=== PATIENT | male | born 1945 | race Caucasian/White ===

== ENCOUNTER 2016-12-10 13:35 | Inpatient (IN) | payer MEDICARE, BC ==
[2016-12-10] MEDS ORDERED: Ondansetron 4 MG/2 ML SDV IVPUSH ONE (14:00)
--- NOTE | 2016-12-10 15:09 | EDM.PDOC ---
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 He had a major stroke in April 01, 2005 and another one in June of 2005 that has left him with residual left sided weakness. He was being walked out to the car at around one pm today and he had weakness and was not following commands easily but he did kneel down to his knees gently. His says that she thinks he has had a number of TIA's or small strokes in the last 2 weeks and she thinks this is probably another one occurring. No pain and new symptoms other than problems with control of bowel and bladder off and on the last 2 weeks. Onset: Gradual Onset Date: 11/26/16 Onset Time: 07:00 Duration: Week(s): (2) Location: Reports: Upper Extremity, Left, Lower Extremity, Left Quality: Reports: Same as Previous Episode Severity: Mild Improves with: Reports: None Worsens with: Reports: None Context: Reports: Other (History of shunt and strokes.) Associated Symptoms: Reports: Nausea/Vomiting Treatments [employer] SAL[employer]GER: Reports: Other (see below) (Plavix) - Related Data Allergies Allergy/AdvReac Type Severity Reaction Status Date / Time acetaminophen [From Tylenol] Allergy Hives Verified 12/10/16 13:53 codeine Allergy Hives Verified 12/10/16 13:53 ibuprofen Allergy Hives Verified 12/10/16 13:53 morphine Allergy Hives Verified 12/10/16 13:53 sulfamethoxazole Allergy Hives Verified 12/10/16 13:53 [Sulfamethoxazole] Home Meds: Home Meds Indomethacin 25 mg PO TID PRN 10/28/12 [History] Loperamide [Imodium AD] 1 mg PO BID PRN 10/28/12 [History] Losartan Potassium 25 mg PO DAILY 10/28/12 [History] Sertraline HCl 200 mg PO DAILY 10/28/12 [History] Clopidogrel Bisulfate [Plavix] 75 mg PO DAILY 12/26/15 [History] Rosuvastatin Calcium [Rosuvastatin Calcium] 20 mg PO QPM 12/10/16 [History] Past Medical History HEENT History: Reports: Hard of Hearing, Impaired Vision Cardiovascular History: Reports: High Cholesterol, Hypertension Other Cardiovascular History: hydrocephalus Respiratory History: Reports: Sleep Apnea, SOB, Other (See Below) Other Respiratory History: left thoracic outlet syndrome Gastrointestinal History: Reports: Chronic Diarrhea, Hemorrhoids Other Gastrointestinal History: uses anit-diarrhea med but then became constipated Genitourinary History: Reports: None Musculoskeletal History: Reports: Back Pain, Chronic, Fracture Other Musculoskeletal History: R hip, L arm and leg parasthesia and increased muscle tone from CVA Neurological History: Reports: CVA, TIA, Other (See Below) Other Neuro History: 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 Psychiatric History: Reports: Depression Endocrine/Metabolic History: Reports: None Hematologic History: Reports: None Immunologic History: Reports: None Oncologic (Cancer) History: Reports: None Dermatologic History: Reports: Other (See Below) - Infectious Disease History Infectious Disease History: Reports: Chicken Pox, Influenza, Measles, MRSA, Mumps, Pertussis (Whooping Cough) - Past Surgical History Respiratory Surgical History: Reports: Other (See Below) Other Respiratory Surgeries/Procedures: removed 1st left rib GI Surgical History: Reports: Other (See Below) Other GI Surgeries/Procedures: hemorrhoidectomy Neurological Surgical History: Reports: Laminectomy, Lumbar Spine, Other (See Below) Other Neurological Surgeries/Procedures: shunt revisions Musculoskeletal Surgical History: Reports: Shoulder Surgery Social & Family History - Family History Family Medical History: Noncontributory - Tobacco Use Smoking Status *Q: Former Smoker - Caffeine Use Caffeine Use: Reports: Soda, Tea - Recreational Drug Use Recreational Drug Use: No ED ROS GENERAL - Review of Systems Review Of Systems: See Below Constitutional: Reports: Weakness HEENT: Reports: No Symptoms Respiratory: Reports: No Symptoms Cardiovascular: Reports: No Symptoms Endocrine: Reports: No Symptoms GI/Abdominal: Reports: Stool Incontinence : Reports: Incontinence Musculoskeletal: Reports: No Symptoms Skin: Reports: No Symptoms Neurological: Reports: Confusion (Left sided weakness worse and confused.), Difficulty Walking, Weakness Psychiatric: Reports: No Symptoms Hematologic/Lymphatic: Reports: No Symptoms Immunologic: Reports: No Symptoms ED EXAM, NEURO - Physical Exam Exam: See Below Exam Limited By: No Limitations General Appearance: Alert, WD/WN, No Apparent Distress Eye Exam: Bilateral Eye: EOMI, Normal Fundi, PERRL Ears: Normal External Exam, Normal Canal, Hearing Grossly Normal, Normal TMs Nose: Normal Inspection, Normal Mucosa, No Blood Throat/Mouth: Normal Inspection, Normal Lips, Normal Teeth, Normal Gums, Normal Oropharynx, Normal Voice, No Airway Compromise Head Exam: Atraumatic, Normocephalic Neck: Normal Inspection Respiratory/Chest: No Respiratory Distress, Lungs Clear, Normal Breath Sounds, No Accessory Muscle Use, Chest Non-Tender Cardiovascular: Normal Peripheral Pulses, Regular Rate, Rhythm, No Edema, No Gallop, No JVD, No Murmur, No Rub GI/Abdominal: Normal Bowel Sounds, Soft, Non-Tender, No Organomegaly, No Distention, No Abnormal Bruit, No Mass Neurological: Alert, Normal Mood/Affect, Difficulty Walking, Other (Left arm and left leg weak and in an AFO on the left lower leg.) Extremities: Normal Inspection, Non-Tender, No Pedal Edema, Normal Capillary Refill Psychiatric: Normal Affect, Normal Mood Skin Exam: Warm, Dry, Intact, Normal Color, No Rash EKG INTERPRETATION EKG Date: 12/10/16 Rhythm: NSR [place]: Normal P-Wave: Present QRS: Normal ST-T: Normal QT: Normal Comparison: NA - No Prior EKG Course - Vital Signs Last Recorded V/S: Patient had an uneventful ED course. His EKG and Troponin were normal and his Head CT showed his old stroke but nothing new. He will be admitted to the hospital on observation to carefully watch his neuro checks. He will be continued on Plavix and all of his other medications and PT and OT will be ordered to help rehabilitation tomorrow. Dr. Vargas will see him in the AM. - Orders/Labs/Meds Orders: Active Orders 24 hr Category Date Time Status EKG Documentation Completion [RC] ASDIRECTED Care 12/10/16 13:58 Active Head wo Cont [CT] Stat Exams 12/10/16 13:58 Taken Sodium Chloride 0.9% [Saline Flush] Med 12/10/16 13:59 Active 10 ml FLUSH ASDIRECTED PRN Saline Lock Insert [OM.PC] Routine Oth 12/10/16 13:59 Ordered Medication Orders Sodium Chloride (Saline Flush) 10 ml FLUSH ASDIRECTED PRN PRN Reason: Keep Vein Open Labs: Laboratory Tests 12/10/16 12/10/16 Range/Units 14:15 14:15 WBC 5.8 (4.0-11.0) K/uL RBC 4.77 (4.50-6.50) M/uL Hgb 14.3 (13.0-18.0) g/dL Hct 42.4 (40.0-54.0) % MCV 89 (76-96) fL MCH 30.0 (27.0-32.0) pg MCHC 33.7 (31.0-35.0) g/dL RDW 13.5 (11.0-16.0) % Plt Count 160 (150-400) K/uL MPV 10.4 H (6.0-10.0) fL Neut % (Auto) 69.0 (45.0-70.0) % Lymph % (Auto) 21.9 (20.0-40.0) % [place] % (Auto) 7.4 (3.0-10.0) % Eos % (Auto) 1.5 (1.0-5.0) % Baso % (Auto) 0.2 (0.0-0.5) % Neut # (Auto) 4.03 (2.00-7.50) K/uL Lymph # (Auto) 1.28 L (1.50-4.00) K/uL [place] # (Auto) 0.43 (0.20-0.80) K/uL Eos # (Auto) 0.09 (0.04-0.40) K/uL Baso # (Auto) 0.01 L (0.02-0.10) K/uL Sodium 141 (136-145) mmol/L Potassium 4.1 (3.5-5.1) mmol/L Chloride 106 (98-107) mmol/L Carbon Dioxide 23.2 (21.0-32.0) mmol/L Anion Gap 15.9 H (5.0-15.0) mmol/L BUN 13 (8-26) mg/dL Creatinine 1.11 (0.70-1.30) mg/dL Est Cr Clr Drug Dosing TNP Estimated GFR (MDRD) > 60 (>60) MLS/MIN BUN/Creatinine Ratio 11.7 (6-25) Glucose 137 H D (74-100) mg/dL Calcium 9.4 (8.5-10.1) mg/dL Total Bilirubin 0.4 (0.0-1.0) mg/dL AST 26 (15-37) U/L ALT 33 (12-78) U/L Alkaline Phosphatase 84 (46-116) U/L Troponin I < 0.017 (0.000-0.060) ng/mL Total Protein 7.3 (6.4-8.2) g/dL Albumin 4.0 (3.4-5.0) g/dL Globulin 3.3 (2.2-4.2) g/dL Albumin/Globulin Ratio 1.2 (0.8-2.0) Meds: Medications Generic Name Dose Route Start Last Admin Trade Name Freq PRN Reason Stop Dose Admin Sodium Chloride 10 ml 12/10/16 13:59 Saline Flush FLUSH ASDIRECTED PRN Keep Vein Open Discontinued Medications Generic Name Dose Route Start Last Admin Trade Name Freq PRN Reason Stop Dose Admin Ondansetron HCl 4 mg 12/10/16 14:00 12/10/16 14:36 Zofran IVPUSH 12/10/16 14:01 4 mg ONETIME ONE Administration Departure - Departure Time of Disposition: 15:17 Disposition: Refer to Observation Condition: Fair Clinical Impression: TIA on medication - Discharge Information - My Orders Last 24 Hours: My Active Orders 12/10/16 13:58 EKG Documentation Completion [RC] ASDIRECTED Head wo Cont [CT] Stat 12/10/16 13:59 Sodium Chloride 0.9% [Saline Flush] 10 ml FLUSH ASDIRECTED PRN Saline Lock Insert [OM.PC] Routine - Assessment/Plan Last 24 Hours: My Active Orders 12/10/16 13:58 EKG Documentation Completion [RC] ASDIRECTED Head wo Cont [CT] Stat 12/10/16 13:59 Sodium Chloride 0.9% [Saline Flush] 10 ml FLUSH ASDIRECTED PRN Saline Lock Insert [OM.PC] Routine
[2016-12-10] MEDS ORDERED: Loperamide 1 MG/5 ML ML Solution 120 ML Bottle PO PRN (17:24)
[2016-12-10] MEDS: Non-Formulary Medication 1 Each (Rosuvastatin Calcium [Rosuvastatin Calcium] 20 MG) PO SCH (20:07)
--- NOTE | 2016-12-10 20:13 | CT ---
DATE OF SERVICE: 12/10/2016 CLINICAL DATA: TIA. UNENHANCED BRAIN CT Multislice acquisition through the brain without IV contrast was performed. No priors. There is diffuse cerebral atrophy. There is a ASSEM[employer] LINE shunt in place with its distal tip in the right lateral ventricle. There is distention of the lateral and third ventricles out of proportion to the degree of atrophy. There is extensive encephalomalacia within the right hemisphere consistent with a prior infarct. No masses. No intracranial hemorrhage. No evidence of acute or subacute infarct. IMPRESSION: Multiple abnormalities. None of these appear to be acute. Comparison with a prior CT may be helpful. [id number] MTDD
[2016-12-11] MEDS: LOSARTAN POTASSIUM 25 MG PO SCH (07:27)
[2016-12-11] MEDS: Loperamide 1 MG/5 ML ML Solution 120 ML Bottle PO SCH ×2 (07:27→19:41)
[2016-12-11] MEDS: SERTRALINE HCL 200 MG PO SCH (07:27)
[2016-12-11] MEDS: CLOPIDOGREL BISULFATE 75 MG PO SCH (07:27)
[2016-12-11] MEDS ORDERED: Bisacodyl 10 MG Supp ONE (14:12)
[2016-12-11] MEDS ORDERED: Bisacodyl 10 MG Supp RECTAL ONE (14:15)
--- NOTE | 2016-12-11 14:23 | PCM.PN ---
- General Info Date of Service: 12/11/16 Subjective Update: This is a pleasant 70yo M with multiple prior TIA's and history of CVA with hemiparesis in observation due to recent episode of TIA like symptoms. He remains confused and weak. notes difficulty in movement, speech and recall/ memory with minimal improvement since placed in observation. - Review of Systems General: Reports: Weakness HEENT: Reports: No Symptoms Pulmonary: Reports: No Symptoms Cardiovascular: Reports: No Symptoms Gastrointestinal: Reports: No Symptoms Genitourinary: Reports: No Symptoms Musculoskeletal: Reports: Arm Pain, Back Pain Skin: Reports: No Symptoms Neurological: Reports: Pre-Existing Deficit, Weakness Psychiatric: Reports: Confusion - Patient Data Vitals - Most Recent: Last Vital Signs Temp 35.8 C 12/11/16 12:00 Pulse 72 12/11/16 12:00 Resp 18 12/11/16 12:00 BP 113/80 12/11/16 12:00 Pulse Ox 97 12/11/16 12:00 Weight - Most Recent: 103.873 kg Med Orders - Current: Current Medications Loperamide HCl (Imodium) 1 mg PO BID [facility] Last Admin: 12/11/16 07:27 Dose: 1 mg Non-Formulary Medication (Clopidogrel Bisulfate [Plavix]) 75 mg PO DAILY [facility] Last Admin: 12/11/16 07:27 Dose: 75 mg Non-Formulary Medication (Losartan Potassium [Losartan Potassium]) 25 mg PO DAILY [facility] Last Admin: 12/11/16 07:27 Dose: 25 mg Non-Formulary Medication (Rosuvastatin Calcium [Rosuvastatin Calcium]) 20 mg PO QPM [facility] Last Admin: 12/10/16 20:07 Dose: 20 mg Non-Formulary Medication (Sertraline Hcl [Sertraline Hcl]) 200 mg PO DAILY [facility] Last Admin: 12/11/16 07:27 Dose: 200 mg Sodium Chloride (Saline Flush) 10 ml FLUSH ASDIRECTED PRN PRN Reason: Keep Vein Open Discontinued Medications Bisacodyl (Dulcolax) Confirm Administered Dose 10 mg .ROUTE .STK-MED ONE Stop: 12/11/16 14:13 Loperamide HCl (Imodium) 1 mg PO BID PRN PRN Reason: Diarrhea Last Admin: 12/10/16 20:06 Dose: 1 mg Ondansetron HCl (Zofran) 4 mg IVPUSH ONETIME ONE Stop: 12/10/16 14:01 Last Admin: 12/10/16 14:36 Dose: 4 mg - Exam General: Alert, Cooperative HEENT: Pupils Equal, Pupils Reactive, EOMI Neck: Supple Lungs: Clear to Auscultation, Normal Respiratory Effort Cardiovascular: Regular Rate, Regular Rhythm GI/Abdominal Exam: Normal Bowel Sounds Extremities: Arm Pain, Leg Pain Peripheral Pulses: 2+: Dorsalis Pedis (L), Dorsalis Pedis (R) Skin: Warm, Dry, Intact Neurological: No New Focal Deficit, Other (weakness) Psy/Mental Status: Alert, Normal Affect, Normal Mood - Problem List & Annotations (1) TIA on medication SNOMED Code(s): 068001423 Code(s): G45.9 - TRANSIENT CEREBRAL ISCHEMIC ATTACK, UNSPECIFIED Status: Acute Current Visit: Yes (2) Weakness of lower extremity SNOMED Code(s): 177313161 Code(s): M62.81 - MUSCLE WEAKNESS (GENERALIZED) Status: Acute Current Visit: No Onset Date: ~09/30/15 (3) Falls SNOMED Code(s): 0165732 Code(s): W19.XXXA - UNSPECIFIED FALL, INITIAL ENCOUNTER Status: Acute Current Visit: No Onset Date: ~09/30/15 (4) Knee pain SNOMED Code(s): 10002844 Code(s): M25.569 - PAIN IN UNSPECIFIED KNEE Status: Acute Current Visit: No Onset Date: ~09/30/15 - Problem List Review Problem List Initiated/Reviewed/Updated: Yes - My Orders Last 24 Hours: My Active Orders 12/11/16 13:51 Patient Status [ADT] Routine - Plan Plan:: Patient to be admitted for recent TIAs. It does appear he has had multiple minor TIA and possible stroke as well due to new onset weakness and confusion. Continue on current medication and Neuro checks.
[2016-12-11] MEDS ORDERED: Rosuvastatin 20 MG Tab ONE (19:39)
[2016-12-11] MEDS ORDERED: Loperamide 2 MG Cap ONE (19:39)
[2016-12-11] MEDS: Non-Formulary Medication 1 Each (Rosuvastatin Calcium [Rosuvastatin Calcium] 20 MG) PO SCH (19:41)
[2016-12-11] MEDS: Sodium Chloride 0.9% 10 ML Syringe FLUSH PRN (20:59)
[2016-12-12] MEDS ORDERED: Clopidogrel 75 MG Tab ONE (08:05)
[2016-12-12] MEDS ORDERED: Losartan 25 MG Tab ONE (08:07)
[2016-12-12] MEDS ORDERED: Loperamide 2 MG Cap ONE (08:09)
[2016-12-12] MEDS ORDERED: Sertraline 100 MG Tab ONE (08:10)
[2016-12-12] MEDS: CLOPIDOGREL BISULFATE 75 MG PO SCH (08:12)
[2016-12-12] MEDS: SERTRALINE HCL 200 MG PO SCH (08:13)
[2016-12-12] MEDS: LOSARTAN POTASSIUM 25 MG PO SCH (08:14)
[2016-12-12] MEDS: Loperamide 1 MG/5 ML ML Solution 120 ML Bottle PO SCH ×2 (08:32→19:56)
--- NOTE | 2016-12-12 10:52 | PCM.PN ---
- General Info Date of Service: 12/12/16 Subjective Update: This is a 70yo M here for recent TIA and likely mini-strokes for monitoring and PT/OT as needed. Patient has improved confusion today and able to recall the events around the memory loss. He has slightly improved strength and cognition. Functional Status: Reports: Pain Controlled, Tolerating Diet - Review of Systems General: Reports: Weakness HEENT: Reports: No Symptoms Pulmonary: Reports: No Symptoms Cardiovascular: Reports: No Symptoms Gastrointestinal: Reports: No Symptoms Genitourinary: Reports: No Symptoms Musculoskeletal: Reports: Shoulder Pain, Back Pain Skin: Reports: No Symptoms Neurological: Reports: Pre-Existing Deficit, Weakness, Gait Disturbance - Patient Data Vitals - Most Recent: Last Vital Signs Temp 36.3 C 12/12/16 08:34 Pulse 96 12/12/16 08:34 Resp 16 12/12/16 08:34 BP 134/75 12/12/16 08:34 Pulse Ox 96 12/12/16 08:34 Weight - Most Recent: 103.873 kg I&O - Last 24 Hours: Intake & Output 12/11/16 12/12/16 12/12/16 22:59 06:59 14:59 Output Total 275 Balance -275 Med Orders - Current: Current Medications Loperamide HCl (Imodium) 1 mg PO BID [facility] Last Admin: 12/12/16 08:32 Dose: 1 mg Non-Formulary Medication (Clopidogrel Bisulfate [Plavix]) 75 mg PO DAILY [facility] Last Admin: 12/12/16 08:12 Dose: 75 mg Non-Formulary Medication (Losartan Potassium [Losartan Potassium]) 25 mg PO DAILY [facility] Last Admin: 12/12/16 08:14 Dose: 25 mg Non-Formulary Medication (Rosuvastatin Calcium [Rosuvastatin Calcium]) 20 mg PO QPM [facility] Last Admin: 12/11/16 19:41 Dose: 20 mg Non-Formulary Medication (Sertraline Hcl [Sertraline Hcl]) 200 mg PO DAILY [facility] Last Admin: 12/12/16 08:13 Dose: 200 mg Sodium Chloride (Saline Flush) 10 ml FLUSH ASDIRECTED PRN PRN Reason: Keep Vein Open Last Admin: 12/11/16 20:59 Dose: 10 ml Discontinued Medications Bisacodyl (Dulcolax) Confirm Administered Dose 10 mg .ROUTE .STK-MED ONE Stop: 12/11/16 14:13 Last Admin: 12/11/16 14:20 Dose: Not Given Bisacodyl (Dulcolax) 10 mg RECTAL ONETIME ONE Stop: 12/11/16 14:16 Last Admin: 12/11/16 14:15 Dose: 10 mg Clopidogrel Bisulfate (Plavix) Confirm Administered Dose 75 mg .ROUTE .STK-MED ONE Stop: 12/12/16 08:06 Last Admin: 12/12/16 08:31 Dose: Not Given Loperamide HCl (Imodium) 1 mg PO BID PRN PRN Reason: Diarrhea Last Admin: 12/10/16 20:06 Dose: 1 mg Loperamide HCl (Imodium) Confirm Administered Dose 2 mg .ROUTE .STK-MED ONE Stop: 12/11/16 19:40 Last Admin: 12/11/16 19:42 Dose: Not Given Loperamide HCl (Imodium) Confirm Administered Dose 2 mg .ROUTE .STK-MED ONE Stop: 12/12/16 08:10 Last Admin: 12/12/16 08:32 Dose: Not Given Losartan Potassium (Cozaar) Confirm Administered Dose 25 mg .ROUTE .STK-MED ONE Stop: 12/12/16 08:08 Last Admin: 12/12/16 08:31 Dose: Not Given Ondansetron HCl (Zofran) 4 mg IVPUSH ONETIME ONE Stop: 12/10/16 14:01 Last Admin: 12/10/16 14:36 Dose: 4 mg Rosuvastatin Calcium (Crestor) Confirm Administered Dose 20 mg .ROUTE .STK-MED ONE Stop: 12/11/16 19:40 Last Admin: 12/11/16 19:42 Dose: Not Given Sertraline HCl (Zoloft) Confirm Administered Dose 200 mg .ROUTE .STK-MED ONE Stop: 12/12/16 08:11 Last Admin: 12/12/16 08:15 Dose: Not Given - Exam General: Alert, Oriented, Cooperative HEENT: Pupils Equal, Pupils Reactive, EOMI Neck: Supple Lungs: Clear to Auscultation, Normal Respiratory Effort Cardiovascular: Regular Rate, Regular Rhythm Extremities: Other (hemiparesis) Peripheral Pulses: 2+: Dorsalis Pedis (L), Dorsalis Pedis (R) - Problem List & Annotations (1) TIA on medication SNOMED Code(s): 537826632 Code(s): G45.9 - TRANSIENT CEREBRAL ISCHEMIC ATTACK, UNSPECIFIED Status: Acute Current Visit: Yes (2) Weakness of lower extremity SNOMED Code(s): 820956744 Code(s): M62.81 - MUSCLE WEAKNESS (GENERALIZED) Status: Acute Current Visit: No Onset Date: ~09/30/15 (3) Falls SNOMED Code(s): 5684810 Code(s): W19.XXXA - UNSPECIFIED FALL, INITIAL ENCOUNTER Status: Acute Current Visit: No Onset Date: ~09/30/15 (4) Knee pain SNOMED Code(s): 86932046 Code(s): M25.569 - PAIN IN UNSPECIFIED KNEE Status: Acute Current Visit: No Onset Date: ~09/30/15 - Problem List Review Problem List Initiated/Reviewed/Updated: Yes - My Orders Last 24 Hours: My Active Orders 12/12/16 09:03 CULTURE MRSA SURVEY [RM] Routine - Plan Plan:: Patient to be admitted for recent TIAs. It does appear he has had multiple minor TIA and possible stroke as well due to new onset weakness and confusion. Continue on current medication and Neuro checks. 12/12/16 Patient has improved from yesterday. There continues to be weakness and difficult with transfer and walking as his baseline has been with a walker. He will require further monitoring and PT/OT at this time. His cognition and confusion has improved. He still has a memory block and loss of time within that block. He does appear improved today compared to yesterday.
[2016-12-12] MEDS: Sodium Chloride 0.9% 10 ML Syringe FLUSH PRN ×2 (14:00→19:55)
[2016-12-12] MEDS ORDERED: CLOPIDOGREL BISULFATE 75 MG PO SCH (15:44)
[2016-12-12] MEDS ORDERED: Non-Formulary Medication 1 Each (Rosuvastatin Calcium [Rosuvastatin Calcium] 20 MG) PO SCH (15:45)
[2016-12-12] MEDS ORDERED: LOSARTAN POTASSIUM 25 MG PO SCH (15:45)
[2016-12-12] MEDS ORDERED: SERTRALINE HCL 200 MG PO SCH (15:45)
[2016-12-12] MEDS: Rosuvastatin 20 MG Tab PO SCH (19:56)
[2016-12-13] MEDS: Clopidogrel 75 MG Tab PO SCH (07:41)
[2016-12-13] MEDS: Losartan 25 MG Tab PO SCH (07:42)
[2016-12-13] MEDS: Sertraline 100 MG Tab PO SCH (07:44)
[2016-12-13] MEDS: Loperamide 1 MG/5 ML ML Solution 120 ML Bottle PO SCH (07:47)
[2016-12-13] MEDS ORDERED: Loperamide 2 MG Cap PO PRN (13:58)
[2016-12-13] MEDS ORDERED: Indomethacin 25 MG Cap PO PRN (14:11)
--- NOTE | 2016-12-13 16:52 | PCM.PN ---
- General Info Date of Service: 12/13/16 Subjective Update: Pt claims he feels better today. He was able to recognize me from 5 years ago when he was my patient on today's visit. feels he is improving. Able to feed well. Answering questions appropriately. No confusion. No weakness in the limbs, using his cane to move around in the room, with minimal assistance. - Review of Systems General: Denies: Fever, Weakness HEENT: Denies: Sinus Congestion Pulmonary: Denies: Cough, Sputum Cardiovascular: Denies: Chest Pain, Palpitations Gastrointestinal: Denies: Abdominal Pain, Constipation Genitourinary: Denies: Frequency, Burning Musculoskeletal: Denies: Shoulder Pain, Arm Pain, Joint Pain, Joint Swelling Skin: Denies: Bruising, Pruritis Neurological: Denies: Confusion, Dizziness, Headache, Paresthesia - Patient Data Vitals - Most Recent: Last Vital Signs Temp 97.8 F 12/13/16 08:00 Pulse 57 L 12/13/16 16:00 Resp 15 12/13/16 03:21 BP 136/62 12/13/16 16:00 Pulse Ox 96 12/13/16 16:00 Weight - Most Recent: 103.873 kg I&O - Last 24 Hours: Intake & Output 12/13/16 12/13/16 12/13/16 06:59 14:59 22:59 Intake Total 360 Output Total 300 Balance 60 Pedro Results Last 24 Hours: Microbiology 12/12/16 13:56 MRSA Surveillance Culture - Final Nasal, Unspecified NO MRSA ISOLATED Med Orders - Current: Current Medications Clopidogrel Bisulfate (Plavix) 75 mg PO DAILY [facility] Last Admin: 12/13/16 07:41 Dose: 75 mg Indomethacin (Indocin) 25 mg PO TID PRN PRN Reason: MILD PAIN Loperamide HCl (Imodium) 2 mg PO BID PRN PRN Reason: DIARRHEA Losartan Potassium (Cozaar) 25 mg PO DAILY [facility] Last Admin: 12/13/16 07:42 Dose: 25 mg Rosuvastatin Calcium (Crestor) 20 mg PO BEDTIME [facility] Last Admin: 12/12/16 19:56 Dose: 20 mg Sertraline HCl (Zoloft) 200 mg PO DAILY [facility] Last Admin: 12/13/16 07:44 Dose: 200 mg Sodium Chloride (Saline Flush) 10 ml FLUSH ASDIRECTED PRN PRN Reason: Keep Vein Open Last Admin: 12/12/16 19:55 Dose: 10 ml Discontinued Medications Bisacodyl (Dulcolax) Confirm Administered Dose 10 mg .ROUTE .STK-MED ONE Stop: 12/11/16 14:13 Last Admin: 12/11/16 14:20 Dose: Not Given Bisacodyl (Dulcolax) 10 mg RECTAL ONETIME ONE Stop: 12/11/16 14:16 Last Admin: 12/11/16 14:15 Dose: 10 mg Clopidogrel Bisulfate (Plavix) Confirm Administered Dose 75 mg .ROUTE .STK-MED ONE Stop: 12/12/16 08:06 Last Admin: 12/12/16 08:31 Dose: Not Given Loperamide HCl (Imodium) 1 mg PO BID PRN PRN Reason: Diarrhea Last Admin: 12/10/16 20:06 Dose: 1 mg Loperamide HCl (Imodium) 1 mg PO BID [facility] Last Admin: 12/13/16 07:47 Dose: Not Given Loperamide HCl (Imodium) Confirm Administered Dose 2 mg .ROUTE .STK-MED ONE Stop: 12/11/16 19:40 Last Admin: 12/11/16 19:42 Dose: Not Given Loperamide HCl (Imodium) Confirm Administered Dose 2 mg .ROUTE .STK-MED ONE Stop: 12/12/16 08:10 Last Admin: 12/12/16 08:32 Dose: Not Given Losartan Potassium (Cozaar) Confirm Administered Dose 25 mg .ROUTE .STK-MED ONE Stop: 12/12/16 08:08 Last Admin: 12/12/16 08:31 Dose: Not Given Non-Formulary Medication (Clopidogrel Bisulfate [Plavix]) 75 mg PO DAILY [facility] Last Admin: 12/12/16 08:12 Dose: 75 mg Non-Formulary Medication (Losartan Potassium [Losartan Potassium]) 25 mg PO DAILY [facility] Last Admin: 12/12/16 08:14 Dose: 25 mg Non-Formulary Medication (Rosuvastatin Calcium [Rosuvastatin Calcium]) 20 mg PO QPM [facility] Last Admin: 12/11/16 19:41 Dose: 20 mg Non-Formulary Medication (Sertraline Hcl [Sertraline Hcl]) 200 mg PO DAILY [facility] Last Admin: 12/12/16 08:13 Dose: 200 mg Non-Formulary Medication (Clopidogrel Bisulfate [Plavix]) 75 mg PO DAILY [facility] Non-Formulary Medication (Losartan Potassium [Losartan Potassium]) 25 mg PO DAILY [facility] Non-Formulary Medication (Rosuvastatin Calcium [Rosuvastatin Calcium]) 20 mg PO QPM [facility] Non-Formulary Medication (Sertraline Hcl [Sertraline Hcl]) 200 mg PO DAILY [facility] Ondansetron HCl (Zofran) 4 mg IVPUSH ONETIME ONE Stop: 12/10/16 14:01 Last Admin: 12/10/16 14:36 Dose: 4 mg Rosuvastatin Calcium (Crestor) Confirm Administered Dose 20 mg .ROUTE .STK-MED ONE Stop: 12/11/16 19:40 Last Admin: 12/11/16 19:42 Dose: Not Given Sertraline HCl (Zoloft) Confirm Administered Dose 200 mg .ROUTE .STK-MED ONE Stop: 12/12/16 08:11 Last Admin: 12/12/16 08:15 Dose: Not Given - Exam General: Alert, Oriented HEENT: Pupils Equal, Pupils Reactive, EOMI, Mucous Membr. 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 It does appear he has had multiple minor TIA and possible stroke as well due to new onset weakness and confusion. Continue on current medication and Neuro checks. 12/12/16 Patient has improved from yesterday. There continues to be weakness and difficult with transfer and walking as his baseline has been with a walker. He will require further monitoring and PT/OT at this time. His cognition and confusion has improved. He still has a memory block and loss of time within that block. He does appear improved today compared to yesterday. 12/13/16 On discussing with patient and his spouse, he had some weakness in his lower extremities, which was transient on the day of admission, but over the past 3 months now, he has been having episodes of confusion with time, side and situations, according to his . also he does get weakness in this right upper or lower extremity, which clears up on its own. Apparently he might be having TIAs or there could be carotid disease or non specific age related weakness or confusion. Hence I did order Carotid Doppler for him .Meanwhile will wait on physio-therapy evaluation. If he is at his baseline level of function, and his carotid ultrasound appear normal, will plan on discharge in the morning.
[2016-12-13] MEDS: Rosuvastatin 20 MG Tab PO SCH (21:46)
[2016-12-14] MEDS: Sertraline 100 MG Tab PO SCH (07:30)
[2016-12-14] MEDS: Clopidogrel 75 MG Tab PO SCH (07:31)
[2016-12-14] MEDS: Losartan 25 MG Tab PO SCH (07:37)
--- NOTE | 2016-12-14 17:12 | US ---
DATE OF SERVICE: 12/14/16 CLINICAL DATA: Old Left hemiplegia with Possible TIA DUPLEX CAROTID ULTRASOUND RIGHT CAROTID SYSTEM: There is antegrade flow. There is atherosclerotic plaquing in the carotid bulb and proximal ICA. The flow velocities are within normal limits. These findings are consistent with 0% to 50% stenosis. LEFT CAROTID SYSTEM: There is antegrade flow. There is minimal atherosclerotic plaquing in the carotid bulb. The flow velocities are within normal limits. These findings are consistent with 0% to 50% stenosis. VERTEBRAL SYSTEM: There is bilateral antegrade vertebral flow. [id number] [facility]
[2016-12-14] MEDS ORDERED: predniSONE 20 MG Tab ONE (18:11)
--- NOTE | 2016-12-14 18:13 | PCM.PN ---
- General Info Date of Service: 12/14/16 Subjective Update: Pt has been doing well today. He claims he feels at his baseline functioning. He did walk from his room to radiology and back 4 times today. he has developed some itchy rash over the legs today, which he has been scratching and the rash is locally spreading. He claims he is very sensitive to clothings and detergents. No fever or chills. Did have carotid ultrasound today. Functional Status: Reports: Pain Controlled, Tolerating Diet, Ambulating, Urinating - Review of Systems General: Denies: Fever, Weakness, Fatigue HEENT: Denies: Sinus Congestion, Rhinitis Pulmonary: Denies: Shortness of Breath, Cough, Hemoptysis Cardiovascular: Denies: Chest Pain, Lightheadedness Gastrointestinal: Denies: Abdominal Pain, Nausea, Vomiting Genitourinary: Denies: Dysuria, Frequency Musculoskeletal: Denies: Joint Pain, Joint Swelling Skin: Reports: Pruritis, Rash Neurological: Reports: Pre-Existing Deficit (left hemiparesis). Denies: Confusion, Dizziness - Patient Data Vitals - Most Recent: Last Vital Signs Temp 97.4 F 12/14/16 12:00 Pulse 62 12/14/16 12:00 Resp 18 12/14/16 04:00 BP 117/62 12/14/16 12:00 Pulse Ox 94 L 12/14/16 12:00 Weight - Most Recent: 103.873 kg Pedro Results Last 24 Hours: Microbiology 12/12/16 13:56 MRSA Surveillance Culture - Final Nasal, Unspecified NO MRSA ISOLATED Med Orders - Current: Current Medications Clopidogrel Bisulfate (Plavix) 75 mg PO DAILY [facility] Last Admin: 12/14/16 07:31 Dose: 75 mg Indomethacin (Indocin) 25 mg PO TID PRN PRN Reason: MILD PAIN Loperamide HCl (Imodium) 2 mg PO BID PRN PRN Reason: DIARRHEA Losartan Potassium (Cozaar) 25 mg PO DAILY [facility] Last Admin: 12/14/16 07:37 Dose: 25 mg Prednisone (Prednisone) 40 mg PO ONETIME ONE Stop: 12/14/16 18:05 Rosuvastatin Calcium (Crestor) 20 mg PO BEDTIME [facility] Last Admin: 12/13/16 21:46 Dose: 20 mg Sertraline HCl (Zoloft) 200 mg PO DAILY [facility] Last Admin: 12/14/16 07:30 Dose: 200 mg Sodium Chloride (Saline Flush) 10 ml FLUSH ASDIRECTED PRN PRN Reason: Keep Vein Open Last Admin: 12/12/16 19:55 Dose: 10 ml Discontinued Medications Bisacodyl (Dulcolax) Confirm Administered Dose 10 mg .ROUTE .STK-MED ONE Stop: 12/11/16 14:13 Last Admin: 12/11/16 14:20 Dose: Not Given Bisacodyl (Dulcolax) 10 mg RECTAL ONETIME ONE Stop: 12/11/16 14:16 Last Admin: 12/11/16 14:15 Dose: 10 mg Clopidogrel Bisulfate (Plavix) Confirm Administered Dose 75 mg .ROUTE .STK-MED ONE Stop: 12/12/16 08:06 Last Admin: 12/12/16 08:31 Dose: Not Given Loperamide HCl (Imodium) 1 mg PO BID PRN PRN Reason: Diarrhea Last Admin: 12/10/16 20:06 Dose: 1 mg Loperamide HCl (Imodium) 1 mg PO BID [facility] Last Admin: 12/13/16 07:47 Dose: Not Given Loperamide HCl (Imodium) Confirm Administered Dose 2 mg .ROUTE .STK-MED ONE Stop: 12/11/16 19:40 Last Admin: 12/11/16 19:42 Dose: Not Given Loperamide HCl (Imodium) Confirm Administered Dose 2 mg .ROUTE .STK-MED ONE Stop: 12/12/16 08:10 Last Admin: 12/12/16 08:32 Dose: Not Given Losartan Potassium (Cozaar) Confirm Administered Dose 25 mg .ROUTE .STK-MED ONE Stop: 12/12/16 08:08 Last Admin: 12/12/16 08:31 Dose: Not Given Non-Formulary Medication (Clopidogrel Bisulfate [Plavix]) 75 mg PO DAILY [facility] Last Admin: 12/12/16 08:12 Dose: 75 mg Non-Formulary Medication (Losartan Potassium [Losartan Potassium]) 25 mg PO DAILY [facility] Last Admin: 12/12/16 08:14 Dose: 25 mg Non-Formulary Medication (Rosuvastatin Calcium [Rosuvastatin Calcium]) 20 mg PO QPM [facility] Last Admin: 12/11/16 19:41 Dose: 20 mg Non-Formulary Medication (Sertraline Hcl [Sertraline Hcl]) 200 mg PO DAILY [facility] Last Admin: 12/12/16 08:13 Dose: 200 mg Non-Formulary Medication (Clopidogrel Bisulfate [Plavix]) 75 mg PO DAILY [facility] Non-Formulary Medication (Losartan Potassium [Losartan Potassium]) 25 mg PO DAILY [facility] Non-Formulary Medication (Rosuvastatin Calcium [Rosuvastatin Calcium]) 20 mg PO QPM [facility] Non-Formulary Medication (Sertraline Hcl [Sertraline Hcl]) 200 mg PO DAILY [facility] Ondansetron HCl (Zofran) 4 mg IVPUSH ONETIME ONE Stop: 12/10/16 14:01 Last Admin: 12/10/16 14:36 Dose: 4 mg Rosuvastatin Calcium (Crestor) Confirm Administered Dose 20 mg .ROUTE .STK-MED ONE Stop: 12/11/16 19:40 Last Admin: 12/11/16 19:42 Dose: Not Given Sertraline HCl (Zoloft) Confirm Administered Dose 200 mg .ROUTE .STK-MED ONE Stop: 12/12/16 08:11 Last Admin: 12/12/16 08:15 Dose: Not Given - Exam General: Alert, Oriented HEENT: Pupils Equal, Pupils Reactive, EOMI, Mucous Membr. Moist/[place] Neck: Supple Lungs: Clear to Auscultation, Normal Respiratory Effort Cardiovascular: Regular Rate, Regular Rhythm GI/Abdominal Exam: Normal Bowel Sounds, Soft, Non-Tender, No Organomegaly, No Distention, No Abnormal Bruit, No Mass, Pelvis Stable Skin: Warm, Intact, Rash (there is irregualr excoriated pinkish red rash over the left leg pu[place]. he has similar small lesion over he right leg. No oozing or discharge, sensitive to touch.) Neurological: No New Focal Deficit Psy/Mental Status: Alert, Normal Affect - Problem List & Annotations (1) TIA on medication SNOMED Code(s): 508071357 Code(s): G45.9 - TRANSIENT CEREBRAL ISCHEMIC ATTACK, UNSPECIFIED Status: Acute Current Visit: Yes (2) Contact dermatitis SNOMED Code(s): 33436348 Code(s): L25.9 - UNSPECIFIED CONTACT DERMATITIS, UNSPECIFIED CAUSE Status: Acute Current Visit: Yes - Problem List Review Problem List Initiated/Reviewed/Updated: Yes - My Orders Last 24 Hours: My Active Orders 12/14/16 18:04 predniSONE 40 mg PO ONETIME ONE - Assessment Assessment:: Recent TIA Contact dermatitis of the legs - Plan Plan:: Patient to be admitted for recent TIAs. It does appear he has had multiple minor TIA and possible stroke as well due to new onset weakness and confusion. Continue on current medication and Neuro checks. 12/12/16 Patient has improved from yesterday. There continues to be weakness and difficult with transfer and walking as his baseline has been with a walker. He will require further monitoring and PT/OT at this time. His cognition and confusion has improved. He still has a memory block and loss of time within that block. He does appear improved today compared to yesterday. 12/13/16 On discussing with patient and his spouse, he had some weakness in his lower extremities, which was transient on the day of admission, but over the past 3 months now, he has been having episodes of confusion with time, side and situations, according to his . also he does get weakness in this right upper or lower extremity, which clears up on its own. Apparently he might be having TIAs or there could be carotid disease or non specific age related weakness or confusion. Hence I did order Carotid Doppler for him .Meanwhile will wait on physio-therapy evaluation. If he is at his baseline level of function, and his carotid ultrasound appear normal, will plan on discharge in the morning. 12/14/16 Pt has developed contact dermatitis of the legs. Have started him on oral prednisone 40mg daily and also on hydrocortisone 0.5% cream on the rash as it is locally very itchy. w Also pt is at his baseline of functioning. He prefers to go home and have out patient OT and PT workup. Which I do agree. there is no reason for him to be in the hospital if he can do most of the activity of daily living with out assistance. He probably needs strengthening which can be done as outpatient. Also his Carotid Ultrasound report appears normal and the results were discussed with patient.
[2016-12-14] MEDS ORDERED: predniSONE 20 MG Tab PO ONE (18:30)
[2016-12-14] MEDS: Rosuvastatin 20 MG Tab PO SCH (19:31)
[2016-12-15] MEDS: Sertraline 100 MG Tab PO SCH (07:47)
[2016-12-15] MEDS: Losartan 25 MG Tab PO SCH (07:47)
[2016-12-15] MEDS: Clopidogrel 75 MG Tab PO SCH (07:47)
[2016-12-15 07:51] VITALS: BP 134/68
--- NOTE | 2016-12-15 10:19 | PCM.DCSUM1 ---
Discharge Summary - Hospital Course Free Text/Narrative:: Pt was admitted on 12/10/16 with diagnosis of possible TIA with weakness. he did have CT head, which basically was stable, with no acute infract or bleed. Pt did have weakness for which he had physiotherapy and Occupational therapy . He has improved . I did take over care on 12/13/16. Pt was alert and oriented times 3. He was able to walk to the bathroom and back to bed using his cane, but still weak. As , his diagnosis was TIA, I did get Carotid Ultrasound ordered to make sure that he does not have any significant stenosis or atheroscleoritc disease of the carotid. 12/14/16: Pt was feeling better and he did have his carotid Doppler done. He was able to walk close to 100 yards using his cane which is his base line. Evening we did get the carotid oppler results, which showed no significant stenosis of the carotids. Results were discussed with patient and his . Pt did develop contact dermatitis in the evening over his legs. Was started on prednisone and hydrocortisone cream 0.5%. : pt is feeling fine. No complaints. Tolerating diet well. Ambulating. The rash over the legs has significantly improved and patient has not been itching the rash. Plan is to place patient on tapering dose of prednisone for 3 more day and hydrocortisone cream on the rash once daily. Continue home medications. Also Continue out patient physical therapy and occupational therapy for his back. Brief History: Pt had lower extremity weakness at home on 12/10/16 when he was planning to got out [place]. He was evaluated inthe emergency room and was diagnosed with TIA and admitted for workup and therapy. Kindly see H&P for details. - Discharge Data Discharge Date: 12/15/16 Discharge Disposition: Home, Self-Care 01 Condition: Good - Discharge Diagnosis/Problem(s) (1) TIA on medication SNOMED Code(s): 626667085 ICD Code: G45.9 - TRANSIENT CEREBRAL ISCHEMIC ATTACK, UNSPECIFIED Status: Acute Current Visit: Yes (2) Contact dermatitis SNOMED Code(s): 35104779 ICD Code: L25.9 - UNSPECIFIED CONTACT DERMATITIS, UNSPECIFIED CAUSE Status : Acute Current Visit: Yes - Patient Summary/Data Consults: Consultations 12/12/16 13:51 OT Evaluation and Treatment [CONS] Routine Please Evaluate and Treat. OT Reason for Consult: ADL's This query below is only for informational purposes and is not editable. Admission Diagnosis/Problem: TIA, Transient ischemic attack PT Evaluation and Treatment [CONS] Routine Please Evaluate and Treat. PT Reason for Consult: Strengthening This query below is only for informational purposes and is not editable. Admission Diagnosis/Problem: TIA, Transient ischemic attack - Patient Instructions Diet: Heart Healthy Diet Fluid Restriction: 1500 mL Activity: As Tolerated - Discharge Plan Home Medications: Home Meds Indomethacin 25 mg PO TID PRN 10/28/12 [History] Loperamide [Imodium AD] 1 mg PO BID PRN 10/28/12 [History] Losartan Potassium 25 mg PO DAILY 10/28/12 [History] Sertraline HCl 200 mg PO DAILY 10/28/12 [History] Clopidogrel Bisulfate [Plavix] 75 mg PO DAILY 12/26/15 [History] Rosuvastatin Calcium 20 mg PO QPM 12/10/16 [History] Patient Handouts: Fall Prevention in the Home, [id number] Forms: ED Department Discharge Referrals: PCP,None [Primary Care Provider] - - General Info Date of Service: 12/15/16 Subjective Update: Pt has been doing good. He has been able to ambulate with his cane at baseline level of functioning. The rash over the legs has improved. not itching any more. tolerating diet well. Functional Status: Reports: Pain Controlled, Tolerating Diet, Ambulating, Urinating - Review of Systems General: Denies: Fever, Weakness HEENT: Denies: Headaches, Sinus Congestion, Rhinitis Pulmonary: Denies: Shortness of Breath, Cough, Sputum, Hemoptysis Cardiovascular: Denies: Chest Pain, Lightheadedness Genitourinary: Denies: Dysuria, Frequency Musculoskeletal: Denies: Joint Pain, Joint Swelling Skin: Reports: Pruritis, Rash Neurological: Reports: Pre-Existing Deficit (left hemiparesis). Denies: Confusion, Dizziness, Headache, Numbness, Tingling, Weakness - Patient Data Vitals - Most Recent: Last Vital Signs Temp 97.7 F 12/15/16 08:00 Pulse 56 L 12/15/16 08:00 Resp 18 12/15/16 08:00 BP 134/68 12/15/16 08:00 Pulse Ox 97 12/15/16 08:00 Weight - Most Recent: 103.873 kg Med Orders - Current: Current Medications Clopidogrel Bisulfate (Plavix) 75 mg PO DAILY [facility] Last Admin: 12/15/16 07:47 Dose: 75 mg Indomethacin (Indocin) 25 mg PO TID PRN PRN Reason: MILD PAIN Loperamide HCl (Imodium) 2 mg PO BID PRN PRN Reason: DIARRHEA Losartan Potassium (Cozaar) 25 mg PO DAILY [facility] Last Admin: 12/15/16 07:47 Dose: 25 mg Rosuvastatin Calcium (Crestor) 20 mg PO BEDTIME [facility] Last Admin: 12/14/16 19:31 Dose: 20 mg Sertraline HCl (Zoloft) 200 mg PO DAILY [facility] Last Admin: 12/15/16 07:47 Dose: 200 mg Sodium Chloride (Saline Flush) 10 ml FLUSH ASDIRECTED PRN PRN Reason: Keep Vein Open Last Admin: 12/12/16 19:55 Dose: 10 ml Discontinued Medications Bisacodyl (Dulcolax) Confirm Administered Dose 10 mg .ROUTE .STK-MED ONE Stop: 12/11/16 14:13 Last Admin: 12/11/16 14:20 Dose: Not Given Bisacodyl (Dulcolax) 10 mg RECTAL ONETIME ONE Stop: 12/11/16 14:16 Last Admin: 12/11/16 14:15 Dose: 10 mg Clopidogrel Bisulfate (Plavix) Confirm Administered Dose 75 mg .ROUTE .STK-MED ONE Stop: 12/12/16 08:06 Last Admin: 12/12/16 08:31 Dose: Not Given Loperamide HCl (Imodium) 1 mg PO BID PRN PRN Reason: Diarrhea Last Admin: 12/10/16 20:06 Dose: 1 mg Loperamide HCl (Imodium) 1 mg PO BID [facility] Last Admin: 12/13/16 07:47 Dose: Not Given Loperamide HCl (Imodium) Confirm Administered Dose 2 mg .ROUTE .STK-MED ONE Stop: 12/11/16 19:40 Last Admin: 12/11/16 19:42 Dose: Not Given Loperamide HCl (Imodium) Confirm Administered Dose 2 mg .ROUTE .STK-MED ONE Stop: 12/12/16 08:10 Last Admin: 12/12/16 08:32 Dose: Not Given Losartan Potassium (Cozaar) Confirm Administered Dose 25 mg .ROUTE .STK-MED ONE Stop: 12/12/16 08:08 Last Admin: 12/12/16 08:31 Dose: Not Given Non-Formulary Medication (Clopidogrel Bisulfate [Plavix]) 75 mg PO DAILY [facility] Last Admin: 12/12/16 08:12 Dose: 75 mg Non-Formulary Medication (Losartan Potassium [Losartan Potassium]) 25 mg PO DAILY [facility] Last Admin: 12/12/16 08:14 Dose: 25 mg Non-Formulary Medication (Rosuvastatin Calcium [Rosuvastatin Calcium]) 20 mg PO QPM [facility] Last Admin: 12/11/16 19:41 Dose: 20 mg Non-Formulary Medication (Sertraline Hcl [Sertraline Hcl]) 200 mg PO DAILY [facility] Last Admin: 12/12/16 08:13 Dose: 200 mg Non-Formulary Medication (Clopidogrel Bisulfate [Plavix]) 75 mg PO DAILY [facility] Non-Formulary Medication (Losartan Potassium [Losartan Potassium]) 25 mg PO DAILY [facility] Non-Formulary Medication (Rosuvastatin Calcium [Rosuvastatin Calcium]) 20 mg PO QPM [facility] Non-Formulary Medication (Sertraline Hcl [Sertraline Hcl]) 200 mg PO DAILY [facility] Ondansetron HCl (Zofran) 4 mg IVPUSH ONETIME ONE Stop: 12/10/16 14:01 Last Admin: 12/10/16 14:36 Dose: 4 mg Prednisone (Prednisone) 40 mg PO ONETIME ONE Stop: 12/14/16 18:31 Last Admin: 12/14/16 19:31 Dose: Not Given Prednisone (Prednisone) Confirm Administered Dose 40 mg .ROUTE .STK-MED ONE Stop: 12/14/16 18:12 Last Admin: 12/14/16 18:21 Dose: 40 mg Rosuvastatin Calcium (Crestor) Confirm Administered Dose 20 mg .ROUTE .STK-MED ONE Stop: 12/11/16 19:40 Last Admin: 12/11/16 19:42 Dose: Not Given Sertraline HCl (Zoloft) Confirm Administered Dose 200 mg .ROUTE .STK-MED ONE Stop: 12/12/16 08:11 Last Admin: 12/12/16 08:15 Dose: Not Given - Exam General: Reports: Alert, Oriented HEENT: Reports: Pupils Equal, Pupils Reactive, EOMI, Mucous Membr. Moist/[place] Neck: Reports: Supple Lungs: Reports: Clear to Auscultation, Normal Respiratory Effort Cardiovascular: Reports: Regular Rate, Regular Rhythm GI/Abdominal Exam: Normal Bowel Sounds, Soft, Non-Tender, No Organomegaly, No Distention, No Abnormal Bruit, No Mass, Pelvis Stable Extremities: Normal Inspection, Normal Range of Motion, Non-Tender, No Pedal Edema, Normal Capillary Refill, Other (rash over the anterior legs have significantly improved. No more skin itching) *Q Meaningful Use (DIS) - VTE *Q VTE Criteria *Q: - Stroke *Q Stroke Criteria *Q: - AMI *Q AMI Criteria *Q:
== END 2016-12-15 11:05 | disposition home or self-care (01) | DRG 69 ==
LOC: LB.ED 13:35 → LB.MS 15:18 → UNDOADMOB 15:25 → LB.MS 17:11 → INTOOBSV 12-11 13:51 → OBSVTOIN 12-11 13:51 → UNDODISIN 12-15 11:05
PROVIDERS: ADMIT Family Medicine; ATTEND Family Medicine
DX: G45.9 Transient cerebral ischemic attack, unspecified (principal); I69.354 Hemiplegia and hemiparesis following cerebral infarction affecting left non-dominant side; E78.5 Hyperlipidemia, unspecified; L25.9 Unspecified contact dermatitis, unspecified cause; I10 Essential (primary) hypertension; E78.00 Pure hypercholesterolemia, unspecified; G47.30 Sleep apnea, unspecified; R19.7 Diarrhea, unspecified; G89.29 Other chronic pain; M54.9 Dorsalgia, unspecified; F32.9 Major depressive disorder, single episode, unspecified; Z87.891 Personal history of nicotine dependence; H91.90 Unspecified hearing loss, unspecified ear; H54.7 Unspecified visual loss; Z98.2 Presence of cerebrospinal fluid drainage device; Z88.6 Allergy status to analgesic agent; Z88.5 Allergy status to narcotic agent; Z88.2 Allergy status to sulfonamides; Z88.8 Allergy status to other drugs, medicaments and biological substances; Z79.899 Other long term (current) drug therapy; M25.569 Pain in unspecified knee; W19.XXXA Unspecified fall, initial encounter
CPT/HCPCS: 36415; 70450; 80053; 84484; 85025; 93005; 96374; 97110; 97162; 99285; A0425; A0429; A9270 ×5; G0378 ×2; J2405; 93880; 97140-GO; 97166-GO; 97530-GO; 97530-GP; 97535-GO; J7050

== ENCOUNTER 2017-01-27 13:43 | Emergency (ER) | payer MEDICARE, BC ==
[2017-01-27 14:07] VITALS: BP 145/78
[2017-01-27] MEDS ORDERED: oxyCODONE 5 MG Tab PO ONE (14:28)
--- NOTE | 2017-01-27 15:34 | EDM.PDOC ---
ED HPI GENERAL MEDICAL PROBLEM - General Chief Complaint: General Stated Complaint: fall Time Seen by Provider: 01/27/17 14:30 Source of Information: Reports: Patient, EMS, EMS Notes Reviewed, Family History Limitations: Reports: No Limitations - History of Present Illness INITIAL COMMENTS - FREE TEXT/NARRATIVE: This is a 71yo M with hemiparesis post CVA here for a recent fall. He has had multiple falls since his prior CVA and TIA. He denies any chest pain, no loc, no neck pain but does have left rib pain. He states he recalls all events leading up to and after the fall. did observe the fall and notes that he got off balance and slid part way and bumped his head on a table during his slide to the ground and landed on his left side. He did not fall directly down and was a slower progression while bumping into the side table/dresser. Patient denies any trouble breathing or difficulty with deep breaths. Onset: Sudden Location: Reports: Other (left rib pain) Quality: Reports: Ache Severity: Moderate Improves with: Reports: None Worsens with: Reports: Movement Associated Symptoms: Reports: No Other Symptoms Treatments [employer]: Reports: Cervical Collar - Related Data Allergies Allergy/AdvReac Type Severity Reaction Status Date / Time acetaminophen [From Tylenol] Allergy Hives Verified 12/10/16 13:53 codeine Allergy Hives Verified 12/10/16 13:53 ibuprofen Allergy Hives Verified 12/10/16 13:53 morphine Allergy Hives Verified 12/10/16 13:53 sulfamethoxazole Allergy Hives Verified 12/10/16 13:53 [Sulfamethoxazole] Home Meds: Home Meds Indomethacin 25 mg PO TID PRN 10/28/12 [History] Loperamide [Imodium AD] 1 mg PO BID PRN 10/28/12 [History] Losartan Potassium 25 mg PO DAILY 10/28/12 [History] Sertraline HCl 200 mg PO DAILY 10/28/12 [History] Clopidogrel Bisulfate [Plavix] 75 mg PO DAILY 12/26/15 [History] Rosuvastatin Calcium 20 mg PO QPM 12/10/16 [History] Past Medical History HEENT History: Reports: Hard of Hearing, Impaired Vision Cardiovascular History: Reports: High Cholesterol, Hypertension Other Cardiovascular History: hydrocephalus Respiratory History: Reports: Sleep Apnea, SOB, Other (See Below) Other Respiratory History: left thoracic outlet syndrome Gastrointestinal History: Reports: Chronic Diarrhea, Hemorrhoids Other Gastrointestinal History: uses anit-diarrhea med but then became constipated Genitourinary History: Reports: None Musculoskeletal History: Reports: Back Pain, Chronic, Fracture Other Musculoskeletal History: R hip, L arm and leg parasthesia and increased muscle tone from CVA Neurological History: Reports: CVA, TIA, Other (See Below) Other Neuro History: 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 Psychiatric History: Reports: Depression Endocrine/Metabolic History: Reports: None Hematologic History: Reports: None Immunologic History: Reports: None Oncologic (Cancer) History: Reports: None Dermatologic History: Reports: Other (See Below) - Infectious Disease History Infectious Disease History: Reports: Chicken Pox, Influenza, Measles, MRSA, Mumps, Pertussis (Whooping Cough) - Past Surgical History Respiratory Surgical History: Reports: Other (See Below) Other Respiratory Surgeries/Procedures: removed 1st left rib GI Surgical History: Reports: Other (See Below) Other GI Surgeries/Procedures: hemorrhoidectomy Neurological Surgical History: Reports: Laminectomy, Lumbar Spine, Other (See Below) Other Neurological Surgeries/Procedures: shunt revisions Musculoskeletal Surgical History: Reports: Shoulder Surgery, Other (See Below) Other Musculoskeletal Surgeries/Procedures:: Laminectomy Social & Family History - Family History Family Medical History: Noncontributory - Tobacco Use Smoking Status *Q: Never Smoker Second Hand Smoke Exposure: No - Caffeine Use Caffeine Use: Reports: Coffee - Recreational Drug Use Recreational Drug Use: No ED ROS GENERAL - Review of Systems Review Of Systems: ROS reveals no pertinent complaints other than HPI. ED EXAM, GENERAL - Physical Exam Exam: See Below Exam Limited By: No Limitations General Appearance: Alert, WD/WN, No Apparent Distress Eye Exam: Bilateral Eye: EOMI, PERRL Head: Atraumatic, Normocephalic Neck: Normal Inspection Respiratory/Chest: No Respiratory Distress, Lungs Clear, Normal Breath Sounds, Other (pain on palpation of the intercostal muscles - mild rib tenderness on palpation of the left ribs) Cardiovascular: Normal Peripheral Pulses, Regular Rate, Rhythm GI/Abdominal: Normal Bowel Sounds Extremities: Normal Inspection Neurological: Alert, Oriented, Other (pre-existing hemiparesis) Psychiatric: Normal Affect, Normal Mood Skin Exam: Warm, Dry, Intact Course - Vital Signs Last Recorded V/S: Last Vital Signs Temp 36.9 C 01/27/17 14:05 Pulse 55 L 01/27/17 14:05 Resp 16 01/27/17 14:05 BP 145/78 H 01/27/17 14:05 Pulse Ox 99 01/27/17 14:05 - Orders/Labs/Meds Meds: Medications Discontinued Medications Generic Name Dose Route Start Last Admin Trade Name Freq PRN Reason Stop Dose Admin Oxycodone HCl 5 mg 01/27/17 14:28 01/27/17 14:30 Oxycodone PO 01/27/17 14:29 5 mg ONETIME ONE Administration Departure - Departure Time of Disposition: 15:10 Disposition: Home, Self-Care 01 Condition: Good Clinical Impression: Intercostal muscle strain Qualifiers: Encounter type: initial encounter Qualified Code(s): S29.011A - Strain of muscle and tendon of front wall of thorax, initial encounter Fall as cause of accidental injury at home as place of occurrence Qualifiers: Encounter type: initial encounter Qualified Code(s): W19.XXXA - Unspecified fall, initial encounter; Y92.009 - Unspecified place in unspecified non- institutional (private) residence as the place of occurrence of the external cause; Y92.009 - Unspecified place in unspecified non-institutional (private) residence as the place of occurrence of the external cause - Discharge Information Instructions: Rib Contusion Forms: ED Department Discharge Care Plan Goals: Follow up as needed. Take pain medication as needed. Return if symptoms worsen. - Problem List & Annotations (1) History of cerebrovascular accident (CVA) with residual deficit SNOMED Code(s): 870799813 Code(s): I69.30 - UNSPECIFIED SEQUELAE OF CEREBRAL INFARCTION Status: Acute (2) Weakness of lower extremity SNOMED Code(s): 328701503 Code(s): M62.81 - MUSCLE WEAKNESS (GENERALIZED) Status: Acute Onset Date : ~09/30/15 (3) Fall as cause of accidental injury at home as place of occurrence SNOMED Code(s): 20281702 Code(s): W19.XXXA - UNSPECIFIED FALL, INITIAL ENCOUNTER; Y92.009 - UNSP PLACE IN UNSP NON-INSTITUT (PRIVATE) RESIDENCE PLACE Status: Acute Qualifiers: Encounter type: initial encounter Qualified Code(s): W19.XXXA - Unspecified fall, initial encounter; Y92.009 - Unspecified place in unspecified non-institutional (private) residence as the place of occurrence of the external cause; Y92.009 - Unspecified place in unspecified non-institutional ( private) residence as the place of occurrence of the external cause (4) Intercostal muscle strain SNOMED Code(s): 873066922 Code(s): S29.011A - STRAIN OF MUSCLE AND TENDON OF FRONT WALL OF THORAX, INIT Status: Acute Qualifiers: Encounter type: initial encounter Qualified Code(s): S29.011A - Strain of muscle and tendon of front wall of thorax, initial encounter - Problem List Review Problem List Initiated/Reviewed/Updated: Yes - Assessment/Plan Plan: Patient placed on oxycodone as he has not had prior side effects or pruritis with this medication. Counseled on use of benadryl as needed. Sent home with 10 tablets to take q4-6 prn. F/u in clinic as needed. Continue close monitoring of neuro and breathing. F/u as directed.
== END 2017-01-27 14:55 | disposition home or self-care (01) ==
LOC: LB.ED 13:43
DX: S29.011A Strain of muscle and tendon of front wall of thorax, initial encounter (principal); E78.00 Pure hypercholesterolemia, unspecified; I10 Essential (primary) hypertension; Z86.73 Personal history of transient ischemic attack (TIA), and cerebral infarction without residual deficits; Z88.5 Allergy status to narcotic agent; Z88.6 Allergy status to analgesic agent; Z79.899 Other long term (current) drug therapy; Z88.2 Allergy status to sulfonamides; W19.XXXA Unspecified fall, initial encounter; Y92.009 Unspecified place in unspecified non-institutional (private) residence as the place of occurrence of the external cause
CPT/HCPCS: 99284; A0425; A0429; A9270; 99283

== ENCOUNTER 2017-01-29 08:38 | Inpatient (IN) | payer MEDICARE, BC ==
--- NOTE | 2017-01-29 11:01 | EDM.PDOC ---
ED HPI GENERAL MEDICAL PROBLEM - General Chief Complaint: General Stated Complaint: Weakness and difficulty with speech Time Seen by Provider: 01/29/17 09:00 Source of Information: Reports: Family, Old Records History Limitations: Reports: Other (decreased ability to respond, does not recall place or time, weaker than before) - History of Present Illness INITIAL COMMENTS - FREE TEXT/NARRATIVE: This is a 71yo M who was noted by to have a good night with eating and movement. He has had the left rib pain from the fall. He did read last night as his usual routine but this am he was very diaphoretic and did not respond as usual to routine conversation. He did not remember his and was unable to get out of bed and weak. There were no falling episodes or seizures but she did notice that his diaphoresis was worse and he has some tremors of the left hemiparetic side. Patient was brought to ER via EMS. Patient is alert and arousable but unable to recall date, time, location or recognize persons. He did slowly state he was in the hospital. He does speak clearly when asked but does take a longer time to respond. Onset: Unknown/Unsure Duration: Hour(s): Location: Reports: Generalized Improves with: Reports: None Worsens with: Reports: None Associated Symptoms: Reports: Diaphoresis, Weakness - Related Data Allergies Allergy/AdvReac Type Severity Reaction Status Date / Time acetaminophen [From Tylenol] Allergy Hives Verified 01/29/17 09:19 codeine Allergy Hives Verified 01/29/17 09:19 ibuprofen Allergy Hives Verified 01/29/17 09:19 morphine Allergy Hives Verified 01/29/17 09:19 sulfamethoxazole Allergy Hives Verified 01/29/17 09:19 [Sulfamethoxazole] Home Meds: Home Meds Indomethacin 25 mg PO TID PRN 10/28/12 [History] Loperamide [Imodium AD] 1 mg PO BID PRN 10/28/12 [History] Losartan Potassium 25 mg PO DAILY 10/28/12 [History] Sertraline HCl 200 mg PO DAILY 10/28/12 [History] Clopidogrel Bisulfate [Plavix] 75 mg PO DAILY 12/26/15 [History] Rosuvastatin Calcium 20 mg PO QPM 12/10/16 [History] Past Medical History HEENT History: Reports: Hard of Hearing, Impaired Vision Cardiovascular History: Reports: High Cholesterol, Hypertension Other Cardiovascular History: hydrocephalus Respiratory History: Reports: Sleep Apnea, SOB, Other (See Below) Other Respiratory History: left thoracic outlet syndrome Gastrointestinal History: Reports: Chronic Diarrhea, Hemorrhoids Other Gastrointestinal History: uses anit-diarrhea med but then became constipated Genitourinary History: Reports: None, Urinary Incontinence Musculoskeletal History: Reports: Back Pain, Chronic, Fracture Other Musculoskeletal History: R hip, L arm and leg parasthesia and increased muscle tone from CVA Neurological History: Reports: CVA, TIA, Other (See Below) Other Neuro History: 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 Psychiatric History: Reports: Depression Endocrine/Metabolic History: Reports: None Hematologic History: Reports: None Immunologic History: Reports: None Oncologic (Cancer) History: Reports: None Dermatologic History: Reports: Other (See Below) - Infectious Disease History Infectious Disease History: Reports: Chicken Pox, Influenza, Measles, MRSA, Mumps, Pertussis (Whooping Cough) - Past Surgical History Respiratory Surgical History: Reports: Other (See Below) Other Respiratory Surgeries/Procedures: removed 1st left rib GI Surgical History: Reports: Other (See Below) Other GI Surgeries/Procedures: hemorrhoidectomy Neurological Surgical History: Reports: Laminectomy, Lumbar Spine, Other (See Below) Other Neurological Surgeries/Procedures: shunt revisions Musculoskeletal Surgical History: Reports: Shoulder Surgery, Other (See Below) Other Musculoskeletal Surgeries/Procedures:: Laminectomy Social & Family History - Family History Family Medical History: Noncontributory - Tobacco Use Smoking Status *Q: Former Smoker Used Tobacco, but Quit: Yes Month Tobacco Last Used: none Tobacco Use Comment: Quit smoking in 1975 Second Hand Smoke Exposure: No - Caffeine Use Caffeine Use: Reports: Coffee - Recreational Drug Use Recreational Drug Use: No ED ROS GENERAL - Review of Systems Review Of Systems: ROS reveals no pertinent complaints other than HPI. ED EXAM, GENERAL - Physical Exam Exam: See Below Exam Limited By: Other (slow response to questions, good response to commands,) General Appearance: Alert, WD/WN, No Apparent Distress Eye Exam: Bilateral Eye: EOMI (patient on first contact in ER could not or did not follow commands of ocular movements; after CT head patient reassessed and able to track finger with EOMI), PERRL (sluggish) Ears: Normal External Exam Nose: Normal Inspection Throat/Mouth: Normal Inspection Head: Atraumatic, Normocephalic Neck: Normal Inspection Respiratory/Chest: No Respiratory Distress, Lungs Clear, Normal Breath Sounds Cardiovascular: Normal Peripheral Pulses, Regular Rate, Rhythm, Systolic Murmur Peripheral Pulses: 2+: Dorsalis Pedis (L), Dorsalis Pedis (R) GI/Abdominal: Normal Bowel Sounds Back Exam: Normal Inspection Extremities: Other (contractures of left hand and let foot - chronic) Neurological: Disoriented, Slow to Respond, Sensory/Motor Deficit, Other (pre- existing motor and sensory deficit as well as worsened strength of all extremites) Psychiatric: Normal Affect Skin Exam: Warm, Intact, Diaphoretic Course - Vital Signs Last Recorded V/S: Last Vital Signs Temp 36.4 C 01/29/17 08:48 Pulse 62 01/29/17 08:48 Resp 18 01/29/17 08:48 BP 147/79 H 01/29/17 08:48 Pulse Ox 93 L 01/29/17 08:48 - Orders/Labs/Meds Orders: Active Orders 24 hr Category Date Time Status Patient Status [ADT] Urgent ADT 01/29/17 11:48 Active EKG Documentation Completion [RC] ASDIRECTED Care 01/29/17 09:17 Active Oxygen Therapy [RC] PRN Care 01/29/17 11:49 Active VTE/DVT Education [RC] Per Unit Routine Care 01/29/17 11:49 Active Vital Signs [RC] Q30M Care 01/29/17 11:48 Active Head wo Cont [CT] Stat Exams 01/29/17 09:14 Taken CBC WITH AUTO DIFF [HEME] AM Lab 01/30/17 05:11 Ordered COMPREHENSIVE METABOLIC PN,CMP [CHEM] AM Lab 01/30/17 05:11 Ordered INR,PT,PROTHROMBIN TIME [COAG] AM Lab 01/30/17 05:11 Ordered MAGNESIUM [CHEM] AM Lab 01/31/17 05:11 Ordered Clopidogrel [Plavix] Med 01/30/17 08:00 Active 75 mg PO DAILY Enoxaparin [Lovenox] Med 01/29/17 20:00 Active 100 mg SUBCUT Q12HR Lactated Ringers [Ringers, Lactated] 1,000 ml Med 01/29/17 12:15 Active IV ASDIRECTED Loperamide [Imodium AD] Med 01/29/17 12:04 Pending 1 mg PO BID PRN Losartan [Cozaar] Med 01/30/17 08:00 Active 25 mg PO DAILY atorvaSTATin [Lipitor] Med 01/29/17 12:00 Active 80 mg PO BEDTIME Medication Orders Atorvastatin Calcium (Lipitor) 80 mg PO BEDTIME RUFINO Clopidogrel Bisulfate (Plavix) 75 mg PO DAILY [facility] Enoxaparin Sodium (Lovenox) 100 mg SUBCUT Q12HR RUFINO Lactated Ringer's (Ringers, Lactated) 1,000 mls @ 100 mls/hr IV ASDIRECTED RUFINO Losartan Potassium (Cozaar) 25 mg PO DAILY RUFINO Non-Formulary Medication (Loperamide [Imodium Ad]) 1 mg PO BID PRN PRN Reason: Diarrhea Labs: Laboratory Tests 01/29/17 01/29/17 01/29/17 Range/Units 09:30 09:30 09:30 WBC 8.1 D (4.0-11.0) K/uL RBC 4.76 (4.50-6.50) M/uL Hgb 14.4 (13.0-18.0) g/dL Hct 42.5 (40.0-54.0) % MCV 89 (76-96) fL MCH 30.3 (27.0-32.0) pg MCHC 33.9 (31.0-35.0) g/dL RDW 13.9 (11.0-16.0) % Plt Count 139 L (150-400) K/uL MPV 10.4 H (6.0-10.0) fL Neut % (Auto) 78.4 H (45.0-70.0) % Lymph % (Auto) 13.3 L (20.0-40.0) % Lea % (Auto) 7.6 (3.0-10.0) % Eos % (Auto) 0.5 L (1.0-5.0) % Baso % (Auto) 0.2 (0.0-0.5) % Neut # (Auto) 6.37 (2.00-7.50) K/uL Lymph # (Auto) 1.08 L (1.50-4.00) K/uL Lea # (Auto) 0.62 (0.20-0.80) K/uL Eos # (Auto) 0.04 (0.04-0.40) K/uL Baso # (Auto) 0.02 (0.02-0.10) K/uL PT 9.9 (9.0-11.5) sec INR 1.0 (1.0-3.5) Sodium 143 (136-145) mmol/L Potassium 4.2 (3.5-5.1) mmol/L Chloride 107 (98-107) mmol/L Carbon Dioxide 24.3 (21.0-32.0) mmol/L Anion Gap 15.9 H (5.0-15.0) mmol/L BUN 10 D (8-26) mg/dL Creatinine 0.93 (0.70-1.30) mg/dL Est Cr Clr Drug Dosing TNP Estimated GFR (MDRD) > 60 (>60) MLS/MIN BUN/Creatinine Ratio 10.8 (6-25) Glucose 123 H (74-100) mg/dL Calcium 9.2 (8.5-10.1) mg/dL Total Bilirubin 0.7 D (0.0-1.0) mg/dL AST 24 (15-37) U/L ALT 24 (12-78) U/L Alkaline Phosphatase 83 (46-116) U/L Troponin I < 0.017 (0.000-0.060) ng/mL Total Protein 7.4 (6.4-8.2) g/dL Albumin 3.9 (3.4-5.0) g/dL Globulin 3.5 (2.2-4.2) g/dL Albumin/Globulin Ratio 1.1 (0.8-2.0) TSH, Ultra Sensitive 1.265 (0.358-3.740) uIU/mL Meds: Medications Generic Name Dose Route Start Last Admin Trade Name Freq PRN Reason Stop Dose Admin Atorvastatin Calcium 80 mg 01/29/17 12:00 Lipitor PO BEDTIME [facility] Clopidogrel Bisulfate 75 mg 01/30/17 08:00 Plavix PO DAILY [facility] Enoxaparin Sodium 100 mg 01/29/17 20:00 Lovenox SUBCUT Q12HR [facility] Lactated Ringer's 1,000 mls @ 100 mls/hr 01/29/17 12:15 Ringers, Lactated IV ASDIRECTED [facility] Losartan Potassium 25 mg 01/30/17 08:00 Cozaar PO DAILY RUFINO Non-Formulary Medication 1 mg 01/29/17 12:04 Loperamide [Imodium Ad] PO BID PRN Diarrhea Discontinued Medications Generic Name Dose Route Start Last Admin Trade Name Hellen PRN Reason Stop Dose Admin Aspirin 324 mg 01/29/17 11:59 Aspirin PO 01/29/17 12:00 ONETIME ONE Cyanocobalamin 1,000 mcg 01/29/17 12:08 Vitamin B12 IM 01/29/17 12:09 ONETIME ONE - Re-Assessments/Exams Free Text/Narrative Re-Assessment/Exam: 01/29/[address] head and 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 Initially he was unable to grasp and aircraft powertrain repairer with all fingers. After CT head he was able to grasp with increased strength and bend all fingers. After another 30 minutes patient was moving his right arm freely and able to have increased strength. Speech improved slightly on re-examination with delayed response time and possible expressive aphasia. Initially patient was unable to recall who I was or location. He did state he was in the hospital. After CT reassessment shows he is able to recall that I am a Doctor. Date and Time have always been an issue and that is his baseline prior to this recent event. Departure - Departure Time of Disposition: 12:30 Disposition: Admitted As Inpatient 67 Condition: Undetermined Clinical Impression: CVA, Cerebrovascular accident - Discharge Information Referrals: PCP,None [Primary Care Provider] - Forms: ED Department Discharge Care Plan Goals: Patient already anticoagulated on Plavix. We will try supportive measures and place in Critical care unit for management. Discussed stroke center transfer and would like current measure here at [place]. Informed daughter (nurse) on phone of status and plan at bedside with and patient. Discussed use of high intensity statins but has concerns due to prior issue with memory loss and side effects so we will hold and continue on regular dose Rosuvastatin. Patient to be given 325 aspirin and started on lovenox prophylaxis. F/u labs in am. Continue monitoring and vitals/neuro checks. Patient present and counseled on eating - patient able to cough on command and appears to have a protected airway. Discussed close monitoring with feeding and agrees with close f/u and cessation if any concerns of aspiration. - My Orders Last 24 Hours: My Active Orders 01/29/17 09:14 Head wo Cont [CT] Stat 01/29/17 09:17 EKG Documentation Completion [RC] ASDIRECTED 01/29/17 11:48 Patient Status [ADT] Urgent Vital Signs [RC] Q30M 01/29/17 11:49 Oxygen Therapy [RC] PRN VTE/DVT Education [RC] Per Unit Routine 01/29/17 12:00 atorvaSTATin [Lipitor] 80 mg PO BEDTIME 01/29/17 12:04 Loperamide [Imodium AD] 1 mg PO BID PRN 01/29/17 12:15 Lactated Ringers [Ringers, Lactated] 1,000 ml IV ASDIRECTED 01/29/17 20:00 Enoxaparin [Lovenox] 100 mg SUBCUT Q12HR 01/30/17 05:11 CBC WITH AUTO DIFF [HEME] AM COMPREHENSIVE METABOLIC PN,CMP [CHEM] AM INR,PT,PROTHROMBIN TIME [COAG] AM 01/30/17 08:00 Clopidogrel [Plavix] 75 mg PO DAILY Losartan [Cozaar] 25 mg PO DAILY 01/31/17 05:11 MAGNESIUM [CHEM] AM - Assessment/Plan Last 24 Hours: My Active Orders 01/29/17 09:14 Head wo Cont [CT] Stat 01/29/17 09:17 EKG Documentation Completion [RC] ASDIRECTED 01/29/17 11:48 Patient Status [ADT] Urgent Vital Signs [RC] Q30M 01/29/17 11:49 Oxygen Therapy [RC] PRN VTE/DVT Education [RC] Per Unit Routine 01/29/17 12:00 atorvaSTATin [Lipitor] 80 mg PO BEDTIME 01/29/17 12:04 Loperamide [Imodium AD] 1 mg PO BID PRN 01/29/17 12:15 Lactated Ringers [Ringers, Lactated] 1,000 ml IV ASDIRECTED 01/29/17 20:00 Enoxaparin [Lovenox] 100 mg SUBCUT Q12HR 01/30/17 05:11 CBC WITH AUTO DIFF [HEME] AM COMPREHENSIVE METABOLIC PN,CMP [CHEM] AM INR,PT,PROTHROMBIN TIME [COAG] AM 01/30/17 08:00 Clopidogrel [Plavix] 75 mg PO DAILY Losartan [Cozaar] 25 mg PO DAILY 01/31/17 05:11 MAGNESIUM [CHEM] AM
[2017-01-29] MEDS ORDERED: Aspirin 81 MG Tab.Chew PO ONE (11:59)
[2017-01-29] MEDS ORDERED: LOPERAMIDE PO PRN (12:04)
[2017-01-29] MEDS ORDERED: Cyanocobalamin (Vitamin B12) 1,000 MCG/ML SDV IM ONE (12:08)
[2017-01-29] MEDS: Lactated Ringers 1,000 ML IV SCH (15:14)
[2017-01-29] MEDS ORDERED: Aspirin 325 MG Tab.EC ONE (15:21)
[2017-01-29] MEDS ORDERED: atorvaSTATin 80 MG Tab ONE ×2 (15:22→19:49)
[2017-01-29] MEDS ORDERED: Cyanocobalamin (Vitamin B12) 1,000 MCG/ML SDV ONE (15:23)
[2017-01-29] MEDS: atorvaSTATin 80 MG Tab PO SCH ×2 (15:24→19:52)
--- NOTE | 2017-01-29 19:15 | PCM.SN ---
- Free Text/Narrative Note: Frederic states he feels fine. He does continue to exhibit expressive aphasia. He knows he is in the hospital but cannot say the 'hospital'. He has improved strength of the right arm and leg. He ate well today. We will continue current monitoring and management. Consider repeat CT in am as needed.
[2017-01-29] MEDS ORDERED: Rosuvastatin 20 MG Tab ONE (19:47)
[2017-01-29] MEDS ORDERED: Enoxaparin 100 MG/1 ML Syringe ONE (19:49)
[2017-01-29] MEDS: Enoxaparin 100 MG/1 ML Syringe SUBCUT SCH (19:51)
[2017-01-29] MEDS: Rosuvastatin 20 MG Tab PO SCH (19:52)
[2017-01-30] MEDS: Lactated Ringers 1,000 ML IV SCH ×3 (00:48→20:25)
[2017-01-30] MEDS ORDERED: Losartan 25 MG Tab ONE (07:31)
[2017-01-30] MEDS ORDERED: Clopidogrel 75 MG Tab ONE (07:31)
[2017-01-30] MEDS ORDERED: Enoxaparin 100 MG/1 ML Syringe ONE ×2 (07:32→19:21)
[2017-01-30] MEDS: Enoxaparin 100 MG/1 ML Syringe SUBCUT SCH ×2 (07:50→19:24)
[2017-01-30] MEDS: Clopidogrel 75 MG Tab PO SCH (07:53)
[2017-01-30] MEDS: Losartan 25 MG Tab PO SCH (07:53)
[2017-01-30] MEDS ORDERED: Loperamide 2 MG Cap PO PRN (08:18)
[2017-01-30] MEDS ORDERED: Pneumococcal 13-Valent Conjugate Vaccine 0.5 ML Syringe IM ONE (08:26)
[2017-01-30] MEDS ORDERED: FLU Vacc QS 2017-18 (36mos UP)/PF 60 MCG/0.5 ML Syringe IM ONE (09:15)
--- NOTE | 2017-01-30 11:22 | CT ---
DATE OF SERVICE: 01/29/17 CLINICAL DATA: weakness, unresponsive UNENHANCED BRAIN CT: Multislice acquisition through the brain without IV contrast was performed. Comparison is made to a prior exam dated 12/10/16. There is diffuse cerebral atrophy. There is a COOKER CLEANER shunt in place. It is unchanged in position from the prior study. There is marked lateral and third ventriculomegaly, unchanged from the prior study. There is an extensive area of encephalomalacia involving the right cerebral hemisphere. This does appear to be more extensive than on the prior study. It is consistent with prior infarct. No masses or mass effect. No intracranial hemorrhage. No evidence of acute infarct. The remainder of the exam is stable from the prior. [id number] [facility]
[2017-01-30] MEDS: oxyCODONE 5 MG Tab PO PRN ×2 (16:55→22:01)
--- NOTE | 2017-01-30 17:47 | PCM.PN ---
- General Info Date of Service: 01/30/17 Subjective Update: There is some improvement on status. He has improved strength of the right side but cognitively still groggy and slow responding. He does not know the place, and does not recall time but able to recall that I am his provider. Functional Status: Reports: Tolerating Diet - Review of Systems General: Reports: Weakness Pulmonary: Reports: No Symptoms Cardiovascular: Reports: No Symptoms Neurological: Reports: Pre-Existing Deficit, Weakness, Change in Speech, Gait Disturbance Psychiatric: Reports: No Symptoms - Patient Data Vitals - Most Recent: Last Vital Signs Temp 36.9 C 01/30/17 08:00 Pulse 68 01/30/17 16:00 Resp 18 01/30/17 16:00 BP 119/68 01/30/17 16:00 Pulse Ox 96 01/30/17 16:00 Weight - Most Recent: 103.873 kg Lab Results Last 24 Hours: Laboratory Results - last 24 hr 01/30/17 01/30/17 01/30/17 Range/Units 07:40 07:40 07:40 WBC 7.6 (4.0-11.0) K/uL RBC 4.44 L (4.50-6.50) M/uL Hgb 13.4 (13.0-18.0) g/dL Hct 40.0 (40.0-54.0) % MCV 90 (76-96) fL MCH 30.2 (27.0-32.0) pg MCHC 33.5 (31.0-35.0) g/dL RDW 13.9 (11.0-16.0) % Plt Count 133 L (150-400) K/uL MPV 10.8 H (6.0-10.0) fL Neut % (Auto) 68.5 (45.0-70.0) % Lymph % (Auto) 21.2 (20.0-40.0) % Kane % (Auto) 9.0 (3.0-10.0) % Eos % (Auto) 1.2 (1.0-5.0) % Baso % (Auto) 0.1 (0.0-0.5) % Neut # (Auto) 5.19 (2.00-7.50) K/uL Lymph # (Auto) 1.61 (1.50-4.00) K/uL Kane # (Auto) 0.68 (0.20-0.80) K/uL Eos # (Auto) 0.09 (0.04-0.40) K/uL Baso # (Auto) 0.01 L (0.02-0.10) K/uL PT 10.0 (9.0-11.5) sec INR 1.0 (1.0-3.5) Sodium 147 H (136-145) mmol/L Potassium 3.9 (3.5-5.1) mmol/L Chloride 111 H (98-107) mmol/L Carbon Dioxide 25.4 (21.0-32.0) mmol/L Anion Gap 14.5 (5.0-15.0) mmol/L BUN 15 D (8-26) mg/dL Creatinine 0.89 (0.70-1.30) mg/dL Est Cr Clr Drug Dosing 84.77 mL/min Estimated GFR (MDRD) > 60 (>60) MLS/MIN BUN/Creatinine Ratio 16.9 (6-25) Glucose 119 H (74-100) mg/dL Calcium 8.9 (8.5-10.1) mg/dL Total Bilirubin 0.8 (0.0-1.0) mg/dL AST 36 (15-37) U/L ALT 23 (12-78) U/L Alkaline Phosphatase 75 (46-116) U/L Total Protein 6.9 (6.4-8.2) g/dL Albumin 3.7 (3.4-5.0) g/dL Globulin 3.2 (2.2-4.2) g/dL Albumin/Globulin Ratio 1.2 (0.8-2.0) Med Orders - Current: Current Medications Atorvastatin Calcium (Lipitor) 80 mg PO BEDTIME [facility] Last Admin: 01/29/17 19:52 Dose: 80 mg Clopidogrel Bisulfate (Plavix) 75 mg PO DAILY [facility] Last Admin: 01/30/17 07:53 Dose: 75 mg Enoxaparin Sodium (Lovenox) 100 mg SUBCUT Q12HR [facility] Last Admin: 01/30/17 07:50 Dose: 100 mg Lactated Ringer's (Ringers, Lactated) 1,000 mls @ 100 mls/hr IV ASDIRECTED [facility] Last Admin: 01/30/17 10:21 Dose: 100 mls/hr Loperamide HCl (Imodium) 2 mg PO BID PRN PRN Reason: DIARRHEA Losartan Potassium (Cozaar) 25 mg PO DAILY [facility] Last Admin: 01/30/17 07:53 Dose: 25 mg Oxycodone HCl (Oxycodone) 5 mg PO Q4H PRN PRN Reason: Pain Last Admin: 01/30/17 16:55 Dose: 5 mg Rosuvastatin Calcium (Crestor) 20 mg PO QPM [facility] Last Admin: 01/29/17 19:52 Dose: 20 mg Discontinued Medications Aspirin (Aspirin) 324 mg PO ONETIME ONE Stop: 01/29/17 12:00 Last Admin: 01/29/17 15:24 Dose: 324 mg Aspirin (Ecotrin) Confirm Administered Dose 325 mg .ROUTE .STK-MED ONE Stop: 01/29/17 15:22 Last Admin: 01/29/17 15:45 Dose: Not Given Atorvastatin Calcium (Lipitor) Confirm Administered Dose 80 mg .ROUTE .STK-MED ONE Stop: 01/29/17 15:23 Last Admin: 01/29/17 15:45 Dose: Not Given Atorvastatin Calcium (Lipitor) Confirm Administered Dose 80 mg .ROUTE .STK-MED ONE Stop: 01/29/17 19:50 Last Admin: 01/29/17 21:55 Dose: Not Given Clopidogrel Bisulfate (Plavix) Confirm Administered Dose 75 mg .ROUTE .STK-MED ONE Stop: 01/30/17 07:32 Last Admin: 01/30/17 07:46 Dose: Not Given Cyanocobalamin (Vitamin B12) 1,000 mcg IM ONETIME ONE Stop: 01/29/17 12:09 Last Admin: 01/29/17 15:24 Dose: 1,000 mcg Cyanocobalamin (Vitamin B12) Confirm Administered Dose 1,000 mcg .ROUTE .STK- MED ONE Stop: 01/29/17 15:24 Last Admin: 01/29/17 15:45 Dose: Not Given Enoxaparin Sodium (Lovenox) Confirm Administered Dose 100 mg .ROUTE .STK-MED ONE Stop: 01/29/17 19:50 Last Admin: 01/29/17 21:55 Dose: Not Given Enoxaparin Sodium (Lovenox) Confirm Administered Dose 100 mg .ROUTE .STK-MED ONE Stop: 01/30/17 07:33 Last Admin: 01/30/17 07:46 Dose: Not Given Influenza Virus Vaccine (Fluzone Quad [id number]) 60 mcg IM .ONCE ONE Stop: 01/30/17 09:16 Losartan Potassium (Cozaar) Confirm Administered Dose 25 mg .ROUTE .STK-MED ONE Stop: 01/30/17 07:32 Last Admin: 01/30/17 07:46 Dose: Not Given Pneumococcal 13-Valent Conj Vacc (Prevnar 13) 0.5 ml IM .ONCE ONE Stop: 01/30/17 08:27 Rosuvastatin Calcium (Crestor) Confirm Administered Dose 20 mg .ROUTE .STK-MED ONE Stop: 01/29/17 19:48 Last Admin: 01/29/17 19:52 Dose: Not Given - Exam General: Alert, Cooperative HEENT: Pupils Equal Neck: Supple Lungs: Clear to Auscultation, Normal Respiratory Effort Cardiovascular: Regular Rate, Regular Rhythm GI/Abdominal Exam: Normal Bowel Sounds Neurological: Other (left sided hemiparesis, right side weakness, difficulty with speech) - Problem List & Annotations (1) CVA, Cerebrovascular accident SNOMED Code(s): 693212592 Code(s): I63.9 - CEREBRAL INFARCTION, UNSPECIFIED Status: Acute Priority : High Current Visit: Yes (2) History of cerebrovascular accident (CVA) with residual deficit SNOMED Code(s): 332962112 Code(s): I69.30 - UNSPECIFIED SEQUELAE OF CEREBRAL INFARCTION Status: Acute Priority: High Current Visit: Yes (3) Weakness of lower extremity SNOMED Code(s): 584922645 Code(s): M62.81 - MUSCLE WEAKNESS (GENERALIZED) Status: Acute Priority: High Current Visit: Yes Onset Date: ~09/30/15 (4) HTN (hypertension) SNOMED Code(s): 78424794 Code(s): I10 - ESSENTIAL (PRIMARY) HYPERTENSION Status: Acute Priority: Medium Current Visit: Yes Qualifiers: Hypertension type: essential hypertension Qualified Code(s): I10 - Essential (primary) hypertension (5) Depression SNOMED Code(s): 49904437 Code(s): F32.9 - MAJOR DEPRESSIVE DISORDER, SINGLE EPISODE, UNSPECIFIED Status: Chronic Priority: Medium Current Visit: Yes Qualifiers: Depression Type: other depression Qualified Code(s): F32.89 - Other specified depressive episodes (6) Hyperhidrosis SNOMED Code(s): 741516155 Code(s): L74.519 - PRIMARY FOCAL HYPERHIDROSIS, UNSPECIFIED Status: Chronic Priority: Medium Current Visit: Yes (7) Chronic back pain SNOMED Code(s): 561697582 Code(s): M54.9 - DORSALGIA, UNSPECIFIED; G89.29 - OTHER CHRONIC PAIN Status : Acute Current Visit: Yes Qualifiers: Back pain location: low back pain Back pain laterality: bilateral Sciatica presence: unspecified whether sciatica present Qualified Code(s): M54.5 - Low back pain; G89.29 - Other chronic pain; G89.29 - Other chronic pain - Problem List Review Problem List Initiated/Reviewed/Updated: Yes - My Orders Last 24 Hours: My Active Orders 01/29/17 20:00 Enoxaparin [Lovenox] 100 mg SUBCUT Q12HR Rosuvastatin [Crestor] 20 mg PO QPM 01/30/17 08:00 Clopidogrel [Plavix] 75 mg PO DAILY Losartan [Cozaar] 25 mg PO DAILY 01/30/17 08:18 Loperamide [Imodium] 2 mg PO BID PRN 01/30/17 08:22 CULTURE MRSA SURVEY [RM] Routine 01/30/17 16:10 oxyCODONE 5 mg PO Q4H PRN 01/31/17 05:11 MAGNESIUM [CHEM] AM - Plan Plan:: Patient will continue on current management and meds; also lovenox for DVT prophylaxis. PT/OT to be ordered. F/u in am and recheck labs.
[2017-01-30] MEDS ORDERED: atorvaSTATin 80 MG Tab ONE (19:12)
[2017-01-30] MEDS: atorvaSTATin 80 MG Tab PO SCH (19:18)
[2017-01-30] MEDS: Rosuvastatin 20 MG Tab PO SCH (19:23)
[2017-01-30] MEDS ORDERED: Rosuvastatin 20 MG Tab ONE (19:23)
[2017-01-31] MEDS: Lactated Ringers 1,000 ML IV SCH (04:58)
[2017-01-31] MEDS ORDERED: Clopidogrel 75 MG Tab ONE (07:36)
[2017-01-31] MEDS ORDERED: Enoxaparin 100 MG/1 ML Syringe ONE ×2 (07:37→20:40)
[2017-01-31] MEDS ORDERED: Losartan 25 MG Tab ONE (07:37)
[2017-01-31] MEDS: Enoxaparin 100 MG/1 ML Syringe SUBCUT SCH ×2 (07:46→21:17)
[2017-01-31] MEDS: Losartan 25 MG Tab PO SCH (07:48)
[2017-01-31] MEDS: Clopidogrel 75 MG Tab PO SCH (07:48)
--- NOTE | 2017-01-31 11:58 | PCM.PN ---
- General Info Date of Service: 01/31/17 Subjective Update: This is a 71yo M with recent CVA. He has improved significantly from the initial incident. There remains some weakness and decreased response time to speech and aphasia but does appear to be over 60% recovered. Functional Status: Reports: Tolerating Diet, Other (sitting in chair) - Review of Systems General: Reports: Weakness HEENT: Reports: No Symptoms Pulmonary: Reports: No Symptoms Cardiovascular: Reports: No Symptoms Gastrointestinal: Reports: No Symptoms Musculoskeletal: Reports: Back Pain Skin: Reports: No Symptoms Neurological: Reports: Pre-Existing Deficit - Patient Data Vitals - Most Recent: Last Vital Signs Temp 36.9 C 01/31/17 07:20 Pulse 65 01/31/17 07:20 Resp 18 01/31/17 07:20 BP 118/82 01/31/17 07:20 Pulse Ox 94 L 01/31/17 07:20 Weight - Most Recent: 103.873 kg I&O - Last 24 Hours: Intake & Output 01/30/17 01/31/17 01/31/17 22:59 06:59 14:59 Intake Total 1220 1200 Balance 1220 1200 Lab Results Last 24 Hours: Laboratory Results - last 24 hr 01/31/17 01/31/17 01/31/17 Range/Units 07:30 09:00 09:00 WBC 7.0 (4.0-11.0) K/uL RBC 4.18 L (4.50-6.50) M/uL Hgb 12.6 L (13.0-18.0) g/dL Hct 37.8 L (40.0-54.0) % MCV 90 (76-96) fL MCH 30.1 (27.0-32.0) pg MCHC 33.3 (31.0-35.0) g/dL RDW 13.6 (11.0-16.0) % Plt Count 117 L (150-400) K/uL MPV 10.3 H (6.0-10.0) fL Neut % (Auto) 68.8 (45.0-70.0) % Lymph % (Auto) 19.5 L (20.0-40.0) % [place] % (Auto) 8.8 (3.0-10.0) % Eos % (Auto) 2.6 (1.0-5.0) % Baso % (Auto) 0.3 (0.0-0.5) % Neut # (Auto) 4.80 (2.00-7.50) K/uL Lymph # (Auto) 1.36 L (1.50-4.00) K/uL [place] # (Auto) 0.61 (0.20-0.80) K/uL Eos # (Auto) 0.18 (0.04-0.40) K/uL Baso # (Auto) 0.02 (0.02-0.10) K/uL Sodium 141 (136-145) mmol/L Potassium 3.6 (3.5-5.1) mmol/L Chloride 105 (98-107) mmol/L Carbon Dioxide 24.1 (21.0-32.0) mmol/L Anion Gap 15.5 H (5.0-15.0) mmol/L BUN 12 (8-26) mg/dL Creatinine 0.89 (0.70-1.30) mg/dL Est Cr Clr Drug Dosing 84.77 mL/min Estimated GFR (MDRD) > 60 (>60) MLS/MIN BUN/Creatinine Ratio 13.5 (6-25) Glucose 150 H (74-100) mg/dL Calcium 8.4 L (8.5-10.1) mg/dL Magnesium 2.1 (1.8-2.4) mg/dL Total Bilirubin 0.9 (0.0-1.0) mg/dL AST 42 H (15-37) U/L ALT 24 (12-78) U/L Alkaline Phosphatase 75 (46-116) U/L Total Protein 6.3 L (6.4-8.2) g/dL Albumin 3.4 (3.4-5.0) g/dL Globulin 2.9 (2.2-4.2) g/dL Albumin/Globulin Ratio 1.2 (0.8-2.0) Med Orders - Current: Current Medications Atorvastatin Calcium (Lipitor) 80 mg PO BEDTIME [facility] Last Admin: 01/30/17 19:18 Dose: 80 mg Clopidogrel Bisulfate (Plavix) 75 mg PO DAILY [facility] Last Admin: 01/31/17 07:48 Dose: 75 mg Enoxaparin Sodium (Lovenox) 100 mg SUBCUT Q12HR [facility] Last Admin: 01/31/17 07:46 Dose: 100 mg Lactated Ringer's (Ringers, Lactated) 1,000 mls @ 100 mls/hr IV ASDIRECTED [facility] Last Admin: 01/31/17 04:58 Dose: 100 mls/hr Loperamide HCl (Imodium) 2 mg PO BID PRN PRN Reason: DIARRHEA Losartan Potassium (Cozaar) 25 mg PO DAILY [facility] Last Admin: 01/31/17 07:48 Dose: 25 mg Oxycodone HCl (Oxycodone) 5 mg PO Q4H PRN PRN Reason: Pain Last Admin: 01/30/17 22:01 Dose: 5 mg Rosuvastatin Calcium (Crestor) 20 mg PO QPM [facility] Last Admin: 01/30/17 19:23 Dose: 20 mg Discontinued Medications Aspirin (Aspirin) 324 mg PO ONETIME ONE Stop: 01/29/17 12:00 Last Admin: 01/29/17 15:24 Dose: 324 mg Aspirin (Ecotrin) Confirm Administered Dose 325 mg .ROUTE .STK-MED ONE Stop: 01/29/17 15:22 Last Admin: 01/29/17 15:45 Dose: Not Given Atorvastatin Calcium (Lipitor) Confirm Administered Dose 80 mg .ROUTE .STK-MED ONE Stop: 01/29/17 15:23 Last Admin: 01/29/17 15:45 Dose: Not Given Atorvastatin Calcium (Lipitor) Confirm Administered Dose 80 mg .ROUTE .STK-MED ONE Stop: 01/29/17 19:50 Last Admin: 01/29/17 21:55 Dose: Not Given Atorvastatin Calcium (Lipitor) Confirm Administered Dose 80 mg .ROUTE .STK-MED ONE Stop: 01/30/17 19:13 Last Admin: 01/30/17 19:28 Dose: Not Given Clopidogrel Bisulfate (Plavix) Confirm Administered Dose 75 mg .ROUTE .STK-MED ONE Stop: 01/30/17 07:32 Last Admin: 01/30/17 07:46 Dose: Not Given Clopidogrel Bisulfate (Plavix) Confirm Administered Dose 75 mg .ROUTE .STK-MED ONE Stop: 01/31/17 07:37 Last Admin: 01/31/17 07:45 Dose: Not Given Cyanocobalamin (Vitamin B12) 1,000 mcg IM ONETIME ONE Stop: 01/29/17 12:09 Last Admin: 01/29/17 15:24 Dose: 1,000 mcg Cyanocobalamin (Vitamin B12) Confirm Administered Dose 1,000 mcg .ROUTE .STK- MED ONE Stop: 01/29/17 15:24 Last Admin: 01/29/17 15:45 Dose: Not Given Enoxaparin Sodium (Lovenox) Confirm Administered Dose 100 mg .ROUTE .STK-MED ONE Stop: 01/29/17 19:50 Last Admin: 01/29/17 21:55 Dose: Not Given Enoxaparin Sodium (Lovenox) Confirm Administered Dose 100 mg .ROUTE .STK-MED ONE Stop: 01/30/17 07:33 Last Admin: 01/30/17 07:46 Dose: Not Given Enoxaparin Sodium (Lovenox) Confirm Administered Dose 100 mg .ROUTE .STK-MED ONE Stop: 01/30/17 19:22 Last Admin: 01/30/17 19:28 Dose: Not Given Enoxaparin Sodium (Lovenox) Confirm Administered Dose 100 mg .ROUTE .STK-MED ONE Stop: 01/31/17 07:38 Last Admin: 01/31/17 07:45 Dose: Not Given Influenza Virus Vaccine (Fluzone Quad 2391-3517) 60 mcg IM .ONCE ONE Stop: 01/30/17 09:16 Last Admin: 01/31/17 11:41 Dose: Not Given Losartan Potassium (Cozaar) Confirm Administered Dose 25 mg .ROUTE .STK-MED ONE Stop: 01/30/17 07:32 Last Admin: 01/30/17 07:46 Dose: Not Given Losartan Potassium (Cozaar) Confirm Administered Dose 25 mg .ROUTE .STK-MED ONE Stop: 01/31/17 07:38 Last Admin: 01/31/17 07:45 Dose: Not Given Pneumococcal 13-Valent Conj Vacc (Prevnar 13) 0.5 ml IM .ONCE ONE Stop: 01/30/17 08:27 Rosuvastatin Calcium (Crestor) Confirm Administered Dose 20 mg .ROUTE .STK-MED ONE Stop: 01/29/17 19:48 Last Admin: 01/29/17 19:52 Dose: Not Given Rosuvastatin Calcium (Crestor) Confirm Administered Dose 20 mg .ROUTE .STK-MED ONE Stop: 01/30/17 19:24 Last Admin: 01/30/17 19:28 Dose: Not Given - Exam General: Alert, Cooperative, Other (improved orientation - able to recall me as provider, able to recall location and house location even after recent move) Neck: Supple Lungs: Clear to Auscultation, Normal Respiratory Effort Cardiovascular: Regular Rate, Regular Rhythm GI/Abdominal Exam: Normal Bowel Sounds Back Exam: Normal Inspection Extremities: Normal Inspection - Problem List & Annotations (1) CVA, Cerebrovascular accident SNOMED Code(s): 798895597 Code(s): I63.9 - CEREBRAL INFARCTION, UNSPECIFIED Status: Acute Priority : High Current Visit: Yes (2) History of cerebrovascular accident (CVA) with residual deficit SNOMED Code(s): 425670817 Code(s): I69.30 - UNSPECIFIED SEQUELAE OF CEREBRAL INFARCTION Status: Acute Priority: High Current Visit: Yes (3) Weakness of lower extremity SNOMED Code(s): 565834343 Code(s): M62.81 - MUSCLE WEAKNESS (GENERALIZED) Status: Acute Priority: High Current Visit: Yes Onset Date: ~09/30/15 (4) HTN (hypertension) SNOMED Code(s): 88658752 Code(s): I10 - ESSENTIAL (PRIMARY) HYPERTENSION Status: Acute Priority: Medium Current Visit: Yes Qualifiers: Hypertension type: essential hypertension Qualified Code(s): I10 - Essential (primary) hypertension (5) Depression SNOMED Code(s): 44495142 Code(s): F32.9 - MAJOR DEPRESSIVE DISORDER, SINGLE EPISODE, UNSPECIFIED Status: Chronic Priority: Medium Current Visit: Yes Qualifiers: Depression Type: other depression Qualified Code(s): F32.89 - Other specified depressive episodes (6) Hyperhidrosis SNOMED Code(s): 661866888 Code(s): L74.519 - PRIMARY FOCAL HYPERHIDROSIS, UNSPECIFIED Status: Chronic Priority: Medium Current Visit: Yes (7) Chronic back pain SNOMED Code(s): 799795702 Code(s): M54.9 - DORSALGIA, UNSPECIFIED; G89.29 - OTHER CHRONIC PAIN Status : Acute Current Visit: Yes Qualifiers: Back pain location: low back pain Back pain laterality: bilateral Sciatica presence: unspecified whether sciatica present Qualified Code(s): M54.5 - Low back pain; G89.29 - Other chronic pain; G89.29 - Other chronic pain - Problem List Review Problem List Initiated/Reviewed/Updated: Yes - My Orders Last 24 Hours: My Active Orders 01/30/17 16:10 oxyCODONE 5 mg PO Q4H PRN 01/30/17 20:00 CULTURE MRSA SURVEY [RM] Routine 01/31/17 10:18 OT Evaluation and Treatment [CONS] Routine PT Evaluation and Treatment [CONS] Routine - Plan Plan:: Patient will continue on current management and meds; also lovenox for DVT prophylaxis. PT/OT to be ordered. F/u in am and recheck labs. F/u PT/OT in am. Lab f/u. Consider swing bed admit tomorrow.
[2017-01-31] MEDS: oxyCODONE 5 MG Tab PO PRN ×2 (13:04→21:10)
[2017-01-31] MEDS ORDERED: Rosuvastatin 20 MG Tab ONE (20:40)
[2017-01-31] MEDS: Rosuvastatin 20 MG Tab PO SCH (21:11)
[2017-01-31] MEDS: atorvaSTATin 80 MG Tab PO SCH (21:12)
[2017-02-01] MEDS: oxyCODONE 5 MG Tab PO PRN (03:41)
[2017-02-01] MEDS ORDERED: Indomethacin 25 MG Cap PO PRN (05:37)
[2017-02-01 07:31] VITALS: BP 127/77
[2017-02-01] MEDS ORDERED: Sertraline 100 MG Tab PO SCH (08:00)
[2017-02-01] MEDS ORDERED: Enoxaparin 100 MG/1 ML Syringe ONE (08:03)
[2017-02-01] MEDS ORDERED: Clopidogrel 75 MG Tab ONE (08:03)
[2017-02-01] MEDS ORDERED: Losartan 25 MG Tab ONE (08:03)
[2017-02-01] MEDS: Enoxaparin 100 MG/1 ML Syringe SUBCUT SCH (08:13)
[2017-02-01] MEDS: Clopidogrel 75 MG Tab PO SCH (08:14)
[2017-02-01] MEDS: Losartan 25 MG Tab PO SCH (08:14)
--- NOTE | 2017-02-01 08:33 | PCM.DCSUM1 ---
Discharge Summary - Hospital Course Brief History: This is a 71yo M who exhibited signs of right sided weakness and expressive aphasia with prior history of multiple CVA and post-CVA left hemiparesis. He was admitted for monitoring and management and has improved significantly over the past 3 days. He continues to be weaker than his baseline and have some mild aphasia. - Discharge Data Discharge Date: 02/01/17 Discharge Disposition: DC/Tfer W/I Hosp To Swing 61 Condition: Stable - Discharge Diagnosis/Problem(s) (1) CVA, Cerebrovascular accident SNOMED Code(s): 776930311 ICD Code: I63.9 - CEREBRAL INFARCTION, UNSPECIFIED Status: Acute Priority : High Current Visit: Yes (2) History of cerebrovascular accident (CVA) with residual deficit SNOMED Code(s): 541241650 ICD Code: I69.30 - UNSPECIFIED SEQUELAE OF CEREBRAL INFARCTION Status: Acute Priority: High Current Visit: Yes (3) Weakness of lower extremity SNOMED Code(s): 165091019 ICD Code: M62.81 - MUSCLE WEAKNESS (GENERALIZED) Status: Acute Priority: High Current Visit: Yes Onset Date: ~09/30/15 (4) HTN (hypertension) SNOMED Code(s): 31545939 ICD Code: I10 - ESSENTIAL (PRIMARY) HYPERTENSION Status: Acute Priority: Medium Current Visit: Yes Qualifiers: Hypertension type: essential hypertension Qualified Code(s): I10 - Essential (primary) hypertension (5) Depression SNOMED Code(s): 25358549 ICD Code: F32.9 - MAJOR DEPRESSIVE DISORDER, SINGLE EPISODE, UNSPECIFIED Status: Chronic Priority: Medium Current Visit: Yes Qualifiers: Depression Type: other depression Qualified Code(s): F32.89 - Other specified depressive episodes (6) Hyperhidrosis SNOMED Code(s): 784053134 ICD Code: L74.519 - PRIMARY FOCAL HYPERHIDROSIS, UNSPECIFIED Status: Chronic Priority: Medium Current Visit: Yes (7) Chronic back pain SNOMED Code(s): 920745959 ICD Code: M54.9 - DORSALGIA, UNSPECIFIED; G89.29 - OTHER CHRONIC PAIN Status: Acute Current Visit: Yes Qualifiers: Back pain location: low back pain Back pain laterality: bilateral Sciatica presence: unspecified whether sciatica present Qualified Code(s): M54.5 - Low back pain; G89.29 - Other chronic pain; G89.29 - Other chronic pain - Patient Summary/Data Consults: Consultations 01/31/17 10:18 OT Evaluation and Treatment [CONS] Routine Please Evaluate and Treat. OT Reason for Consult: ADL's This query below is only for informational purposes and is not editable. Admission Diagnosis/Problem: CVA, Cerebrovascular accident PT Evaluation and Treatment [CONS] Routine Please Evaluate and Treat. PT Reason for Consult: Ambulation This query below is only for informational purposes and is not editable. Admission Diagnosis/Problem: CVA, Cerebrovascular accident - Patient Instructions Diet: Usual Diet as Tolerated Activity: As Tolerated Driving: Do Not Drive Showering/Bathing: May Shower (with assistance) - Discharge Plan Home Medications: Home Meds Indomethacin 25 mg PO TID PRN 10/28/12 [History] Loperamide [Imodium AD] 1 mg PO BID PRN 10/28/12 [History] Losartan Potassium 25 mg PO DAILY 10/28/12 [History] Sertraline HCl 200 mg PO DAILY 10/28/12 [History] Clopidogrel Bisulfate [Plavix] 75 mg PO DAILY 12/26/15 [History] Rosuvastatin Calcium 20 mg PO QPM 12/10/16 [History] Forms: ED Department Discharge Referrals: PCP,None [Primary Care Provider] - - Discharge Summary/Plan Comment DC Time >30 min.: Yes Discharge Summary/Plan Comment: Patient discharged to Swing bed for rehabilitation and PT/OT therapy. We will continue conservative management and monitoring. - Patient Data Vitals - Most Recent: Last Vital Signs Temp 36.9 C 02/01/17 07:28 Pulse 62 02/01/17 07:28 Resp 17 02/01/17 07:28 BP 127/77 02/01/17 07:28 Pulse Ox 62 L 02/01/17 07:28 Weight - Most Recent: 103.873 kg I&O - Last 24 hours: Intake & Output 01/31/17 02/01/17 02/01/17 22:59 06:59 14:59 Intake Total 100 260 Balance 100 260 Lab Results - Last 24 hrs: Laboratory Results - last 24 hr 01/31/17 01/31/17 02/01/17 Range/Units 09:00 09:00 07:20 WBC 7.0 6.6 (4.0-11.0) K/uL RBC 4.18 L 3.96 L (4.50-6.50) M/uL Hgb 12.6 L 11.9 L (13.0-18.0) g/dL Hct 37.8 L 35.6 L (40.0-54.0) % MCV 90 90 (76-96) fL MCH 30.1 30.1 (27.0-32.0) pg MCHC 33.3 33.4 (31.0-35.0) g/dL RDW 13.6 13.4 (11.0-16.0) % Plt Count 117 L 107 L (150-400) K/uL MPV 10.3 H 10.7 H (6.0-10.0) fL Neut % (Auto) 68.8 70.0 (45.0-70.0) % Lymph % (Auto) 19.5 L 18.4 L (20.0-40.0) % [place] % (Auto) 8.8 10.5 H (3.0-10.0) % Eos % (Auto) 2.6 0.9 L (1.0-5.0) % Baso % (Auto) 0.3 0.2 (0.0-0.5) % Neut # (Auto) 4.80 4.60 (2.00-7.50) K/uL Lymph # (Auto) 1.36 L 1.21 L (1.50-4.00) K/uL [place] # (Auto) 0.61 0.69 (0.20-0.80) K/uL Eos # (Auto) 0.18 0.06 (0.04-0.40) K/uL Baso # (Auto) 0.02 0.01 L (0.02-0.10) K/uL Sodium 141 (136-145) mmol/L Potassium 3.6 (3.5-5.1) mmol/L Chloride 105 (98-107) mmol/L Carbon Dioxide 24.1 (21.0-32.0) mmol/L Anion Gap 15.5 H (5.0-15.0) mmol/L BUN 12 (8-26) mg/dL Creatinine 0.89 (0.70-1.30) mg/dL Est Cr Clr Drug Dosing 84.77 mL/min Estimated GFR (MDRD) > 60 (>60) MLS/MIN BUN/Creatinine Ratio 13.5 (6-25) Glucose 150 H (74-100) mg/dL Calcium 8.4 L (8.5-10.1) mg/dL Total Bilirubin 0.9 (0.0-1.0) mg/dL AST 42 H (15-37) U/L ALT 24 (12-78) U/L Alkaline Phosphatase 75 (46-116) U/L Total Protein 6.3 L (6.4-8.2) g/dL Albumin 3.4 (3.4-5.0) g/dL Globulin 2.9 (2.2-4.2) g/dL Albumin/Globulin Ratio 1.2 (0.8-2.0) 02/01/17 Range/Units 07:20 WBC (4.0-11.0) K/uL RBC (4.50-6.50) M/uL Hgb (13.0-18.0) g/dL Hct (40.0-54.0) % MCV (76-96) fL MCH (27.0-32.0) pg MCHC (31.0-35.0) g/dL RDW (11.0-16.0) % Plt Count (150-400) K/uL MPV (6.0-10.0) fL Neut % (Auto) (45.0-70.0) % Lymph % (Auto) (20.0-40.0) % [place] % (Auto) (3.0-10.0) % Eos % (Auto) (1.0-5.0) % Baso % (Auto) (0.0-0.5) % Neut # (Auto) (2.00-7.50) K/uL Lymph # (Auto) (1.50-4.00) K/uL [place] # (Auto) (0.20-0.80) K/uL Eos # (Auto) (0.04-0.40) K/uL Baso # (Auto) (0.02-0.10) K/uL Sodium 139 (136-145) mmol/L Potassium 3.4 L (3.5-5.1) mmol/L Chloride 104 (98-107) mmol/L Carbon Dioxide 27.1 (21.0-32.0) mmol/L Anion Gap 11.3 (5.0-15.0) mmol/L BUN 10 (8-26) mg/dL Creatinine 0.79 (0.70-1.30) mg/dL Est Cr Clr Drug Dosing 95.50 mL/min Estimated GFR (MDRD) > 60 (>60) MLS/MIN BUN/Creatinine Ratio 12.7 (6-25) Glucose 119 H (74-100) mg/dL Calcium 8.4 L (8.5-10.1) mg/dL Total Bilirubin (0.0-1.0) mg/dL AST (15-37) U/L ALT (12-78) U/L Alkaline Phosphatase (46-116) U/L Total Protein (6.4-8.2) g/dL Albumin (3.4-5.0) g/dL Globulin (2.2-4.2) g/dL Albumin/Globulin Ratio (0.8-2.0) Med Orders - Current: Current Medications Clopidogrel Bisulfate (Plavix) 75 mg PO DAILY [facility] Last Admin: 02/01/17 08:14 Dose: 75 mg Enoxaparin Sodium (Lovenox) 100 mg SUBCUT Q12HR [facility] Last Admin: 02/01/17 08:13 Dose: 100 mg Indomethacin (Indocin) 25 mg PO TID PRN PRN Reason: Pain Last Admin: 02/01/17 05:50 Dose: 25 mg Loperamide HCl (Imodium) 2 mg PO BID PRN PRN Reason: DIARRHEA Losartan Potassium (Cozaar) 25 mg PO DAILY [facility] Last Admin: 02/01/17 08:14 Dose: 25 mg Oxycodone HCl (Oxycodone) 5 mg PO Q4H PRN PRN Reason: Pain Last Admin: 02/01/17 03:41 Dose: 5 mg Rosuvastatin Calcium (Crestor) 20 mg PO QPM [facility] Last Admin: 01/31/17 21:11 Dose: Not Given Sertraline HCl (Zoloft) 200 mg PO DAILY [facility] Last Admin: 02/01/17 08:14 Dose: 200 mg Discontinued Medications Aspirin (Aspirin) 324 mg PO ONETIME ONE Stop: 01/29/17 12:00 Last Admin: 01/29/17 15:24 Dose: 324 mg Aspirin (Ecotrin) Confirm Administered Dose 325 mg .ROUTE .STK-MED ONE Stop: 01/29/17 15:22 Last Admin: 01/29/17 15:45 Dose: Not Given Atorvastatin Calcium (Lipitor) 80 mg PO BEDTIME [facility] Last Admin: 01/31/17 21:12 Dose: Not Given Atorvastatin Calcium (Lipitor) Confirm Administered Dose 80 mg .ROUTE .STK-MED ONE Stop: 01/29/17 15:23 Last Admin: 01/29/17 15:45 Dose: Not Given Atorvastatin Calcium (Lipitor) Confirm Administered Dose 80 mg .ROUTE .STK-MED ONE Stop: 01/29/17 19:50 Last Admin: 01/29/17 21:55 Dose: Not Given Atorvastatin Calcium (Lipitor) Confirm Administered Dose 80 mg .ROUTE .STK-MED ONE Stop: 01/30/17 19:13 Last Admin: 01/30/17 19:28 Dose: Not Given Clopidogrel Bisulfate (Plavix) Confirm Administered Dose 75 mg .ROUTE .STK-MED ONE Stop: 01/30/17 07:32 Last Admin: 01/30/17 07:46 Dose: Not Given Clopidogrel Bisulfate (Plavix) Confirm Administered Dose 75 mg .ROUTE .STK-MED ONE Stop: 01/31/17 07:37 Last Admin: 01/31/17 07:45 Dose: Not Given Clopidogrel Bisulfate (Plavix) Confirm Administered Dose 75 mg .ROUTE .STK-MED ONE Stop: 02/01/17 08:04 Cyanocobalamin (Vitamin B12) 1,000 mcg IM ONETIME ONE Stop: 01/29/17 12:09 Last Admin: 01/29/17 15:24 Dose: 1,000 mcg Cyanocobalamin (Vitamin B12) Confirm Administered Dose 1,000 mcg .ROUTE .STK- MED ONE Stop: 01/29/17 15:24 Last Admin: 01/29/17 15:45 Dose: Not Given Enoxaparin Sodium (Lovenox) Confirm Administered Dose 100 mg .ROUTE .STK-MED ONE Stop: 01/29/17 19:50 Last Admin: 01/29/17 21:55 Dose: Not Given Enoxaparin Sodium (Lovenox) Confirm Administered Dose 100 mg .ROUTE .STK-MED ONE Stop: 01/30/17 07:33 Last Admin: 01/30/17 07:46 Dose: Not Given Enoxaparin Sodium (Lovenox) Confirm Administered Dose 100 mg .ROUTE .STK-MED ONE Stop: 01/30/17 19:22 Last Admin: 01/30/17 19:28 Dose: Not Given Enoxaparin Sodium (Lovenox) Confirm Administered Dose 100 mg .ROUTE .STK-MED ONE Stop: 01/31/17 07:38 Last Admin: 01/31/17 07:45 Dose: Not Given Enoxaparin Sodium (Lovenox) Confirm Administered Dose 100 mg .ROUTE .STK-MED ONE Stop: 01/31/17 20:41 Last Admin: 01/31/17 21:08 Dose: 100 mg Enoxaparin Sodium (Lovenox) Confirm Administered Dose 100 mg .ROUTE .STK-MED ONE Stop: 02/01/17 08:04 Lactated Ringer's (Ringers, Lactated) 1,000 mls @ 100 mls/hr IV ASDIRECTED [facility] Last Admin: 01/31/17 04:58 Dose: 100 mls/hr Influenza Virus Vaccine (Fluzone Quad 2158-9191) 60 mcg IM .ONCE ONE Stop: 01/30/17 09:16 Last Admin: 01/31/17 11:41 Dose: Not Given Losartan Potassium (Cozaar) Confirm Administered Dose 25 mg .ROUTE .STK-MED ONE Stop: 01/30/17 07:32 Last Admin: 01/30/17 07:46 Dose: Not Given Losartan Potassium (Cozaar) Confirm Administered Dose 25 mg .ROUTE .STK-MED ONE Stop: 01/31/17 07:38 Last Admin: 01/31/17 07:45 Dose: Not Given Losartan Potassium (Cozaar) Confirm Administered Dose 25 mg .ROUTE .STK-MED ONE Stop: 02/01/17 08:04 Pneumococcal 13-Valent Conj Vacc (Prevnar 13) 0.5 ml IM .ONCE ONE Stop: 01/30/17 08:27 Rosuvastatin Calcium (Crestor) Confirm Administered Dose 20 mg .ROUTE .STK-MED ONE Stop: 01/29/17 19:48 Last Admin: 01/29/17 19:52 Dose: Not Given Rosuvastatin Calcium (Crestor) Confirm Administered Dose 20 mg .ROUTE .STK-MED ONE Stop: 01/30/17 19:24 Last Admin: 01/30/17 19:28 Dose: Not Given Rosuvastatin Calcium (Crestor) Confirm Administered Dose 20 mg .ROUTE .[facility]-MED ONE Stop: 01/31/17 20:41 Last Admin: 01/31/17 21:11 Dose: 20 mg *Q Meaningful Use (DIS) - VTE *Q VTE Criteria *Q: - Stroke *Q Stroke Criteria *Q: - AMI *Q AMI Criteria *Q:
--- NOTE | 2017-02-01 09:25 | CR ---
DATE OF SERVICE: 01/31/17 CLINICAL DATA: Heel Pain LEFT FOOT: No priors. There is diffuse osteopenia. There is marked dorsiflexion of the MP joint of the 1st toe. There is hammer toe deformity of the 2nd through 4th toes. There are mild osteoarthritic changes involving multiple joints. There is a posterior calcaneal spur. No acute fracture or dislocation. No focal lytic or blastic bone lesions. There are vascular calcifications in the soft tissues. [id number] [facility]
== END 2017-02-01 08:00 | disposition swing bed (61) | DRG 65 ==
LOC: LB.ED 08:38 → LB.MS 11:48 → LB.ED 12:05 → LB.MS 12:50 → UNDOADMIN 12:50
PROVIDERS: ADMIT Family Medicine; ATTEND Family Medicine
DX: I63.9 Cerebral infarction, unspecified (principal); G81.91 Hemiplegia, unspecified affecting right dominant side; I69.954 Hemiplegia and hemiparesis following unspecified cerebrovascular disease affecting left non-dominant side; R47.01 Aphasia; I10 Essential (primary) hypertension; Z87.891 Personal history of nicotine dependence; M62.81 Muscle weakness (generalized); R47.9 Unspecified speech disturbances; L74.519 Primary focal hyperhidrosis, unspecified; Z66 Do not resuscitate; M79.672 Pain in left foot; Z86.14 Personal history of Methicillin resistant Staphylococcus aureus infection; E78.00 Pure hypercholesterolemia, unspecified; F32.9 Major depressive disorder, single episode, unspecified; M54.5 Low back pain; G89.29 Other chronic pain; H54.7 Unspecified visual loss; H91.90 Unspecified hearing loss, unspecified ear; Z79.01 Long term (current) use of anticoagulants; Z88.6 Allergy status to analgesic agent; Z88.5 Allergy status to narcotic agent; Z88.8 Allergy status to other drugs, medicaments and biological substances
CPT/HCPCS: 36415; 70450; 80053; 84443; 84484; 85025; 85610; 93005; 99285; A0425; A0429; 73630-LT; 80048; 83735; 97166-GO; A9270-GY; J1650; J3420; J7120

== ENCOUNTER 2017-02-01 08:34 | Inpatient (IN) | payer MEDICARE, BC ==
[~2017-02-01 08:34] MED LIST: Tuberculin, PPD 5 Units/0.1 ML 1 ML MDV IDERM ONE
--- NOTE | 2017-02-01 08:42 | PCM.HP ---
H&P History of Present Illness - General Date of Service: 02/01/17 Admit Problem/Dx: Admission Diagnosis/Problem Admission Diagnosis/Problem Weakness Source of Information: Patient, Family, Old Records History Limitations: Reports: No Limitations, Other (poor historian) - History of Present Illness Initial Comments - Free Text/Narative: This is a 71yo M with prior history of multiple CVA and left hemiparesis with new onset stroke symptoms of the right side and expressive aphasia who is recovering and will require rehabilitation for ambulation and ADLs. Onset of Symptoms: Reports: Sudden Duration of Symptoms: Reports: Day(s):, Improving Location: Reports: Upper Extremity, Right, Lower Extremity, Right Severity: Moderate Improves with: Reports: None Worsens with: Reports: None Associated Symptoms: Reports: Confusion - Related Data Allergies/Adverse Reactions: Allergies Allergy/AdvReac Type Severity Reaction Status Date / Time acetaminophen [From Tylenol] Allergy Hives Verified 01/29/17 09:19 codeine Allergy Hives Verified 01/29/17 09:19 ibuprofen Allergy Hives Verified 01/29/17 09:19 morphine Allergy Hives Verified 01/29/17 09:19 sulfamethoxazole Allergy Hives Verified 01/29/17 09:19 [Sulfamethoxazole] Home Medications: Home Meds Indomethacin 25 mg PO TID PRN 10/28/12 [History] Loperamide [Imodium AD] 1 mg PO BID PRN 10/28/12 [History] Losartan Potassium 25 mg PO DAILY 10/28/12 [History] Sertraline HCl 200 mg PO DAILY 10/28/12 [History] Clopidogrel Bisulfate [Plavix] 75 mg PO DAILY 12/26/15 [History] Rosuvastatin Calcium 20 mg PO QPM 12/10/16 [History] Past Medical History HEENT History: Reports: Hard of Hearing, Impaired Vision Cardiovascular History: Reports: High Cholesterol, Hypertension Other Cardiovascular History: hydrocephalus Respiratory History: Reports: Sleep Apnea, SOB, Other (See Below) Other Respiratory History: left thoracic outlet syndrome Gastrointestinal History: Reports: Chronic Diarrhea, Hemorrhoids Other Gastrointestinal History: uses anit-diarrhea med but then became constipated Genitourinary History: Reports: None, Urinary Incontinence Musculoskeletal History: Reports: Back Pain, Chronic, Fracture Other Musculoskeletal History: R hip, L arm and leg parasthesia and increased muscle tone from CVA Neurological History: Reports: CVA, TIA, Other (See Below) Other Neuro History: 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 Psychiatric History: Reports: Depression Endocrine/Metabolic History: Reports: None Hematologic History: Reports: None Immunologic History: Reports: None Oncologic (Cancer) History: Reports: None Dermatologic History: Reports: Other (See Below) - Infectious Disease History Infectious Disease History: Reports: Chicken Pox, Influenza, Measles, MRSA, Mumps, Pertussis (Whooping Cough) - Past Surgical History Respiratory Surgical History: Reports: Other (See Below) Other Respiratory Surgeries/Procedures: removed 1st left rib GI Surgical History: Reports: Other (See Below) Other GI Surgeries/Procedures: hemorrhoidectomy Neurological Surgical History: Reports: Laminectomy, Lumbar Spine, Other (See Below) Other Neurological Surgeries/Procedures: shunt revisions Musculoskeletal Surgical History: Reports: Shoulder Surgery, Other (See Below) Other Musculoskeletal Surgeries/Procedures:: Laminectomy Social & Family History - Family History Family Medical History: Noncontributory - Tobacco Use Smoking Status *Q: Never Smoker Used Tobacco, but Quit: Yes Month Tobacco Last Used: none Second Hand Smoke Exposure: No - Caffeine Use Caffeine Use: Reports: None - Recreational Drug Use Recreational Drug Use: No H&P Review of Systems - Review of Systems: Review Of Systems: ROS reveals no pertinent complaints other than HPI. Exam - Exam Exam: See Below - Exam General: Alert, Cooperative HEENT: PERRLA, Conjunctiva Clear Neck: Supple, Trachea Midline Lungs: Clear to Auscultation, Normal Respiratory Effort Cardiovascular: Regular Rate, Regular Rhythm GI/Abdominal Exam: Normal Bowel Sounds Back Exam: Normal Inspection Extremities: Normal Inspection Peripheral Pulses: 2+: Dorsalis Pedis (L), Dorsalis Pedis (R) Skin: Warm, Dry, Intact Neurological: Other (pre-existing left hemiparesis, clonus of left, mild clonus on right; weakness of right, loss of sensory and motor of left) *Q Meaningful Use (ADM) - VTE *Q VTE Criteria *Q: - Stroke *Q Stroke Criteria *Q: - AMI *Q AMI Criteria *Q: Problem List Initiated/Reviewed/Updated: Yes Orders Last 24hrs: Active Orders 24 hr Category Date Time Status Patient Status [ADT] Routine ADT 02/01/17 08:34 Ordered Consult to Health Inspector Food [CONS] Routine Cons 02/01/17 08:34 Ordered Consult to Home Health [CONS] Routine Cons 02/01/17 08:34 Ordered Consult to Infection Prevention [CONS] Routine Cons 02/01/17 08:34 Ordered Consult to Fish Hatchery Supervisor [CONS] Routine Cons 02/01/17 08:34 Ordered OT Evaluation and Treatment [CONS] Routine Cons 02/01/17 08:34 Ordered PT Evaluation and Treatment [CONS] Routine Cons 02/01/17 08:34 Ordered Tuberculin, PPD [Aplisol] Med 02/01/17 08:34 Once 5 unit IDERM ONETIME ONE Resuscitation Status Routine Resus Stat 02/01/17 08:34 Ordered Assessment/Plan Comment:: CVA history with new CVA and recovering - PT/OT for weakness and ambulation HTN - Controlled HLP- Continue on Rosuvastatin - prior issues with high dose statin causing memory loss. Chronic back pain - continue pain management prn Depression - We will continue to reassess and monitor for management and adjustment of medications Hyperhidrosis - Supportive and conservative therapy at this time. Most likely from prior CVA causing reflexive parasympathetic diaphoresis.
[2017-02-01] MEDS ORDERED: Loperamide 2 MG Cap PO PRN (14:17)
[2017-02-01] MEDS: Enoxaparin 100 MG/1 ML Syringe SUBCUT SCH (20:40)
[2017-02-01] MEDS: oxyCODONE 5 MG Tab PO PRN (20:40)
[2017-02-01] MEDS: Indomethacin 25 MG Cap PO PRN (20:42)
[2017-02-01] MEDS: Rosuvastatin 20 MG Tab PO SCH (20:42)
[2017-02-02] MEDS: Enoxaparin 100 MG/1 ML Syringe SUBCUT SCH ×2 (08:36→21:05)
[2017-02-02] MEDS: Losartan 25 MG Tab PO SCH (08:37)
[2017-02-02] MEDS: Clopidogrel 75 MG Tab PO SCH (08:38)
[2017-02-02] MEDS: Sertraline 100 MG Tab PO SCH (08:38)
[2017-02-02] MEDS: Sodium Chloride 0.9% 10 ML Syringe FLUSH SCH ×2 (08:38→21:07)
[2017-02-02] MEDS ORDERED: Pneumococcal 13-Valent Conjugate Vaccine 0.5 ML Syringe IM ONE (10:00)
--- NOTE | 2017-02-02 18:07 | PCM.SN ---
- Free Text/Narrative Note: Patient has shown significant improvement and possible that he is 60-70% baseline. He states he would like to go home. Counseled on further PT/OT evaluation for ADL and ambulation for safety. No changes to management and we will f/u on . Signed out to Dr. Elmore for the weekend if any issues.
[2017-02-02] MEDS: Rosuvastatin 20 MG Tab PO SCH (21:05)
[2017-02-03] MEDS: Clopidogrel 75 MG Tab PO SCH (09:18)
[2017-02-03] MEDS: Sodium Chloride 0.9% 10 ML Syringe FLUSH SCH ×2 (09:18→20:33)
[2017-02-03] MEDS: Losartan 25 MG Tab PO SCH (09:18)
[2017-02-03] MEDS: Enoxaparin 100 MG/1 ML Syringe SUBCUT SCH ×2 (09:18→20:32)
[2017-02-03] MEDS: Sertraline 100 MG Tab PO SCH (09:26)
[2017-02-03] MEDS: Rosuvastatin 20 MG Tab PO SCH (20:32)
[2017-02-04] MEDS: Enoxaparin 100 MG/1 ML Syringe SUBCUT SCH ×2 (08:25→20:29)
[2017-02-04] MEDS: Clopidogrel 75 MG Tab PO SCH (08:25)
[2017-02-04] MEDS: Sertraline 100 MG Tab PO SCH (08:25)
[2017-02-04] MEDS: Losartan 25 MG Tab PO SCH (08:25)
[2017-02-04] MEDS: Sodium Chloride 0.9% 10 ML Syringe FLUSH SCH (08:26)
[2017-02-04] MEDS: Indomethacin 25 MG Cap PO PRN (17:06)
[2017-02-04] MEDS: oxyCODONE 5 MG Tab PO PRN (18:15)
[2017-02-04] MEDS: Rosuvastatin 20 MG Tab PO SCH (20:29)
[2017-02-05] MEDS: Sertraline 100 MG Tab PO SCH (07:51)
[2017-02-05] MEDS: Losartan 25 MG Tab PO SCH (07:51)
[2017-02-05] MEDS: Clopidogrel 75 MG Tab PO SCH (07:51)
[2017-02-05] MEDS: Enoxaparin 100 MG/1 ML Syringe SUBCUT SCH ×2 (07:51→20:13)
[2017-02-05] MEDS: Indomethacin 25 MG Cap PO PRN (08:06)
[2017-02-05] MEDS: Sodium Chloride 0.9% 10 ML Syringe FLUSH SCH ×2 (08:09→20:12)
[2017-02-05] MEDS: oxyCODONE 5 MG Tab PO PRN (13:50)
[2017-02-05] MEDS: Rosuvastatin 20 MG Tab PO SCH (20:12)
[2017-02-06] MEDS: Indomethacin 25 MG Cap PO PRN (01:06)
[2017-02-06] MEDS: oxyCODONE 5 MG Tab PO PRN (07:55)
[2017-02-06] MEDS: Sertraline 100 MG Tab PO SCH (08:44)
[2017-02-06] MEDS: Clopidogrel 75 MG Tab PO SCH (08:44)
[2017-02-06] MEDS: Enoxaparin 100 MG/1 ML Syringe SUBCUT SCH ×2 (08:45→20:04)
[2017-02-06] MEDS: Losartan 25 MG Tab PO SCH (08:46)
[2017-02-06] MEDS: Sodium Chloride 0.9% 10 ML Syringe FLUSH SCH ×2 (08:47→20:00)
--- NOTE | 2017-02-06 17:58 | PCM.PN ---
- General Info Date of Service: 02/06/17 Subjective Update: Patient is doing well. He is eating well and has no concerns. He does have some spasms of the left leg which is new in onset since the recent CVA. Functional Status: Reports: Tolerating Diet - Review of Systems General: Reports: Weakness HEENT: Reports: No Symptoms Pulmonary: Reports: No Symptoms Cardiovascular: Reports: No Symptoms Gastrointestinal: Reports: No Symptoms Genitourinary: Reports: No Symptoms Musculoskeletal: Reports: No Symptoms Skin: Reports: No Symptoms Neurological: Reports: Pre-Existing Deficit, Difficulty Walking, Weakness Psychiatric: Reports: No Symptoms - Patient Data Vitals - Most Recent: Last Vital Signs Temp 37.1 C 02/06/17 10:00 Pulse 72 02/06/17 10:00 Resp 16 02/06/17 10:00 BP 99/69 02/06/17 10:00 Pulse Ox 98 02/06/17 10:00 Weight - Most Recent: 100.244 kg Med Orders - Current: Current Medications Clopidogrel Bisulfate (Plavix) 75 mg PO DAILY [facility] Last Admin: 02/06/17 08:44 Dose: 75 mg Enoxaparin Sodium (Lovenox) 100 mg SUBCUT BID [facility] Last Admin: 02/06/17 08:45 Dose: 100 mg Indomethacin (Indocin) 25 mg PO TID PRN PRN Reason: PAIN Last Admin: 02/06/17 01:06 Dose: 25 mg Loperamide HCl (Imodium) 2 mg PO BID PRN PRN Reason: DIARRHEA Losartan Potassium (Cozaar) 25 mg PO DAILY [facility] Last Admin: 02/06/17 08:46 Dose: Not Given Oxycodone HCl (Oxycodone) 5 mg PO Q4H PRN PRN Reason: MODERATE PAIN Last Admin: 02/06/17 07:55 Dose: 5 mg Rosuvastatin Calcium (Crestor) 20 mg PO BEDTIME [facility] Last Admin: 02/05/17 20:12 Dose: 20 mg Sertraline HCl (Zoloft) 200 mg PO DAILY [facility] Last Admin: 02/06/17 08:44 Dose: 200 mg Sodium Chloride (Saline Flush) 10 ml FLUSH BID [facility] Last Admin: 02/06/17 08:47 Dose: 10 ml Tuberculin PPD (Aplisol) 5 unit IDERM ONETIME ONE Stop: 02/15/17 08:01 Discontinued Medications Pneumococcal 13-Valent Conj Vacc (Prevnar 13) 0.5 ml IM .ONCE ONE Stop: 02/02/17 10:01 Last Admin: 02/02/17 11:36 Dose: Not Given Tuberculin PPD (Aplisol) 5 unit IDERM ONETIME ONE Stop: 02/01/17 08:35 Last Admin: 02/01/17 20:48 Dose: 5 unit - Exam General: Alert, Oriented, Cooperative HEENT: Pupils Equal, Pupils Reactive, EOMI Lungs: Clear to Auscultation, Normal Respiratory Effort Cardiovascular: Regular Rate, Regular Rhythm GI/Abdominal Exam: Normal Bowel Sounds Extremities: Other (left foot contractures; left hand contractures) Peripheral Pulses: 2+: Dorsalis Pedis (L), Dorsalis Pedis (R) Skin: Warm, Dry, Intact Neurological: No New Focal Deficit Psy/Mental Status: Alert, Normal Affect, Normal Mood - Problem List Review Problem List Initiated/Reviewed/Updated: Yes - My Orders Last 24 Hours: My Active Orders 02/15/17 08:00 Tuberculin, PPD [Aplisol] 5 unit IDERM ONETIME ONE - Plan Plan:: CVA history with new CVA and recovering - PT/OT for weakness and ambulation HTN - Controlled HLP- Continue on Rosuvastatin - prior issues with high dose statin causing memory loss. Chronic back pain - continue pain management prn Depression - We will continue to reassess and monitor for management and adjustment of medications Hyperhidrosis - Supportive and conservative therapy at this time. Most likely from prior CVA causing reflexive parasympathetic diaphoresis. Patient to work with PT/OT this week. We will discuss care plan tomorrow.
[2017-02-06] MEDS: Rosuvastatin 20 MG Tab PO SCH (20:03)
[2017-02-07] MEDS: Clopidogrel 75 MG Tab PO SCH (08:49)
[2017-02-07] MEDS: Sertraline 100 MG Tab PO SCH (08:49)
[2017-02-07] MEDS: Enoxaparin 100 MG/1 ML Syringe SUBCUT SCH ×2 (08:50→19:52)
[2017-02-07] MEDS: Losartan 25 MG Tab PO SCH (08:51)
[2017-02-07] MEDS: Sodium Chloride 0.9% 10 ML Syringe FLUSH SCH ×2 (08:51→19:53)
[2017-02-07] MEDS: oxyCODONE 5 MG Tab PO PRN ×2 (13:13→19:51)
[2017-02-07] MEDS: Indomethacin 25 MG Cap PO PRN ×2 (16:06→19:52)
--- NOTE | 2017-02-07 17:21 | PCM.SN ---
- Free Text/Narrative Note: Patient seen at 1710 for left knee pain and swelling. Patient feels that it is similar to his prior gout arthritis. Patient denies any fever or chills. Examined left knee shows some redness in between the areas of bruising. Bruising is round and around whole surface of knee circumferential. Warm to touch compared to right knee. There is an abrasion from his prior fall. Patient counseled and started on keflex and labs ordered. F/u in am and as needed.
[2017-02-07] MEDS: Cephalexin 500 MG Cap PO SCH (17:57)
[2017-02-07] MEDS: Rosuvastatin 20 MG Tab PO SCH (19:52)
[2017-02-08] MEDS: oxyCODONE 5 MG Tab PO PRN ×4 (01:59→22:56)
[2017-02-08] MEDS: Indomethacin 25 MG Cap PO PRN ×2 (04:19→15:17)
[2017-02-08] MEDS: Losartan 25 MG Tab PO SCH (07:34)
[2017-02-08] MEDS: Cephalexin 500 MG Cap PO SCH ×4 (07:36→19:08)
[2017-02-08] MEDS: Sertraline 100 MG Tab PO SCH (07:37)
[2017-02-08] MEDS: Clopidogrel 75 MG Tab PO SCH (07:37)
[2017-02-08] MEDS: Enoxaparin 100 MG/1 ML Syringe SUBCUT SCH ×2 (07:37→19:08)
[2017-02-08] MEDS: Sodium Chloride 0.9% 10 ML Syringe FLUSH SCH ×2 (07:38→10:18)
[2017-02-08] MEDS: Baclofen 10 MG Tab PO SCH ×2 (15:18→19:08)
[2017-02-08] MEDS: Rosuvastatin 20 MG Tab PO SCH (19:09)
[2017-02-09] MEDS: oxyCODONE 5 MG Tab PO PRN ×4 (05:01→20:08)
[2017-02-09] MEDS: Losartan 25 MG Tab PO SCH (08:28)
[2017-02-09] MEDS: Clopidogrel 75 MG Tab PO SCH (08:35)
[2017-02-09] MEDS: Cephalexin 500 MG Cap PO SCH ×4 (08:35→20:09)
[2017-02-09] MEDS: Baclofen 10 MG Tab PO SCH ×3 (08:35→20:09)
[2017-02-09] MEDS: Sertraline 100 MG Tab PO SCH (08:36)
[2017-02-09] MEDS: Enoxaparin 100 MG/1 ML Syringe SUBCUT SCH ×2 (08:36→20:10)
--- NOTE | 2017-02-09 10:49 | PCM.SN ---
- Free Text/Narrative Note: Patient had an episode of dizziness and diaphoresis. This is a common occurrence for the patient but this last episode was worse than previous. He states he gets this was every time he gets up too quickly. The symptoms have resolved and usually only last a few minutes. Patient denies any shortness of breath or chest pain during these episodes. He states he has noticed increased cramping and pain of the left leg mainly of the thigh. He does note that the left knee pain has improved greatly. Patient alert and oriented. He was recently started on baclofen yesterday after discussion and evaluation by PT due to increased let leg spasms. Patient has improved spasms but on exam the left thigh has increased tone and muscle spasms. The left knee has improved and the warmth and swelling has reduced and improving. The bruise of the left knee is stable and now a brown yellow color. Abrasion of left knee close and healing. Discussed likely residual effects of CVA and overactive parasympathetics when he is active causing diaphoresis and BP changes causing dizziness and orthostatic hypotension. Patient counseled on gradual changes in activity especially from lying in bed to sitting to getting up. We will continue close f/ u and repeat labs this am. Dr. Underwood will cover this weekend.
[2017-02-09] MEDS: Indomethacin 25 MG Cap PO PRN (18:34)
[2017-02-09] MEDS: Rosuvastatin 20 MG Tab PO SCH (20:09)
[2017-02-10] MEDS: oxyCODONE 5 MG Tab PO PRN ×3 (02:59→21:01)
[2017-02-10] MEDS ORDERED: Bisacodyl 10 MG Supp RECTAL PRN (06:00)
[2017-02-10] MEDS: Clopidogrel 75 MG Tab PO SCH (07:53)
[2017-02-10] MEDS: Baclofen 10 MG Tab PO SCH ×3 (07:53→20:57)
[2017-02-10] MEDS: Sertraline 100 MG Tab PO SCH (07:54)
[2017-02-10] MEDS: Cephalexin 500 MG Cap PO SCH ×4 (07:54→22:30)
[2017-02-10] MEDS: Losartan 25 MG Tab PO SCH (07:55)
[2017-02-10] MEDS: Enoxaparin 100 MG/1 ML Syringe SUBCUT SCH ×2 (07:57→21:04)
[2017-02-10] MEDS: Indomethacin 25 MG Cap PO PRN (20:58)
[2017-02-10] MEDS: Rosuvastatin 20 MG Tab PO SCH (21:04)
[2017-02-10] MEDS: BIOFREEZE TOP PRN (22:30)
[2017-02-11] MEDS: oxyCODONE 5 MG Tab PO PRN ×4 (00:55→19:52)
[2017-02-11] MEDS: Losartan 25 MG Tab PO SCH (07:26)
[2017-02-11] MEDS: Baclofen 10 MG Tab PO SCH ×3 (07:28→19:52)
[2017-02-11] MEDS: Cephalexin 500 MG Cap PO SCH ×4 (07:28→19:51)
[2017-02-11] MEDS: Enoxaparin 100 MG/1 ML Syringe SUBCUT SCH ×2 (07:29→19:53)
[2017-02-11] MEDS: Clopidogrel 75 MG Tab PO SCH (07:30)
[2017-02-11] MEDS: Sertraline 100 MG Tab PO SCH (07:31)
[2017-02-11] MEDS: Indomethacin 25 MG Cap PO PRN (07:34)
[2017-02-11] MEDS: Rosuvastatin 20 MG Tab PO SCH (19:52)
[2017-02-11] MEDS: BIOFREEZE TOP PRN (20:39)
[2017-02-12] MEDS: oxyCODONE 5 MG Tab PO PRN (06:04)
[2017-02-12] MEDS: Enoxaparin 100 MG/1 ML Syringe SUBCUT SCH ×2 (07:59→19:48)
[2017-02-12] MEDS: Losartan 25 MG Tab PO SCH (08:00)
[2017-02-12] MEDS: Sertraline 100 MG Tab PO SCH (08:00)
[2017-02-12] MEDS: Baclofen 10 MG Tab PO SCH ×3 (08:00→19:48)
[2017-02-12] MEDS: Cephalexin 500 MG Cap PO SCH ×4 (08:00→20:01)
[2017-02-12] MEDS: Clopidogrel 75 MG Tab PO SCH (08:00)
--- NOTE | 2017-02-12 15:58 | PCM.PN ---
- General Info Date of Service: 02/12/17 Subjective Update: Patient states he feels well. Denies any pain or symptoms at this time. He continues to have left sided spasms and weakness with residual left sided hemiparesis. Patient does feel he is getting stronger. Functional Status: Reports: Pain Controlled - Review of Systems General: Reports: Weakness HEENT: Reports: No Symptoms Pulmonary: Reports: No Symptoms Cardiovascular: Reports: No Symptoms Gastrointestinal: Reports: No Symptoms - Patient Data Vitals - Most Recent: Last Vital Signs Temp 36.5 C 02/11/17 10:00 Pulse 65 02/11/17 10:00 Resp 13 02/11/17 10:00 BP 134/74 02/11/17 10:00 Pulse Ox 97 02/11/17 10:00 Weight - Most Recent: 96.162 kg I&O - Last 24 Hours: Intake & Output 02/12/17 02/12/17 02/12/17 06:59 14:59 22:59 Intake Total 200 Output Total 500 Balance -300 Med Orders - Current: Current Medications Baclofen (Lioresal) 10 mg PO TID [facility] Last Admin: 02/12/17 13:38 Dose: 10 mg Bisacodyl (Dulcolax) 10 mg RECTAL DAILY PRN PRN Reason: Constipation Cephalexin (Keflex) 500 mg PO QID [facility] Stop: 02/17/17 18:00 Last Admin: 02/12/17 12:33 Dose: 500 mg Clopidogrel Bisulfate (Plavix) 75 mg PO DAILY [facility] Last Admin: 02/12/17 08:00 Dose: 75 mg Enoxaparin Sodium (Lovenox) 100 mg SUBCUT BID [facility] Last Admin: 02/12/17 07:59 Dose: 100 mg Indomethacin (Indocin) 25 mg PO TID PRN PRN Reason: PAIN Last Admin: 02/11/17 07:34 Dose: 25 mg Loperamide HCl (Imodium) 2 mg PO BID PRN PRN Reason: DIARRHEA Losartan Potassium (Cozaar) 25 mg PO DAILY [facility] Last Admin: 02/12/17 08:00 Dose: 25 mg Biofreeze Gel (Own Med) 0 each TOP QID PRN PRN Reason: Muscle Spasm Last Admin: 02/11/17 20:39 Dose: 1 each Oxycodone HCl (Oxycodone) 5 mg PO Q4H PRN PRN Reason: MODERATE PAIN Last Admin: 02/12/17 06:04 Dose: 5 mg Rosuvastatin Calcium (Crestor) 20 mg PO BEDTIME [facility] Last Admin: 02/11/17 19:52 Dose: 20 mg Senna/Docusate Sodium (Senna Plus) 1 tab PO BID [facility] Last Admin: 02/12/17 08:00 Dose: 1 tab Sertraline HCl (Zoloft) 200 mg PO DAILY [facility] Last Admin: 02/12/17 08:00 Dose: 200 mg Discontinued Medications Pneumococcal 13-Valent Conj Vacc (Prevnar 13) 0.5 ml IM .ONCE ONE Stop: 02/02/17 10:01 Last Admin: 02/02/17 11:36 Dose: Not Given Sodium Chloride (Saline Flush) 10 ml FLUSH BID [facility] Last Admin: 02/08/17 10:18 Dose: Not Given Tuberculin PPD (Aplisol) 5 unit IDERM ONETIME ONE Stop: 02/01/17 08:35 Last Admin: 02/01/17 20:48 Dose: 5 unit Tuberculin PPD (Aplisol) 5 unit IDERM ONETIME ONE Stop: 02/15/17 08:01 - Exam General: Alert, Oriented, Cooperative HEENT: Pupils Equal, Pupils Reactive Neck: Supple, +2 Carotid Pulse wo Bruit Lungs: Clear to Auscultation, Normal Respiratory Effort Cardiovascular: Regular Rate, Regular Rhythm GI/Abdominal Exam: Normal Bowel Sounds, Soft, Non-Tender Extremities: Other (left leg contractures, left arm contractures) Skin: Warm, Dry, Intact Neurological: No New Focal Deficit - Problem List & Annotations (1) Traumatic ecchymosis of left knee SNOMED Code(s): 659453350 Code(s): S80.02XA - CONTUSION OF LEFT KNEE, INITIAL ENCOUNTER Status: Acute Current Visit: Yes (2) Cellulitis SNOMED Code(s): 137364888 Code(s): L03.90 - CELLULITIS, UNSPECIFIED Status: Acute Current Visit: Yes (3) CVA, Cerebrovascular accident SNOMED Code(s): 789864402 Code(s): I63.9 - CEREBRAL INFARCTION, UNSPECIFIED Status: Acute Priority : High Current Visit: No (4) Chronic back pain SNOMED Code(s): 050170733 Code(s): M54.9 - DORSALGIA, UNSPECIFIED; G89.29 - OTHER CHRONIC PAIN Status : Acute Current Visit: No Qualifiers: Back pain location: low back pain Back pain laterality: bilateral Sciatica presence: unspecified whether sciatica present Qualified Code(s): M54.5 - Low back pain; G89.29 - Other chronic pain; G89.29 - Other chronic pain (5) Falls SNOMED Code(s): 1882937 Code(s): W19.XXXA - UNSPECIFIED FALL, INITIAL ENCOUNTER Status: Acute Current Visit: No Onset Date: ~09/30/15 (6) HTN (hypertension) SNOMED Code(s): 68759296 Code(s): I10 - ESSENTIAL (PRIMARY) HYPERTENSION Status: Acute Priority: Medium Current Visit: No Qualifiers: Hypertension type: essential hypertension Qualified Code(s): I10 - Essential (primary) hypertension (7) History of cerebrovascular accident (CVA) with residual deficit SNOMED Code(s): 776064515 Code(s): I69.30 - UNSPECIFIED SEQUELAE OF CEREBRAL INFARCTION Status: Acute Priority: High Current Visit: No (8) Intercostal muscle strain SNOMED Code(s): 499479100 Code(s): S29.011A - STRAIN OF MUSCLE AND TENDON OF FRONT WALL OF THORAX, INIT Status: Acute Current Visit: No Qualifiers: Encounter type: initial encounter Qualified Code(s): S29.011A - Strain of muscle and tendon of front wall of thorax, initial encounter (9) Knee pain SNOMED Code(s): 74861002 Code(s): M25.569 - PAIN IN UNSPECIFIED KNEE Status: Acute Current Visit: No Onset Date: ~09/30/15 (10) Weakness of lower extremity SNOMED Code(s): 859516548 Code(s): M62.81 - MUSCLE WEAKNESS (GENERALIZED) Status: Acute Priority: High Current Visit: No Onset Date: ~09/30/15 Qualifiers: Laterality: bilateral Qualified Code(s): R29.898 - Other symptoms and signs involving the musculoskeletal system Annotation/Comment:: Patient is toe-touch weight bearing. Transfer with assistance. Patient to go to acute rehab for strengthening and ADL's. (11) Depression SNOMED Code(s): 48888942 Code(s): F32.9 - MAJOR DEPRESSIVE DISORDER, SINGLE EPISODE, UNSPECIFIED Status: Chronic Priority: Medium Current Visit: No Qualifiers: Depression Type: other depression Qualified Code(s): F32.89 - Other specified depressive episodes (12) Hyperhidrosis SNOMED Code(s): 034684141 Code(s): L74.519 - PRIMARY FOCAL HYPERHIDROSIS, UNSPECIFIED Status: Chronic Priority: Medium Current Visit: No - Problem List Review Problem List Initiated/Reviewed/Updated: Yes - My Orders Last 24 Hours: My Active Orders 02/12/17 11:30 QUANTIFERON TB GOLD IN-TUBE [REF] Routine - Plan Plan:: CVA history with new CVA and recovering - PT/OT for weakness and ambulation HTN - Controlled HLP- Continue on Rosuvastatin - prior issues with high dose statin causing memory loss. Chronic back pain - continue pain management prn Depression - We will continue to reassess and monitor for management and adjustment of medications Hyperhidrosis - Supportive and conservative therapy at this time. Most likely from prior CVA causing reflexive parasympathetic diaphoresis. Patient to work with PT/OT this week. We will discuss care plan tomorrow. 02/12/17 Patient care plan for discharge to acute rehab facility for further intervention and increased Physical Therapy. Patient and family agree with plan of care and management. We will continue keflex for cellulitis of skin of left knee. No other changes today.
[2017-02-12] MEDS: Rosuvastatin 20 MG Tab PO SCH (19:48)
[2017-02-13] MEDS: Losartan 25 MG Tab PO SCH (07:39)
[2017-02-13] MEDS: Baclofen 10 MG Tab PO SCH (07:41)
[2017-02-13] MEDS: Clopidogrel 75 MG Tab PO SCH (07:41)
[2017-02-13] MEDS: Cephalexin 500 MG Cap PO SCH (07:41)
[2017-02-13] MEDS: Sertraline 100 MG Tab PO SCH (07:42)
[2017-02-13] MEDS: Enoxaparin 100 MG/1 ML Syringe SUBCUT SCH (07:42)
--- NOTE | 2017-02-13 07:51 | PCM.DCSUM1 ---
Discharge Summary - Discharge Data Discharge Date: 02/13/17 Discharge Disposition: DC/Tfer to Inpt Rehab Fac 62 Condition: Good - Discharge Diagnosis/Problem(s) (1) CVA, Cerebrovascular accident SNOMED Code(s): 137850244 ICD Code: I63.9 - CEREBRAL INFARCTION, UNSPECIFIED Status: Acute Priority : High Current Visit: No (2) History of cerebrovascular accident (CVA) with residual deficit SNOMED Code(s): 886543303 ICD Code: I69.30 - UNSPECIFIED SEQUELAE OF CEREBRAL INFARCTION Status: Acute Priority: High Current Visit: No (3) Weakness of lower extremity SNOMED Code(s): 082715691 ICD Code: M62.81 - MUSCLE WEAKNESS (GENERALIZED) Status: Acute Priority: High Current Visit: No Onset Date: ~09/30/15 Problem Details: Patient is toe-touch weight bearing. Transfer with assistance. Patient to go to acute rehab for strengthening and ADL's. Qualifiers: Laterality: bilateral Qualified Code(s): R29.898 - Other symptoms and signs involving the musculoskeletal system (4) Depression SNOMED Code(s): 93464485 ICD Code: F32.9 - MAJOR DEPRESSIVE DISORDER, SINGLE EPISODE, UNSPECIFIED Status: Chronic Priority: Medium Current Visit: No Qualifiers: Depression Type: other depression Qualified Code(s): F32.89 - Other specified depressive episodes (5) Hyperhidrosis SNOMED Code(s): 965825422 ICD Code: L74.519 - PRIMARY FOCAL HYPERHIDROSIS, UNSPECIFIED Status: Chronic Priority: Medium Current Visit: No - Patient Summary/Data Consults: Consultations 02/01/17 08:34 Consult to Renewals Representative [CONS] Routine Comment: Physician Instructions: Quantity: Consult to Home Health [CONS] Routine Comment: Physician Instructions: Consult to Infection Prevention [CONS] Routine Comment: Physician Instructions: Consult to Fire Fighting Equipment Specialist [CONS] Routine Comment: Physician Instructions: OT Evaluation and Treatment [CONS] Routine Please Evaluate and Treat. OT Reason for Consult: ADL's This query below is only for informational purposes and is not editable. Admission Diagnosis/Problem: Weakness PT Evaluation and Treatment [CONS] Routine Please Evaluate and Treat. PT Reason for Consult: Ambulation This query below is only for informational purposes and is not editable. Admission Diagnosis/Problem: Weakness 02/02/17 09:00 Consult to Speech Language Pathology [GRATING MACHINE OPERATOR Evaluation and Treatment] [CONS] Routine Please Evaluate and Treat GRATING MACHINE OPERATOR Reason for Consult: Swallow This query below is only for informational purposes and is not editable. Admission Diagnosis/Problem: Weakness - Patient Instructions Diet: Usual Diet as Tolerated Activity: As Tolerated Driving: Do Not Drive Showering/Bathing: May Shower - Discharge Plan Home Medications: Home Meds Indomethacin 25 mg PO TID PRN 10/28/12 [History] Loperamide [Imodium AD] 1 mg PO BID PRN 10/28/12 [History] Losartan Potassium 25 mg PO DAILY 10/28/12 [History] Sertraline HCl 200 mg PO DAILY 10/28/12 [History] Clopidogrel Bisulfate [Plavix] 75 mg PO DAILY 12/26/15 [History] Rosuvastatin Calcium 20 mg PO QPM 12/10/16 [History] Enoxaparin [Lovenox] 100 mg SUBCUT Q12HR syringe 02/01/17 [Rx] Loperamide [Imodium] 2 mg PO BID PRN cap 02/01/17 [Rx] oxyCODONE 5 mg PO Q4H PRN tablet 02/01/17 [Rx] Baclofen [Lioresal] 10 mg PO TID tablet 02/12/17 [Rx] Bisacodyl [Dulcolax] 10 mg RECTAL DAILY PRN supp 02/12/17 [Rx] Cephalexin [IJD: Cephalexin] 500 mg PO QID capsule 02/12/17 [Rx] Clopidogrel [Plavix] 75 mg PO DAILY tablet 02/12/17 [Rx] Docusate Sodium/Sennosides [Senna Plus] 1 tab PO BID tablet 02/12/17 [Rx] Enoxaparin [Lovenox] 100 mg SUBCUT BID syringe 02/12/17 [Rx] Indomethacin [Indocin] 25 mg PO TID PRN cap 02/12/17 [Rx] Loperamide [Imodium] 2 mg PO BID PRN cap 02/12/17 [Rx] Losartan [Cozaar] 25 mg PO DAILY tablet 02/12/17 [Rx] Rosuvastatin [Crestor] 20 mg PO BEDTIME tablet 02/12/17 [Rx] Sertraline [Zoloft] 200 mg PO DAILY tablet 02/12/17 [Rx] oxyCODONE 5 mg PO Q4H PRN tablet 02/12/17 [Rx] - Discharge Summary/Plan Comment Discharge Summary/Plan Comment: Plan of care discussed with and patient. Patient is toe-touch weight bearing. Transfer with assistance. Patient to go to acute rehab for strengthening and ADL's. Keflex to continue until course of 10 days is done. Discharge to acute physical therapy rehabilitation facility. - Patient Data Vitals - Most Recent: Last Vital Signs Temp 36.5 C 02/11/17 10:00 Pulse 65 02/11/17 10:00 Resp 13 02/11/17 10:00 BP 113/65 02/13/17 07:39 Pulse Ox 97 02/11/17 10:00 Weight - Most Recent: 96.162 kg Med Orders - Current: Current Medications Baclofen (Lioresal) 10 mg PO TID [facility] Last Admin: 02/13/17 07:41 Dose: 10 mg Bisacodyl (Dulcolax) 10 mg RECTAL DAILY PRN PRN Reason: Constipation Cephalexin (Keflex) 500 mg PO QID [facility] Stop: 02/17/17 18:00 Last Admin: 02/13/17 07:41 Dose: 500 mg Clopidogrel Bisulfate (Plavix) 75 mg PO DAILY [facility] Last Admin: 02/13/17 07:41 Dose: 75 mg Enoxaparin Sodium (Lovenox) 100 mg SUBCUT BID [facility] Last Admin: 02/13/17 07:42 Dose: 100 mg Indomethacin (Indocin) 25 mg PO TID PRN PRN Reason: PAIN Last Admin: 02/11/17 07:34 Dose: 25 mg Loperamide HCl (Imodium) 2 mg PO BID PRN PRN Reason: DIARRHEA Losartan Potassium (Cozaar) 25 mg PO DAILY [facility] Last Admin: 02/13/17 07:39 Dose: 25 mg Biofreeze Gel (Own Med) 0 each TOP QID PRN PRN Reason: Muscle Spasm Last Admin: 02/11/17 20:39 Dose: 1 each Oxycodone HCl (Oxycodone) 5 mg PO Q4H PRN PRN Reason: MODERATE PAIN Last Admin: 02/12/17 06:04 Dose: 5 mg Rosuvastatin Calcium (Crestor) 20 mg PO BEDTIME [facility] Last Admin: 02/12/17 19:48 Dose: 20 mg Senna/Docusate Sodium (Senna Plus) 1 tab PO BID [facility] Last Admin: 02/13/17 07:42 Dose: 1 tab Sertraline HCl (Zoloft) 200 mg PO DAILY [facility] Last Admin: 02/13/17 07:42 Dose: 200 mg Discontinued Medications Pneumococcal 13-Valent Conj Vacc (Prevnar 13) 0.5 ml IM .ONCE ONE Stop: 02/02/17 10:01 Last Admin: 02/02/17 11:36 Dose: Not Given Sodium Chloride (Saline Flush) 10 ml FLUSH BID [facility] Last Admin: 02/08/17 10:18 Dose: Not Given Tuberculin PPD (Aplisol) 5 unit IDERM ONETIME ONE Stop: 02/01/17 08:35 Last Admin: 02/01/17 20:48 Dose: 5 unit Tuberculin PPD (Aplisol) 5 unit IDERM ONETIME ONE Stop: 02/15/17 08:01 *Q Meaningful Use (DIS) - VTE *Q VTE Criteria *Q: - Stroke *Q Stroke Criteria *Q: - AMI *Q AMI Criteria *Q:
[2017-02-13 13:11] VITALS: BP 133/69
[2017-02-15] MEDS ORDERED: Tuberculin, PPD 5 Units/0.1 ML 1 ML MDV IDERM ONE (08:00)
== END 2017-02-13 10:00 | DRG 65 ==
LOC: LB.MS 08:34
PROVIDERS: ADMIT Family Medicine; ATTEND Family Medicine
DX: I63.9 Cerebral infarction, unspecified (principal); I69.354 Hemiplegia and hemiparesis following cerebral infarction affecting left non-dominant side; M62.81 Muscle weakness (generalized); F32.89 Other specified depressive episodes; L74.519 Primary focal hyperhidrosis, unspecified; R47.01 Aphasia; E78.00 Pure hypercholesterolemia, unspecified; I10 Essential (primary) hypertension; S80.02XA Contusion of left knee, initial encounter; M54.5 Low back pain; G89.29 Other chronic pain; W19.XXXA Unspecified fall, initial encounter; Y92.019 Unspecified place in single-family (private) house as the place of occurrence of the external cause; S29.011A Strain of muscle and tendon of front wall of thorax, initial encounter; Z88.8 Allergy status to other drugs, medicaments and biological substances; Z79.899 Other long term (current) drug therapy
CPT/HCPCS: 36415; 80048; 83735; 84550; 85025; 86480; 86580; 97110-GO; 97163-GP; 97530-GO; 97530-GP; 97535-GO; A9270-GY; J1650; J7050

== ENCOUNTER 2017-07-21 00:59 | Observation (INO) | payer MEDICARE, BC ==
[2017-07-21] MEDS ORDERED: Sodium Chloride 0.9% 10 ML Syringe FLUSH PRN (04:33)
[2017-07-21] MEDS ORDERED: Indomethacin 25 MG Cap PO PRN (04:37)
[2017-07-21] MEDS ORDERED: Aspirin 81 MG Tab.Chew PO SCH (08:00)
[2017-07-21] MEDS ORDERED: Losartan 25 MG Tab PO SCH (08:00)
[2017-07-21] MEDS ORDERED: Clopidogrel 75 MG Tab PO SCH (08:00)
[2017-07-21] MEDS ORDERED: Baclofen 10 MG Tab PO SCH (08:00)
[2017-07-21] MEDS ORDERED: Sertraline 100 MG Tab PO SCH (08:00)
[2017-07-21 13:43] VITALS: BP 121/71
[2017-07-21] MEDS ORDERED: Rosuvastatin 20 MG Tab PO SCH (20:00)
--- NOTE | 2017-07-23 07:23 | CT ---
DATE OF SERVICE: 07/21/17 CLINICAL DATA: stroke like Sx UNENHANCED BRAIN CT: Multislice acquisition through the brain without IV contrast was performed. No priors. There is a craniotomy defect in the right frontal region. There is a ventriculostomy catheter in place with its distal tip in the third ventricle. There is an extensive area of encephalomalacia in the right middle cerebral artery distribution consistent with a large prior infarct. There are periventricular lucencies bilaterally consistent with small vessel ischemic change. No masses or mass effect. No intracranial hemorrhage. No evidence of acute or subacute infarct. [id number] [facility]
== END 2017-07-21 12:35 | disposition home or self-care (01) ==
LOC: LB.ED 00:59 → LB.MS 02:15 → UNDOADMOB 02:15 → LB.MS 04:33
PROVIDERS: ADMIT Nurse Practitioner; ATTEND Nurse Practitioner
DX: R42 Dizziness and giddiness (principal); I10 Essential (primary) hypertension; I69.339 Monoplegia of upper limb following cerebral infarction affecting unspecified side; E78.5 Hyperlipidemia, unspecified; G91.8 Other hydrocephalus; G47.30 Sleep apnea, unspecified; F32.9 Major depressive disorder, single episode, unspecified; F41.9 Anxiety disorder, unspecified; Z88.8 Allergy status to other drugs, medicaments and biological substances; Z88.5 Allergy status to narcotic agent; Z88.1 Allergy status to other antibiotic agents; Z88.2 Allergy status to sulfonamides; Z88.6 Allergy status to analgesic agent; Z98.2 Presence of cerebrospinal fluid drainage device
CPT/HCPCS: 36415; 70450; 80053; 84484; 85025; 85610; 93005; 99285-25; A0425; A0429; A9270-GY; G0378

== ENCOUNTER 2018-10-24 17:51 | Inpatient (IN) | payer MEDICARE ==
--- NOTE | 2018-10-24 18:15 | EDM.PDOC ---
ED HPI GENERAL MEDICAL PROBLEM - General Chief Complaint: General Stated Complaint: POSSIBLE STROKE Time Seen by Provider: 10/24/18 18:00 Source of Information: Reports: Patient, Family History Limitations: Reports: Altered Mental Status - History of Present Illness INITIAL COMMENTS - FREE TEXT/NARRATIVE: This is a 72yo M brought in by EMS for a recent fall and loss of consciousness. He states he remembers being on the toilet and then the next thing he recalls is being in the ER. He does note that he has been weaker the past few days. His notes that she tried to help him up from the toilet but he was not following commands and doing opposite actions and was unable to lift with his legs. Onset: Sudden Duration: Resolved Prior to Arrival Location: Reports: Generalized Associated Symptoms: Reports: Confusion - Related Data Allergies Allergy/AdvReac Type Severity Reaction Status Date / Time tuberculin, purified protein Allergy Intermediate Hives Verified 10/24/18 21:09 deriva acetaminophen [From Tylenol] Allergy Hives Verified 10/24/18 21:09 codeine Allergy Hives Verified 10/24/18 21:09 ibuprofen Allergy Hives Verified 10/24/18 21:09 morphine Allergy Hives Verified 10/24/18 21:09 sulfamethoxazole Allergy Hives Verified 10/24/18 21:09 [Sulfamethoxazole] Home Meds: Home Meds Sertraline HCl 200 mg PO DAILY 10/28/12 [History] Baclofen [Lioresal] 10 mg PO TID tablet 02/12/17 [Rx] Clopidogrel [Plavix] 75 mg PO DAILY tablet 02/12/17 [Rx] Loperamide [Imodium] 2 mg PO BID PRN cap 02/12/17 [Rx] Losartan [Cozaar] 25 mg PO DAILY tablet 02/12/17 [Rx] Rosuvastatin [Crestor] 20 mg PO BEDTIME tablet 02/12/17 [Rx] Aspirin 81 mg PO DAILY 07/21/17 [History] Past Medical History HEENT History: Reports: Hard of Hearing, Impaired Vision Cardiovascular History: Reports: High Cholesterol, Hypertension Other Cardiovascular History: hydrocephalus Respiratory History: Reports: Sleep Apnea, SOB, Other (See Below) Other Respiratory History: left thoracic outlet syndrome Gastrointestinal History: Reports: Chronic Diarrhea, Hemorrhoids Other Gastrointestinal History: uses anit-diarrhea med but then became constipated Genitourinary History: Reports: None, Urinary Incontinence Musculoskeletal History: Reports: Back Pain, Chronic, Fracture Other Musculoskeletal History: R hip, L arm and leg parasthesia and increased muscle tone from CVA Neurological History: Reports: CVA, TIA, Other (See Below) Other Neuro History: 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 Psychiatric History: Reports: Anxiety, Depression Endocrine/Metabolic History: Reports: None Hematologic History: Reports: Anticoagulation Therapy Immunologic History: Reports: None Oncologic (Cancer) History: Reports: None Dermatologic History: Reports: Other (See Below) - Infectious Disease History Infectious Disease History: Reports: Chicken Pox, Influenza, Measles, MRSA, Mumps, Pertussis (Whooping Cough) - Past Surgical History Head Surgeries/Procedures: Reports: Shunt Respiratory Surgical History: Reports: Other (See Below) Other Respiratory Surgeries/Procedures: removed 1st left rib GI Surgical History: Reports: Other (See Below) Other GI Surgeries/Procedures: hemorrhoidectomy Neurological Surgical History: Reports: Laminectomy, Lumbar Spine, Other (See Below) Other Neurological Surgeries/Procedures: shunt revisions Musculoskeletal Surgical History: Reports: Shoulder Surgery, Other (See Below) Other Musculoskeletal Surgeries/Procedures:: Laminectomy Oncologic Surgical History: Reports: None Social & Family History - Family History Family Medical History: Noncontributory Cardiac: Reports: Hypertension Neurological: Reports: CVA - Caffeine Use Caffeine Use: Reports: Coffee ED ROS GENERAL - Review of Systems Review Of Systems: ROS reveals no pertinent complaints other than HPI. ED EXAM, GENERAL - Physical Exam Exam: See Below Exam Limited By: Altered Mental Status General Appearance: Alert, WD/WN Eye Exam: Bilateral Eye: EOMI, PERRL Ears: Normal External Exam Ear Exam: Bilateral Ear: Auricle Normal, Canal Normal, TM normal Nose: Normal Inspection, Normal Mucosa, No Blood Throat/Mouth: Normal Inspection, Normal Lips, Normal Oropharynx Head: Atraumatic, Normocephalic Neck: Normal Inspection, Supple, Non-Tender Respiratory/Chest: No Respiratory Distress, Lungs Clear, Normal Breath Sounds Cardiovascular: Normal Peripheral Pulses, Regular Rate, Rhythm Peripheral Pulses: 2+: Dorsalis Pedis (L), Dorsalis Pedis (R) GI/Abdominal: Normal Bowel Sounds, Soft, Non-Tender Back Exam: Normal Inspection, Full Range of Motion Extremities: Normal Inspection Neurological: Alert, Confused, Disoriented, Memory Loss Recent Events, Sensory/ Motor Deficit (pre-existing and weaker in general bilaterally) Psychiatric: Normal Affect, Normal Mood Skin Exam: Warm, Dry, Intact Course - Vital Signs Last Recorded V/S: Last Vital Signs Temp 37.9 C 10/25/18 04:00 Pulse 65 10/25/18 04:00 Resp 16 10/25/18 04:00 BP 150/67 H 10/25/18 04:00 Pulse Ox 96 10/25/18 04:00 - Orders/Labs/Meds Orders: Active Orders 24 hr Category Date Time Status Head wo Cont [CT] Stat Exams 10/24/18 18:01 Taken CULTURE MRSA SURVEY [RM] Routine Lab 10/24/18 19:20 Received Medication Orders Aspirin (Aspirin) 81 mg PO DAILY [facility] Baclofen (Lioresal) 10 mg PO TID [facility] Clopidogrel Bisulfate (Plavix) 75 mg PO DAILY [facility] Loperamide HCl (Imodium) 2 mg PO BID PRN PRN Reason: DIARRHEA Losartan Potassium (Cozaar) 25 mg PO DAILY [facility] Rosuvastatin Calcium (Crestor) 20 mg PO BEDTIME [facility] Sertraline HCl (Zoloft) 200 mg PO DAILY [facility] Labs: Laboratory Tests 10/24/18 10/24/18 Range/Units 18:05 18:05 WBC 4.7 D (4.0-11.0) K/uL RBC 4.60 (4.50-6.50) M/uL Hgb 13.8 (13.0-18.0) g/dL Hct 41.5 (40.0-54.0) % MCV 90 (76-96) fL MCH 30.0 (27.0-32.0) pg MCHC 33.3 (31.0-35.0) g/dL RDW 14.0 (11.0-16.0) % Plt Count 135 L (150-400) K/uL MPV 10.5 H (6.0-10.0) fL Neut % (Auto) 68.3 (45.0-70.0) % Lymph % (Auto) 18.7 L (20.0-40.0) % [place] % (Auto) 10.0 (3.0-10.0) % Eos % (Auto) 2.8 (1.0-5.0) % Baso % (Auto) 0.2 (0.0-0.5) % Neut # (Auto) 3.22 (2.00-7.50) K/uL Lymph # (Auto) 0.88 L (1.50-4.00) K/uL [place] # (Auto) 0.47 (0.20-0.80) K/uL Eos # (Auto) 0.13 (0.04-0.40) K/uL Baso # (Auto) 0.01 L (0.02-0.10) K/uL Sodium 144 (136-145) mmol/L Potassium 4.1 (3.5-5.1) mmol/L Chloride 107 (98-107) mmol/L Carbon Dioxide 26.9 (21.0-32.0) mmol/L Anion Gap 14.2 (5.0-15.0) mmol/L BUN 10 D (8-26) mg/dL Creatinine 1.01 (0.70-1.30) mg/dL Est Cr Clr Drug Dosing TNP Estimated GFR (MDRD) > 60 (>60) MLS/MIN BUN/Creatinine Ratio 9.9 (6-25) Glucose 122 H (74-100) mg/dL Calcium 9.0 (8.5-10.1) mg/dL Troponin I < 0.017 (0.000-0.060) ng/mL TSH, Ultra Sensitive 2.888 D (0.358-3.740) uIU/mL Meds: Medications Generic Name Dose Route Start Last Admin Trade Name Freq PRN Reason Stop Dose Admin Aspirin 81 mg 10/25/18 08:00 Aspirin PO DAILY [facility] Baclofen 10 mg 10/25/18 08:00 Lioresal PO TID [facility] Clopidogrel Bisulfate 75 mg 10/25/18 08:00 Plavix PO DAILY [facility] Loperamide HCl 2 mg 10/24/18 20:03 Imodium PO BID PRN DIARRHEA Losartan Potassium 25 mg 10/25/18 08:00 Cozaar PO DAILY [facility] Rosuvastatin Calcium 20 mg 10/25/18 20:00 Crestor PO BEDTIME [facility] Sertraline HCl 200 mg 10/25/18 08:00 Zoloft PO DAILY [facility] Departure - Departure Time of Disposition: 20:00 Disposition: Admitted As Inpatient 67 Condition: Fair Clinical Impression: Syncope and collapse - Discharge Information - Problem List & Annotations (1) History of cerebrovascular accident (CVA) with residual deficit SNOMED Code(s): 498990812 Code(s): I69.30 - UNSPECIFIED SEQUELAE OF CEREBRAL INFARCTION Status: Acute Priority: High Current Visit: Yes (2) Syncope and collapse SNOMED Code(s): 952809250 Code(s): R55 - SYNCOPE AND COLLAPSE Status: Acute Priority: High Current Visit: Yes - Problem List Review Problem List Initiated/Reviewed/Updated: Yes - My Orders Last 24 Hours: My Active Orders 10/24/18 18:01 Head wo Cont [CT] Stat 10/24/18 19:20 CULTURE MRSA SURVEY [RM] Routine - Assessment/Plan Last 24 Hours: My Active Orders 10/24/18 18:01 Head wo Cont [CT] Stat 10/24/18 19:20 CULTURE MRSA SURVEY [RM] Routine Plan: Patient admitted for syncope and collapse. It is possible he has had another stroke. We will monitor Neurologically as patient and family would like patient to stay at this facility at this time. We will monitor for any progression of his weakness or cognitive abilities.
[2018-10-24] MEDS ORDERED: Loperamide 2 MG Cap PO PRN (20:03)
[2018-10-25] MEDS: Clopidogrel 75 MG Tab PO SCH (07:45)
[2018-10-25] MEDS: Aspirin 81 MG Tab.Chew PO SCH (07:45)
[2018-10-25] MEDS: Baclofen 10 MG Tab PO SCH ×3 (07:45→20:33)
[2018-10-25] MEDS: Sertraline 100 MG Tab PO SCH (07:45)
[2018-10-25] MEDS: Losartan 25 MG Tab PO SCH (09:07)
--- NOTE | 2018-10-25 09:32 | PCM.PN ---
- General Info Date of Service: 10/25/18 Subjective Update: Patient appears to have improved symptoms. He remains weak but his cognition has improved. He continues to have memory issues around the time of syncope. Functional Status: Reports: Tolerating Diet - Review of Systems General: Reports: Weakness HEENT: Reports: No Symptoms Pulmonary: Reports: No Symptoms Cardiovascular: Reports: No Symptoms Gastrointestinal: Reports: No Symptoms Genitourinary: Reports: No Symptoms Musculoskeletal: Reports: No Symptoms Skin: Reports: No Symptoms Neurological: Reports: Confusion, Pre-Existing Deficit, Syncope, Weakness, Gait Disturbance Psychiatric: Reports: No Symptoms - Patient Data Vitals - Most Recent: Last Vital Signs Temp 37.9 C 10/25/18 04:00 Pulse 65 10/25/18 04:00 Resp 16 10/25/18 04:00 BP 130/61 10/25/18 09:07 Pulse Ox 96 10/25/18 04:00 Weight - Most Recent: 104.961 kg Lab Results Last 24 Hours: Laboratory Results - last 24 hr 10/24/18 10/24/18 10/25/18 Range/Units 18:05 18:05 07:40 WBC 4.7 D 6.9 D (4.0-11.0) K/uL RBC 4.60 4.33 L (4.50-6.50) M/uL Hgb 13.8 12.9 L (13.0-18.0) g/dL Hct 41.5 39.0 L (40.0-54.0) % MCV 90 90 (76-96) fL MCH 30.0 29.8 (27.0-32.0) pg MCHC 33.3 33.1 (31.0-35.0) g/dL RDW 14.0 14.1 (11.0-16.0) % Plt Count 135 L 132 L (150-400) K/uL MPV 10.5 H 10.6 H (6.0-10.0) fL Neut % (Auto) 68.3 76.0 H (45.0-70.0) % Lymph % (Auto) 18.7 L 13.7 L (20.0-40.0) % [place] % (Auto) 10.0 9.3 (3.0-10.0) % Eos % (Auto) 2.8 0.9 L (1.0-5.0) % Baso % (Auto) 0.2 0.1 (0.0-0.5) % Neut # (Auto) 3.22 5.22 (2.00-7.50) K/uL Lymph # (Auto) 0.88 L 0.94 L (1.50-4.00) K/uL [place] # (Auto) 0.47 0.64 (0.20-0.80) K/uL Eos # (Auto) 0.13 0.06 (0.04-0.40) K/uL Baso # (Auto) 0.01 L 0.01 L (0.02-0.10) K/uL Sodium 144 (136-145) mmol/L Potassium 4.1 (3.5-5.1) mmol/L Chloride 107 (98-107) mmol/L Carbon Dioxide 26.9 (21.0-32.0) mmol/L Anion Gap 14.2 (5.0-15.0) mmol/L BUN 10 D (8-26) mg/dL Creatinine 1.01 (0.70-1.30) mg/dL Est Cr Clr Drug Dosing TNP Estimated GFR (MDRD) > 60 (>60) MLS/MIN BUN/Creatinine Ratio 9.9 (6-25) Glucose 122 H (74-100) mg/dL Calcium 9.0 (8.5-10.1) mg/dL Total Bilirubin (0.0-1.0) mg/dL AST (15-37) U/L ALT (12-78) U/L Alkaline Phosphatase (46-116) U/L Troponin I < 0.017 (0.000-0.060) ng/mL Total Protein (6.4-8.2) g/dL Albumin (3.4-5.0) g/dL Globulin (2.2-4.2) g/dL Albumin/Globulin Ratio (0.8-2.0) TSH, Ultra Sensitive 2.888 D (0.358-3.740) uIU/mL 10/25/18 Range/Units 07:40 WBC (4.0-11.0) K/uL RBC (4.50-6.50) M/uL Hgb (13.0-18.0) g/dL Hct (40.0-54.0) % MCV (76-96) fL MCH (27.0-32.0) pg MCHC (31.0-35.0) g/dL RDW (11.0-16.0) % Plt Count (150-400) K/uL MPV (6.0-10.0) fL Neut % (Auto) (45.0-70.0) % Lymph % (Auto) (20.0-40.0) % [place] % (Auto) (3.0-10.0) % Eos % (Auto) (1.0-5.0) % Baso % (Auto) (0.0-0.5) % Neut # (Auto) (2.00-7.50) K/uL Lymph # (Auto) (1.50-4.00) K/uL [place] # (Auto) (0.20-0.80) K/uL Eos # (Auto) (0.04-0.40) K/uL Baso # (Auto) (0.02-0.10) K/uL Sodium 141 (136-145) mmol/L Potassium 4.1 (3.5-5.1) mmol/L Chloride 104 (98-107) mmol/L Carbon Dioxide 25.8 (21.0-32.0) mmol/L Anion Gap 15.3 H (5.0-15.0) mmol/L BUN 11 (8-26) mg/dL Creatinine 0.87 (0.70-1.30) mg/dL Est Cr Clr Drug Dosing TNP Estimated GFR (MDRD) > 60 (>60) MLS/MIN BUN/Creatinine Ratio 12.6 (6-25) Glucose 109 H (74-100) mg/dL Calcium 8.8 (8.5-10.1) mg/dL Total Bilirubin 0.5 D (0.0-1.0) mg/dL AST 22 (15-37) U/L ALT 31 (12-78) U/L Alkaline Phosphatase 74 (46-116) U/L Troponin I (0.000-0.060) ng/mL Total Protein 6.8 (6.4-8.2) g/dL Albumin 3.8 (3.4-5.0) g/dL Globulin 3.0 (2.2-4.2) g/dL Albumin/Globulin Ratio 1.3 (0.8-2.0) TSH, Ultra Sensitive (0.358-3.740) uIU/mL Med Orders - Current: Current Medications Aspirin (Aspirin) 81 mg PO DAILY [facility] Last Admin: 10/25/18 07:45 Dose: 81 mg Baclofen (Lioresal) 10 mg PO TID [facility] Last Admin: 10/25/18 07:45 Dose: 10 mg Clopidogrel Bisulfate (Plavix) 75 mg PO DAILY [facility] Last Admin: 10/25/18 07:45 Dose: 75 mg Loperamide HCl (Imodium) 2 mg PO BID PRN PRN Reason: DIARRHEA Losartan Potassium (Cozaar) 25 mg PO DAILY [facility] Last Admin: 10/25/18 09:07 Dose: 25 mg Rosuvastatin Calcium (Crestor) 20 mg PO BEDTIME [facility] Sertraline HCl (Zoloft) 200 mg PO DAILY [facility] Last Admin: 10/25/18 07:45 Dose: 200 mg - Exam General: Alert, Cooperative, Other (confused on date) HEENT: Pupils Equal, Pupils Reactive, EOMI Neck: Supple Lungs: Clear to Auscultation, Normal Respiratory Effort Cardiovascular: Regular Rate, Regular Rhythm GI/Abdominal Exam: Normal Bowel Sounds, Soft, Non-Tender Back Exam: Normal Inspection Extremities: Other (left hemiplegia - baseline hemiplegia from prior CVA) - Problem List & Annotations (1) History of cerebrovascular accident (CVA) with residual deficit SNOMED Code(s): 954406267 Code(s): I69.30 - UNSPECIFIED SEQUELAE OF CEREBRAL INFARCTION Status: Acute Priority: High Current Visit: Yes (2) Syncope and collapse SNOMED Code(s): 416871315 Code(s): R55 - SYNCOPE AND COLLAPSE Status: Acute Priority: High Current Visit: Yes - Problem List Review Problem List Initiated/Reviewed/Updated: Yes - My Orders Last 24 Hours: My Active Orders 10/24/18 18:01 Head wo Cont [CT] Stat 10/24/18 19:20 CULTURE MRSA SURVEY [RM] Routine 10/24/18 20:02 Patient Status [ADT] Routine Vital Signs [RC] Q4H 10/24/18 20:03 Loperamide [Imodium] 2 mg PO BID PRN 10/24/18 20:05 Neuro Check [RC] 00,08,16 10/24/18 22:29 Code Status [Resuscitation Status] Routine 10/25/18 08:00 Aspirin 81 mg PO DAILY Baclofen [Lioresal] 10 mg PO TID Clopidogrel [Plavix] 75 mg PO DAILY Losartan [Cozaar] 25 mg PO DAILY Sertraline [Zoloft] 200 mg PO DAILY 10/25/18 20:00 Rosuvastatin [Crestor] 20 mg PO BEDTIME - Plan Plan:: Patient to continue current Neuro check and monitoring. F/u labs. No other changes at this time. PT/OT evaluation and management for new onset weakness and difficulty walking.
--- NOTE | 2018-10-25 11:26 | CT ---
DATE OF SERVICE: 10/24/18 CLINICAL DATA: syncope UNENHANCED BRAIN CT: Multislice acquisition through the brain without IV contrast was performed. Comparison is made to a prior exam dated 07/21/17. There is diffuse cerebral atrophy. There is a ventriculostomy catheter in place with its distal tip in the right ventricle near the foramen of Monro. There is a large area of encephalomalacia involving the right middle cerebral artery distribution consistent with the prior infarct. It is unchanged from the prior exam. There is diffuse cerebral atrophy. There is lateral, third, and fourth ventriculomegaly with increase in size of the ventricles from the prior study. There are periventricular lucencies bilaterally consistent with small vessel ischemic change. No masses or mass effect. No intracranial hemorrhage. No evidence of acute or subacute infarct. There are craniotomy defects on the right. IMPRESSION: Increasing ventriculomegaly suspicious for shunt failure. No acute abnormalities. [id number] [facility]
--- NOTE | 2018-10-25 17:17 | CR ---
CLINICAL DATA: Fever. PA CHEST, 2018: Comparison is made to a prior exam dated 10 Jun 2015. The patient has taken a poor inspiration. The heart size is at the upper limits of normal. The aorta is ectatic. The lungs are clear. No pneumothorax. No pleural effusions. No evidence of acute intrathoracic disease. Job: [id number]
[2018-10-25] MEDS: Rosuvastatin 20 MG Tab PO SCH (20:33)
[2018-10-26] MEDS: Aspirin 81 MG Tab.Chew PO SCH (07:28)
[2018-10-26] MEDS: Losartan 25 MG Tab PO SCH (07:28)
[2018-10-26] MEDS: Sertraline 100 MG Tab PO SCH (07:28)
[2018-10-26] MEDS: Clopidogrel 75 MG Tab PO SCH (07:28)
[2018-10-26] MEDS: Baclofen 10 MG Tab PO SCH ×3 (07:28→19:51)
[2018-10-26] MEDS: Benzonatate 100 MG Cap PO PRN ×2 (09:45→18:28)
--- NOTE | 2018-10-26 09:51 | PCM.PN ---
- General Info Date of Service: 10/26/18 Subjective Update: Pt is running a temp of 101.4F today. HE has been feeding well. On questioning patient about ambulation, he claims he uses walker at home and he can use the walker for ambulation now. He is slightly weaker then before. Apparently patient claims he has had cough for a while now at least 3 months which is minimally productive and intermittent. . No wheezing or shortness of breath. No dysuria. Tolerating diet. Functional Status: Reports: Pain Controlled, Tolerating Diet, Ambulating, Urinating - Review of Systems General: Reports: Fever, Weakness. Denies: Malaise, Chills HEENT: Denies: Sinus Congestion, Sore Throat Pulmonary: Reports: Cough. Denies: Shortness of Breath, Sputum, Hemoptysis Gastrointestinal: Denies: Abdominal Pain, Nausea, Vomiting Musculoskeletal: Denies: Joint Pain, Joint Swelling Skin: Denies: Bruising, Pruritis, Rash Neurological: Reports: Pre-Existing Deficit (from previous stroke). Denies: Headache, Numbness, Tingling Psychiatric: Denies: Confusion, Mood Lability, Anxiety - Patient Data Vitals - Most Recent: Last Vital Signs Temp 97.4 F 10/26/18 04:00 Pulse 63 10/26/18 04:00 Resp 20 10/26/18 04:00 BP 133/76 10/26/18 07:28 Pulse Ox 93 L 10/26/18 04:00 Weight - Most Recent: 104.961 kg Lab Results Last 24 Hours: Laboratory Results - last 24 hr 10/25/18 10/26/18 Range/Units Unknown 09:30 WBC 7.0 (4.0-11.0) K/uL RBC 4.49 L (4.50-6.50) M/uL Hgb 13.4 (13.0-18.0) g/dL Hct 40.9 (40.0-54.0) % MCV 91 (76-96) fL MCH 29.8 (27.0-32.0) pg MCHC 32.8 (31.0-35.0) g/dL RDW 14.2 (11.0-16.0) % Plt Count 123 L (150-400) K/uL MPV 10.1 H (6.0-10.0) fL Neut % (Auto) 81.4 H (45.0-70.0) % Lymph % (Auto) 13.9 L (20.0-40.0) % [place] % (Auto) 4.0 (3.0-10.0) % Eos % (Auto) 0.6 L (1.0-5.0) % Baso % (Auto) 0.1 (0.0-0.5) % Neut # (Auto) 5.67 (2.00-7.50) K/uL Lymph # (Auto) 0.97 L (1.50-4.00) K/uL [place] # (Auto) 0.28 (0.20-0.80) K/uL Eos # (Auto) 0.04 (0.04-0.40) K/uL Baso # (Auto) 0.01 L (0.02-0.10) K/uL Urine Color Yellow Urine Appearance Clear (CLEAR) Urine pH 5.0 (5.0-8.0) Ur Specific [place] 1.025 (1.003-1.030) Urine Protein Negative (NEGATIVE) mg/dL Urine Glucose (UA) Negative (NEGATIVE) mg/dL Urine Ketones Negative (NEGATIVE) mg/dL Urine Occult Blood Negative (NEGATIVE) Urine Nitrite Negative (NEGATIVE) Urine Bilirubin Negative (NEGATIVE) Urine Urobilinogen 0.2 (0.2-1.0) E.U./dL Ur Leukocyte Esterase Negative (NEGATIVE) Med Orders - Current: Current Medications Aspirin (Aspirin) 81 mg PO DAILY [facility] Last Admin: 10/26/18 07:28 Dose: 81 mg Baclofen (Lioresal) 10 mg PO TID [facility] Last Admin: 10/26/18 07:28 Dose: 10 mg Benzonatate (Tessalon Perles) 100 mg PO Q4H PRN PRN Reason: Cough Clopidogrel Bisulfate (Plavix) 75 mg PO DAILY [facility] Last Admin: 10/26/18 07:28 Dose: 75 mg Loperamide HCl (Imodium) 2 mg PO BID PRN PRN Reason: DIARRHEA Losartan Potassium (Cozaar) 25 mg PO DAILY [facility] Last Admin: 10/26/18 07:28 Dose: 25 mg Rosuvastatin Calcium (Crestor) 20 mg PO BEDTIME [facility] Last Admin: 10/25/18 20:33 Dose: 20 mg Sertraline HCl (Zoloft) 200 mg PO DAILY [facility] Last Admin: 10/26/18 07:28 Dose: 200 mg - Exam General: Alert, Oriented, Cooperative HEENT: Pupils Equal, Pupils Reactive, EOMI, Mucous Membr. Moist/[place] Neck: Supple Lungs: Clear to Auscultation, Normal Respiratory Effort Cardiovascular: Regular Rate, Regular Rhythm GI/Abdominal Exam: Normal Bowel Sounds, Soft, Non-Tender, No Organomegaly, No Distention, No Abnormal Bruit, No Mass, Pelvis Stable Extremities: Normal Inspection, Normal Range of Motion, Non-Tender, No Pedal Edema, Normal Capillary Refill Skin: Warm Neurological: No New Focal Deficit - Problem List & Annotations (1) Syncope and collapse SNOMED Code(s): 702517422 Code(s): R55 - SYNCOPE AND COLLAPSE Status: Acute Priority: High Current Visit: Yes - Problem List Review Problem List Initiated/Reviewed/Updated: Yes - Assessment Assessment:: Questionable TIA - Plan Plan:: Patient to continue current Neuro check and monitoring. F/u labs. No other changes at this time. PT/OT evaluation and management for new onset weakness and difficulty walking. 10/26/2008 Pt is doing well . He is able to ambulate with his walker, which is his baseline , he is weak. His slight weakness might be related to his fever. He is alert and oriented. Tolerating diet. His vitals are stable other then low grade fever. His CBC is normal, his UA is negative and his Chest X-ray is normal. This does not appear like UTI or pneumonia. He has had chronic mild cough on going, might have viral bronchitis. He is on [employer] pearls. Also from talking to patient. It does appear like micturition reflex causing his initial symptoms, which is not unusual considering patient history and presentation. Workup for Acute stroke appears negative . This could be TIA, but there has not been any reoccurrence in the hospital. As planned will start OT and PT on Sunday .
[2018-10-26] MEDS ORDERED: Naproxen 250 MG Tab ONE (13:18)
[2018-10-26] MEDS ORDERED: Naproxen 250 MG Tab PO ONE (13:22)
[2018-10-26] MEDS: Rosuvastatin 20 MG Tab PO SCH (19:51)
[2018-10-27] MEDS ORDERED: Naproxen 500 MG Tab PO PRN
[2018-10-27] MEDS: Benzonatate 100 MG Cap PO PRN ×3 (06:15→23:55)
[2018-10-27] MEDS: Aspirin 81 MG Tab.Chew PO SCH (09:11)
[2018-10-27] MEDS: Clopidogrel 75 MG Tab PO SCH (09:11)
[2018-10-27] MEDS: Baclofen 10 MG Tab PO SCH ×3 (09:12→20:09)
[2018-10-27] MEDS: Sertraline 100 MG Tab PO SCH (09:12)
[2018-10-27] MEDS: Losartan 25 MG Tab PO SCH (09:12)
--- NOTE | 2018-10-27 11:14 | PCM.PN ---
- General Info Date of Service: 10/27/18 Subjective Update: Pt is feeling better today. he has been afebrile. tolerating diet. Still feels weak with mobility. No other complaints Functional Status: Reports: Pain Controlled, Tolerating Diet, Urinating - Review of Systems General: Reports: Weakness. Denies: Fever, Chills HEENT: Denies: Sinus Congestion, Rhinitis Pulmonary: Denies: Shortness of Breath, Cough, Sputum, Hemoptysis Cardiovascular: Denies: Chest Pain, Palpitations, Lightheadedness Gastrointestinal: Denies: Abdominal Pain, Diarrhea, Nausea, Vomiting Genitourinary: Denies: Dysuria, Frequency Musculoskeletal: Denies: Joint Pain, Joint Swelling Skin: Denies: Bruising, Pruritis, Rash Neurological: Reports: Pre-Existing Deficit (from previous stroke). Denies: Confusion, Dizziness, Headache, Numbness, Tingling - Patient Data Vitals - Most Recent: Last Vital Signs Temp 100.4 F 10/27/18 04:00 Pulse 62 10/27/18 04:00 Resp 18 10/27/18 04:00 BP 120/81 10/27/18 09:12 Pulse Ox 95 10/27/18 00:00 Weight - Most Recent: 104.961 kg Pedro Results Last 24 Hours: Microbiology 10/24/18 19:20 MRSA Surveillance Culture - Final Nares, Unspecified NO MRSA ISOLATED Med Orders - Current: Current Medications Aspirin (Aspirin) 81 mg PO DAILY [facility] Last Admin: 10/27/18 09:11 Dose: 81 mg Baclofen (Lioresal) 10 mg PO TID [facility] Last Admin: 10/27/18 09:12 Dose: 10 mg Benzonatate (Tessalon Perles) 100 mg PO Q4H PRN PRN Reason: Cough Last Admin: 10/27/18 06:15 Dose: 100 mg Clopidogrel Bisulfate (Plavix) 75 mg PO DAILY [facility] Last Admin: 10/27/18 09:11 Dose: 75 mg Loperamide HCl (Imodium) 2 mg PO BID PRN PRN Reason: DIARRHEA Losartan Potassium (Cozaar) 25 mg PO DAILY [facility] Last Admin: 10/27/18 09:12 Dose: 25 mg Naproxen (Naprosyn) 500 mg PO BID PRN PRN Reason: Fever Rosuvastatin Calcium (Crestor) 20 mg PO BEDTIME [facility] Last Admin: 10/26/18 19:51 Dose: 20 mg Sertraline HCl (Zoloft) 200 mg PO DAILY [facility] Last Admin: 10/27/18 09:12 Dose: 200 mg Discontinued Medications Naproxen (Naprosyn) Confirm Administered Dose 250 mg .ROUTE .STK-MED ONE Stop: 10/26/18 13:19 Last Admin: 10/26/18 14:17 Dose: Not Given Naproxen (Naprosyn) 250 mg PO ONETIME ONE Stop: 10/26/18 13:23 Last Admin: 10/26/18 13:25 Dose: 250 mg - Exam General: Alert, Oriented, Cooperative HEENT: Pupils Equal, Pupils Reactive, EOMI, Mucous Membr. Moist/[place] Neck: Supple Lungs: Clear to Auscultation, Normal Respiratory Effort Cardiovascular: Regular Rate, Regular Rhythm Extremities: Normal Inspection, Normal Range of Motion, Non-Tender, No Pedal Edema, Normal Capillary Refill Skin: Warm Neurological: No New Focal Deficit - Problem List & Annotations (1) Syncope and collapse SNOMED Code(s): 566279655 Code(s): R55 - SYNCOPE AND COLLAPSE Status: Acute Priority: High Current Visit: Yes - Problem List Review Problem List Initiated/Reviewed/Updated: Yes - My Orders Last 24 Hours: My Active Orders 10/27/18 00:00 Naproxen [Naprosyn] 500 mg PO BID PRN - Assessment Assessment:: Questionable TIA - Plan Plan:: Patient to continue current Neuro check and monitoring. F/u labs. No other changes at this time. PT/OT evaluation and management for new onset weakness and difficulty walking. 10/26/2008 Pt is doing well . He is able to ambulate with his walker, which is his baseline , he is weak. His slight weakness might be related to his fever. He is alert and oriented. Tolerating diet. His vitals are stable other then low grade fever. His CBC is normal, his UA is negative and his Chest X-ray is normal. This does not appear like UTI or pneumonia. He has had chronic mild cough on going, might have viral bronchitis. He is on Tessalon pearls. Also from talking to patient. It does appear like micturition reflex causing his initial symptoms, which is not unusual considering patient history and presentation. Workup for Acute stroke appears negative . This could be TIA, but there has not been any reoccurrence in the hospital. As planned will start OT and PT on Sunday . 10/27/18 Pt is doing better. He has been afebrile since last night. His Chest X-ray, UA and CBC are normal. Pt probably had nonspecific fever. He still c/o weakness, more so generalized. Will have OT and PT tomorrow started, and will swing him tomorrow as he needs therapy at this point.
[2018-10-27] MEDS: Rosuvastatin 20 MG Tab PO SCH (20:09)
[2018-10-27] MEDS: guaiFENesin 100 MG/5 ML Soln 10 ML UD Cup PO PRN (21:41)
[2018-10-28] MEDS: Aspirin 81 MG Tab.Chew PO SCH (08:01)
[2018-10-28] MEDS: Baclofen 10 MG Tab PO SCH ×3 (08:03→19:49)
[2018-10-28] MEDS: Sertraline 100 MG Tab PO SCH (08:03)
[2018-10-28] MEDS: Clopidogrel 75 MG Tab PO SCH (08:03)
[2018-10-28] MEDS: Losartan 25 MG Tab PO SCH (08:06)
[2018-10-28] MEDS: guaiFENesin 100 MG/5 ML Soln 10 ML UD Cup PO PRN ×2 (11:42→19:50)
[2018-10-28] MEDS: Albuterol/Ipratropium 3.0-0.5 MG/3 ML Neb Soln NEB PRN ×2 (15:48→19:50)
--- NOTE | 2018-10-28 16:44 | PCM.PN ---
- General Info Date of Service: 10/28/18 Subjective Update: Pt has remained afebrile. Has been feeding well. Has been ambulating with assistance. HE did have large bowel movements yesterday an following which he felt weak and dizzy appears like vasovagal episodes, resolved. Pt claims he is feeling fine, but has some proximal muscle weakness in the extremities. Functional Status: Reports: Pain Controlled, Tolerating Diet, Ambulating, Urinating - Review of Systems General: Reports: Weakness. Denies: Fever, Chills HEENT: Denies: Sinus Congestion, Rhinitis Pulmonary: Reports: Cough. Denies: Shortness of Breath, Pleuritic Chest Pain, Sputum, Hemoptysis Cardiovascular: Denies: Chest Pain, Lightheadedness Gastrointestinal: Denies: Abdominal Pain, Nausea, Vomiting Genitourinary: Denies: Frequency, Flank Pain Skin: Denies: Bruising, Pruritis, Rash Neurological: Reports: Pre-Existing Deficit - Patient Data Vitals - Most Recent: Last Vital Signs Temp 99.5 F 10/28/18 04:02 Pulse 66 10/28/18 09:00 Resp 18 10/28/18 09:00 BP 113/64 10/28/18 09:00 Pulse Ox 93 L 10/28/18 09:00 Weight - Most Recent: 104.78 kg Med Orders - Current: Current Medications Albuterol/Ipratropium (Duoneb 3.0-0.5 Mg/3 Ml) 3 ml NEB Q4H PRN PRN Reason: Dyspnea Last Admin: 10/28/18 15:48 Dose: 3 ml Aspirin (Aspirin) 81 mg PO DAILY [facility] Last Admin: 10/28/18 08:01 Dose: 81 mg Baclofen (Lioresal) 10 mg PO TID [facility] Last Admin: 10/28/18 14:56 Dose: 10 mg Benzonatate (Tessalon Perles) 100 mg PO Q4H PRN PRN Reason: Cough Last Admin: 10/27/18 23:55 Dose: 100 mg Clopidogrel Bisulfate (Plavix) 75 mg PO DAILY [facility] Last Admin: 10/28/18 08:03 Dose: 75 mg Guaifenesin (Robitussin) 200 mg PO Q6H PRN PRN Reason: Cough Last Admin: 10/28/18 11:42 Dose: 200 mg Loperamide HCl (Imodium) 2 mg PO BID PRN PRN Reason: DIARRHEA Losartan Potassium (Cozaar) 25 mg PO DAILY [facility] Last Admin: 10/28/18 08:06 Dose: 25 mg Naproxen (Naprosyn) 500 mg PO BID PRN PRN Reason: Fever Last Admin: 10/27/18 20:09 Dose: 500 mg Rosuvastatin Calcium (Crestor) 20 mg PO BEDTIME [facility] Last Admin: 10/27/18 20:09 Dose: 20 mg Sertraline HCl (Zoloft) 200 mg PO DAILY [facility] Last Admin: 10/28/18 08:03 Dose: 200 mg Discontinued Medications Naproxen (Naprosyn) Confirm Administered Dose 250 mg .ROUTE .STK-MED ONE Stop: 10/26/18 13:19 Last Admin: 10/26/18 14:17 Dose: Not Given Naproxen (Naprosyn) 250 mg PO ONETIME ONE Stop: 10/26/18 13:23 Last Admin: 10/26/18 13:25 Dose: 250 mg - Exam General: Alert, Oriented HEENT: Pupils Equal, Pupils Reactive, EOMI, Mucous Membr. Moist/[place] Neck: Supple Lungs: Clear to Auscultation, Normal Respiratory Effort Cardiovascular: Regular Rate GI/Abdominal Exam: Normal Bowel Sounds, Soft, Non-Tender, No Organomegaly, No Distention, No Abnormal Bruit, No Mass, Pelvis Stable Extremities: Normal Inspection, Normal Range of Motion, Non-Tender, No Pedal Edema, Normal Capillary Refill Skin: Warm, Intact Neurological: No New Focal Deficit - Problem List & Annotations (1) Syncope and collapse SNOMED Code(s): 228795935 Code(s): R55 - SYNCOPE AND COLLAPSE Status: Acute Priority: High Current Visit: Yes - Problem List Review Problem List Initiated/Reviewed/Updated: Yes - My Orders Last 24 Hours: My Active Orders 10/27/18 21:26 guaiFENesin [Robitussin] 200 mg PO Q6H PRN 10/28/18 10:40 Consult to Physical Therapy [PT Evaluation and Treatment] [CONS] Routine 10/28/18 10:41 Consult to Occupational Therapy [OT Evaluation and Treatment] [CONS] Routine 10/28/18 15:37 Albuterol/Ipratropium [DuoNeb 3.0-0.5 MG/3 ML] 3 ml NEB Q4H PRN 10/28/18 15:38 RT Aerosol Therapy [RC] ASDIRECTED - Assessment Assessment:: Questionable TIA with weakness - Plan Plan:: Patient to continue current Neuro check and monitoring. F/u labs. No other changes at this time. PT/OT evaluation and management for new onset weakness and difficulty walking. 10/26/2008 Pt is doing well . He is able to ambulate with his walker, which is his baseline , he is weak. His slight weakness might be related to his fever. He is alert and oriented. Tolerating diet. His vitals are stable other then low grade fever. His CBC is normal, his UA is negative and his Chest X-ray is normal. This does not appear like UTI or pneumonia. He has had chronic mild cough on going, might have viral bronchitis. He is on Tessalon pearls. Also from talking to patient. It does appear like micturition reflex causing his initial symptoms, which is not unusual considering patient history and presentation. Workup for Acute stroke appears negative . This could be TIA, but there has not been any reoccurrence in the hospital. As planned will start OT and PT on Sunday . 10/27/18 Pt is doing better. He has been afebrile since last night. His Chest X-ray, UA and CBC are normal. Pt probably had nonspecific fever. He still c/o weakness, more so generalized. Will have OT and PT tomorrow started, and will swing him tomorrow as he needs therapy at this point. 10/28/18 Pt has been doing well.Afebrile. Nonspecific cough. Had a short episode of vasovagal episode after having large bowel movement yesterday. Pt has been evaluated by OT and PT today and they do think patient needs a week for strengthening and to get to level of ADLs that he can be managed at home. Presently waiting on Insurance clearance.
[2018-10-28] MEDS: Benzonatate 100 MG Cap PO PRN (19:50)
[2018-10-28] MEDS: Rosuvastatin 20 MG Tab PO SCH (19:50)
[2018-10-29] MEDS: Benzonatate 100 MG Cap PO PRN ×2 (04:46→13:34)
[2018-10-29] MEDS: guaiFENesin 100 MG/5 ML Soln 10 ML UD Cup PO PRN ×2 (04:46→13:35)
[2018-10-29] MEDS: Aspirin 81 MG Tab.Chew PO SCH (07:49)
[2018-10-29] MEDS: Losartan 25 MG Tab PO SCH (07:50)
[2018-10-29] MEDS: Clopidogrel 75 MG Tab PO SCH (07:50)
[2018-10-29] MEDS: Baclofen 10 MG Tab PO SCH ×2 (07:50→13:32)
[2018-10-29] MEDS: Albuterol/Ipratropium 3.0-0.5 MG/3 ML Neb Soln NEB PRN (07:51)
[2018-10-29] MEDS: Sertraline 100 MG Tab PO SCH (07:57)
[2018-10-29 11:48] VITALS: BP 104/61; PULSE 70
--- NOTE | 2018-10-29 16:27 | PCM.DCSUM1 ---
Discharge Summary - Hospital Course Free Text/Narrative:: Pt was admitted to hospital for monitoring for TIA a he had episode of syncope at home while using the bathroom. During the hospital stay he has been weak and needing significant assistance with mobility and ADLS. Patient has had a uneventful stay, as for as stroke is concerned. He had low grade fever for a day. At which point chest x-ray was done and UA and CBC checked. All the workup was negative. Hence he was started on Aleve for fever control and patient was afebrile within 24 hrs. He has been feeding well. His weakness appears to be related to aging with his old stroke. PT and OT evaluation was done and they feel he needs some strengthening and exercises to help with his ADLS on discharge. Hence patient has been admitted to [facility] level of care as of today. Brief History: Pt had syncope of 10/24/18 admitted for Neuro monitoring with diagnosis of TIA. Kindly see H&P for details Diagnosis: Stroke: No - Discharge Data Discharge Date: 10/29/18 Discharge Disposition: DC/Tfer W/I Hosp To [place] [id number] Condition: Stable - Referral to Home Health Primary Care Physician: PCP None - Patient Summary/Data Consults: Consultations 10/29/18 15:16 OT Evaluation and Treatment [CONS] Routine Please Evaluate and Treat. OT Reason for Consult: ADL's This query below is only for informational purposes and is not editable. Admission Diagnosis/Problem: Pain management PT Evaluation and Treatment [CONS] Routine Please Evaluate and Treat. PT Reason for Consult: Strengthening This query below is only for informational purposes and is not editable. Admission Diagnosis/Problem: Pain management - Patient Instructions Diet: Heart Healthy Diet Fluid Restriction: 1500 mL Activity: As Tolerated Showering/Bathing: May Shower - Discharge Plan *PRESCRIPTION DRUG MONITORING PROGRAM REVIEWED*: Not Applicable *COPY OF PRESCRIPTION DRUG MONITORING REPORT IN PATIENT SHAKILA: Not Applicable Home Medications: Home Meds Sertraline HCl 200 mg PO DAILY 10/28/12 [History] Baclofen [Lioresal] 10 mg PO TID tablet 02/12/17 [Rx] Clopidogrel [Plavix] 75 mg PO DAILY tablet 02/12/17 [Rx] Loperamide [Imodium] 2 mg PO BID PRN cap 02/12/17 [Rx] Losartan [Cozaar] 25 mg PO DAILY tablet 01/08/18 [Rx] Rosuvastatin [Crestor] 20 mg PO BEDTIME tablet 02/12/17 [Rx] Aspirin 81 mg PO DAILY 07/21/17 [History] Albuterol/Ipratropium [DuoNeb 3.0-0.5 MG/3 ML] 3 ml NEB Q8H PRN neb 10/29/18 [ Rx] Forms: ED Department Discharge Referrals: PCP,None [Primary Care Provider] - - Discharge Summary/Plan Comment DC Time >30 min.: Yes - General Info Date of Service: 10/29/18 Functional Status: Reports: Pain Controlled, Tolerating Diet, Ambulating, Urinating - Review of Systems General: Reports: Weakness. Denies: Fever, Chills HEENT: Denies: Sinus Congestion, Sore Throat, Rhinitis Pulmonary: Reports: Cough (chronic). Denies: Shortness of Breath, Sputum, Hemoptysis Cardiovascular: Denies: Chest Pain, Palpitations Gastrointestinal: Denies: Abdominal Pain, Constipation, Nausea, Vomiting Genitourinary: Denies: Dysuria, Frequency Musculoskeletal: Denies: Joint Pain, Joint Swelling Skin: Denies: Bruising, Pruritis, Rash Neurological: Reports: Pre-Existing Deficit - Patient Data Med Orders - Current: Current Medications Albuterol/Ipratropium (Duoneb 3.0-0.5 Mg/3 Ml) 3 ml NEB Q8H PRN PRN Reason: Shortness of Breath Aspirin (Aspirin) 81 mg PO DAILY [facility] Baclofen (Lioresal) 10 mg PO TID [facility] Clopidogrel Bisulfate (Plavix) 75 mg PO DAILY [facility] Loperamide HCl (Imodium) 2 mg PO BID PRN PRN Reason: DIARRHEA Losartan Potassium (Cozaar) 25 mg PO DAILY [facility] Rosuvastatin Calcium (Crestor) 20 mg PO BEDTIME [facility] Sertraline HCl (Zoloft) 200 mg PO DAILY [facility] Discontinued Medications Tuberculin PPD (Aplisol) 5 unit IDERM ONETIME ONE Stop: 10/29/18 15:16 Last Admin: 10/29/18 16:05 Dose: Not Given - Exam General: Reports: Alert, Oriented HEENT: Reports: Pupils Equal, Pupils Reactive, EOMI, Mucous Membr. Moist/[place] Neck: Reports: Supple Lungs: Reports: Clear to Auscultation, Normal Respiratory Effort Cardiovascular: Reports: Regular Rate, Regular Rhythm GI/Abdominal Exam: Normal Bowel Sounds, Soft, Non-Tender, No Organomegaly, No Distention, No Abnormal Bruit, No Mass, Pelvis Stable (Male) Exam: No Hernia, Normal Inspection, Normal Prostate, Circumcised Back Exam: Reports: Normal Inspection, Full Range of Motion Extremities: Normal Inspection, Normal Range of Motion, Non-Tender, No Pedal Edema, Normal Capillary Refill Skin: Reports: Warm, Intact Neurological: Reports: No New Focal Deficit
== END 2018-10-29 15:26 | disposition swing bed (61) | DRG 69 ==
LOC: LB.ED 17:51 → UNDOADMIN 19:00 → LB.MS 19:00 → LB.ED 19:07 → LB.MS 20:02
PROVIDERS: ADMIT Family Medicine; ATTEND Family Medicine
DX: G45.9 Transient cerebral ischemic attack, unspecified (principal); R41.82 Altered mental status, unspecified; H54.7 Unspecified visual loss; E78.00 Pure hypercholesterolemia, unspecified; R06.02 Shortness of breath; I10 Essential (primary) hypertension; G47.30 Sleep apnea, unspecified; Z79.01 Long term (current) use of anticoagulants; F41.9 Anxiety disorder, unspecified; F32.9 Major depressive disorder, single episode, unspecified; W18.11XA Fall from or off toilet without subsequent striking against object, initial encounter; R32 Unspecified urinary incontinence; Z79.82 Long term (current) use of aspirin; Z88.6 Allergy status to analgesic agent; Z88.5 Allergy status to narcotic agent; Z88.2 Allergy status to sulfonamides; Z88.8 Allergy status to other drugs, medicaments and biological substances; Z86.73 Personal history of transient ischemic attack (TIA), and cerebral infarction without residual deficits; Z79.899 Other long term (current) drug therapy; Z98.890 Other specified postprocedural states
CPT/HCPCS: 36415; 70450; 71045; 80048; 80053; 81003; 84443; 84484; 85025; 97110-GP; 97161-GP; 97165-GO; 97530-GO; 97530-GP; 99285-25; A0425; A0429; A9270-GY; J7620-GY

== ENCOUNTER 2018-10-29 15:08 | Inpatient (IN) | payer MEDICARE ==
[2018-10-29] MEDS ORDERED: Tuberculin, PPD 5 Units/0.1 ML 1 ML MDV IDERM ONE (15:15)
[2018-10-29] MEDS ORDERED: Loperamide 2 MG Cap PO PRN (15:17)
[2018-10-29] MEDS: Benzonatate 100 MG Cap PO PRN (19:57)
[2018-10-29] MEDS: Rosuvastatin 20 MG Tab PO SCH (19:57)
[2018-10-29] MEDS: Baclofen 10 MG Tab PO SCH (19:57)
[2018-10-29] MEDS: guaiFENesin 100 MG/5 ML Soln 10 ML UD Cup PO PRN (19:57)
[2018-10-29] MEDS: Albuterol/Ipratropium 3.0-0.5 MG/3 ML Neb Soln NEB PRN (19:58)
[2018-10-30] MEDS: Aspirin 81 MG Tab.Chew PO SCH (07:16)
[2018-10-30] MEDS: Baclofen 10 MG Tab PO SCH ×3 (07:16→19:53)
[2018-10-30] MEDS: Clopidogrel 75 MG Tab PO SCH (07:16)
[2018-10-30] MEDS: Losartan 25 MG Tab PO SCH (07:16)
[2018-10-30] MEDS: Sertraline 100 MG Tab PO SCH (07:16)
[2018-10-30] MEDS: Benzonatate 100 MG Cap PO PRN ×2 (13:16→19:53)
[2018-10-30] MEDS: guaiFENesin 100 MG/5 ML Soln 10 ML UD Cup PO PRN ×2 (13:16→19:53)
[2018-10-30] MEDS: Albuterol/Ipratropium 3.0-0.5 MG/3 ML Neb Soln NEB PRN (19:53)
[2018-10-30] MEDS: Rosuvastatin 20 MG Tab PO SCH (19:53)
[2018-10-30] MEDS: Naproxen 500 MG Tab PO PRN (22:40)
[2018-10-31] MEDS: Aspirin 81 MG Tab.Chew PO SCH (07:22)
[2018-10-31] MEDS: Clopidogrel 75 MG Tab PO SCH (07:22)
[2018-10-31] MEDS: Losartan 25 MG Tab PO SCH (07:22)
[2018-10-31] MEDS: Sertraline 100 MG Tab PO SCH (07:22)
[2018-10-31] MEDS: Baclofen 10 MG Tab PO SCH ×3 (07:24→19:59)
[2018-10-31] MEDS: Benzonatate 100 MG Cap PO PRN ×2 (11:41→19:59)
[2018-10-31] MEDS: guaiFENesin 100 MG/5 ML Soln 10 ML UD Cup PO PRN ×2 (11:41→19:59)
[2018-10-31] MEDS: Albuterol/Ipratropium 3.0-0.5 MG/3 ML Neb Soln NEB PRN ×2 (11:41→19:59)
[2018-10-31] MEDS: Rosuvastatin 20 MG Tab PO SCH (19:59)
[2018-11-01] MEDS: Benzonatate 100 MG Cap PO PRN ×2 (02:00→08:55)
[2018-11-01] MEDS: guaiFENesin 100 MG/5 ML Soln 10 ML UD Cup PO PRN ×2 (02:00→08:55)
[2018-11-01] MEDS: Naproxen 500 MG Tab PO PRN (05:12)
[2018-11-01] MEDS: Losartan 25 MG Tab PO SCH (08:33)
[2018-11-01] MEDS: Aspirin 81 MG Tab.Chew PO SCH (08:33)
[2018-11-01] MEDS: Baclofen 10 MG Tab PO SCH (08:33)
[2018-11-01] MEDS: Sertraline 100 MG Tab PO SCH (08:33)
[2018-11-01] MEDS: Clopidogrel 75 MG Tab PO SCH (08:33)
[2018-11-01 08:34] VITALS: BP 147/70
--- NOTE | 2018-11-01 09:37 | PCM.DCSUM1 ---
Discharge Summary - Hospital Course Free Text/Narrative:: Pt was admitted to swing bed on 10/29/18 for OT and PT . Physical therapy has cleared patient for discharge. He has been able to do his ADLs and also has good strength. Able to walk without assistance. Therapy has cleared patient for discharge. I have discussed plan with patient. HE does have home exercises, which he should continue at home.Pt understands the plan. Also discussed his further rn long term care plans with him including [facility] assisted living and care center. Pt will think about it. Pt to continue home meds and followup with his primary care provider in 1 wk. Brief History: Pt was admitted to swing bed on 10/29/18 for OT and PT care , as he had questionable TIA and ws weak. Kindly see the inital H&P from previous admission. Diagnosis: Stroke: No - Discharge Data Discharge Date: 11/01/18 Discharge Disposition: DC/Tfer W/I Hosp To [place] [id number] Condition: Good - Referral to Home Health Primary Care Physician: PCP None - Patient Summary/Data Consults: Consultations 10/29/18 15:16 OT Evaluation and Treatment [CONS] Routine Please Evaluate and Treat. OT Reason for Consult: ADL's This query below is only for informational purposes and is not editable. Admission Diagnosis/Problem: Pain management PT Evaluation and Treatment [CONS] Routine Please Evaluate and Treat. PT Reason for Consult: Strengthening This query below is only for informational purposes and is not editable. Admission Diagnosis/Problem: Pain management - Patient Instructions Diet: Heart Healthy Diet Fluid Restriction: 1500 mL Activity: As Tolerated Showering/Bathing: May Shower - Discharge Plan *PRESCRIPTION DRUG MONITORING PROGRAM REVIEWED*: Not Applicable *COPY OF PRESCRIPTION DRUG MONITORING REPORT IN PATIENT SHAKILA: Not Applicable Home Medications: Home Meds Sertraline HCl 200 mg PO DAILY 10/28/12 [History] Baclofen [Lioresal] 10 mg PO TID tablet 02/12/17 [Rx] Clopidogrel [Plavix] 75 mg PO DAILY tablet 02/12/17 [Rx] Loperamide [Imodium] 2 mg PO BID PRN cap 02/12/17 [Rx] Losartan [Cozaar] 25 mg PO DAILY tablet 02/12/17 [Rx] Rosuvastatin [Crestor] 20 mg PO BEDTIME tablet 02/12/17 [Rx] Aspirin 81 mg PO DAILY 07/21/17 [History] Albuterol/Ipratropium [DuoNeb 3.0-0.5 MG/3 ML] 3 ml NEB Q8H PRN neb 10/29/18 [ Rx] - Discharge Summary/Plan Comment DC Time >30 min.: Yes - General Info Date of Service: 11/01/18 Functional Status: Reports: Pain Controlled, Tolerating Diet, Ambulating, Urinating - Review of Systems General: Denies: Fever, Weakness, Fatigue HEENT: Denies: Sore Throat, Rhinitis Pulmonary: Reports: Cough (chronic). Denies: Shortness of Breath, Sputum, Hemoptysis Cardiovascular: Denies: Chest Pain, Lightheadedness Gastrointestinal: Denies: Abdominal Pain, Nausea, Vomiting Genitourinary: Denies: Dysuria, Frequency Musculoskeletal: Denies: Joint Pain, Joint Swelling Neurological: Reports: Pre-Existing Deficit (left sided hemiparesis). Denies: Confusion, Dizziness, Headache, Numbness, Tingling - Patient Data Vitals - Most Recent: Last Vital Signs Temp 97.1 F 10/31/18 20:00 Pulse 58 L 10/31/18 20:00 Resp 18 10/31/18 20:00 BP 147/70 H 11/01/18 08:33 Pulse Ox 95 10/31/18 20:00 Weight - Most Recent: 228.4 kg I&O - Last 24 hours: Intake & Output 10/31/18 11/01/18 11/01/18 22:59 06:59 14:59 Output Total 500 400 Balance -500 -400 Med Orders - Current: Current Medications Albuterol/Ipratropium (Duoneb 3.0-0.5 Mg/3 Ml) 3 ml NEB Q8H PRN PRN Reason: Shortness of Breath Last Admin: 10/31/18 19:59 Dose: 3 ml Aspirin (Aspirin) 81 mg PO DAILY COUNT INCLUDES THE [facility] Last Admin: 11/01/18 08:33 Dose: 81 mg Baclofen (Lioresal) 10 mg PO TID COUNT INCLUDES THE [facility] Last Admin: 11/01/18 08:33 Dose: 10 mg Benzonatate (Tessalon Perles) 100 mg PO Q4H PRN PRN Reason: Cough Last Admin: 11/01/18 08:55 Dose: 100 mg Clopidogrel Bisulfate (Plavix) 75 mg PO DAILY COUNT INCLUDES THE [facility] Last Admin: 11/01/18 08:33 Dose: 75 mg Guaifenesin (Robitussin) 200 mg PO Q6H PRN PRN Reason: Cough Last Admin: 11/01/18 08:55 Dose: 200 mg Loperamide HCl (Imodium) 2 mg PO BID PRN PRN Reason: DIARRHEA Losartan Potassium (Cozaar) 25 mg PO DAILY COUNT INCLUDES THE [facility] Last Admin: 11/01/18 08:33 Dose: 25 mg Naproxen (Naprosyn) 500 mg PO BID PRN PRN Reason: Fever Last Admin: 11/01/18 05:12 Dose: 500 mg Rosuvastatin Calcium (Crestor) 20 mg PO BEDTIME COUNT INCLUDES THE [facility] Last Admin: 10/31/18 19:59 Dose: 20 mg Sertraline HCl (Zoloft) 200 mg PO DAILY COUNT INCLUDES THE [facility] Last Admin: 11/01/18 08:33 Dose: 200 mg Discontinued Medications Tuberculin PPD (Aplisol) 5 unit IDERM ONETIME ONE Stop: 10/29/18 15:16 Last Admin: 10/29/18 16:05 Dose: Not Given - Exam General: Reports: Alert, Oriented, Cooperative HEENT: Reports: Pupils Equal, Pupils Reactive, EOMI, Mucous Membr. Moist/[place] Neck: Reports: Supple Lungs: Reports: Clear to Auscultation, Normal Respiratory Effort Cardiovascular: Reports: Regular Rate, Regular Rhythm GI/Abdominal Exam: Normal Bowel Sounds, Soft, Non-Tender, No Organomegaly, No Distention, No Abnormal Bruit, No Mass, Pelvis Stable Extremities: Normal Inspection, Normal Range of Motion, Non-Tender, No Pedal Edema, Normal Capillary Refill Skin: Reports: Warm, Intact Neurological: Reports: No New Focal Deficit
[2018-11-01 10:52] VITALS: PULSE 55
[2018-11-01] MEDS: Albuterol/Ipratropium 3.0-0.5 MG/3 ML Neb Soln NEB PRN (11:55)
== END 2018-11-01 12:55 | disposition home or self-care (01) | DRG 948 ==
LOC: LB.MS 15:15 → UNDOADMIN 15:23 → LB.MS 16:29
PROVIDERS: ADMIT Family Medicine; ATTEND Family Medicine
DX: R53.1 Weakness (principal); Z79.82 Long term (current) use of aspirin; Z79.899 Other long term (current) drug therapy; Z86.73 Personal history of transient ischemic attack (TIA), and cerebral infarction without residual deficits
CPT/HCPCS: 97530-GO; 97530-GP; A9270-GY; J7620-GY

== ENCOUNTER 2019-08-11 14:08 | Emergency (ER) | payer OTHER, MEDICARE ==
[2019-08-11 14:25] VITALS: BP 129/69; PULSE 60
--- NOTE | 2019-08-11 17:10 | EDM.PDOC ---
ED HPI GENERAL MEDICAL PROBLEM - General Chief Complaint: General Stated Complaint: POSSIBLE SEIZURE Time Seen by Provider: 08/11/19 14:15 Source of Information: Reports: Patient, Family History Limitations: Reports: No Limitations - History of Present Illness INITIAL COMMENTS - FREE TEXT/NARRATIVE: Patient is a 73 y/o male with PMHx significant for stroke with left-sided weakn ess, who presents with worsening weakness and confusion x 6 months. Him and his recently moved here from [place] about a month ago and he still sometimes believes he is still in [place]. also states that he has had several falls this past week. takes care of patient and is having difficulty moving him herself. He was able to walk with a cane, but is unable to do so now without assistance. Patient denies any vision changes, dizziness, SINGH, neck pain, chest pain, abdominal pain, N/V/D, constipation, or numbness/tingling. - Related Data Allergies Allergy/AdvReac Type Severity Reaction Status Date / Time tuberculin, purified protein Allergy Intermediate Hives Verified 08/11/19 14:23 deriva acetaminophen [From Tylenol] Allergy Hives Verified 08/11/19 14:23 codeine Allergy Hives Verified 08/11/19 14:23 ibuprofen Allergy Hives Verified 08/11/19 14:23 morphine Allergy Hives Verified 08/11/19 14:23 sulfamethoxazole Allergy Hives Verified 08/11/19 14:23 [Sulfamethoxazole] Home Meds: Home Meds Sertraline HCl 200 mg PO DAILY 10/28/12 [History] Baclofen [Lioresal] 10 mg PO TID tablet 02/12/17 [Rx] Clopidogrel [Plavix] 75 mg PO DAILY tablet 02/12/17 [Rx] Loperamide [Imodium] 2 mg PO BID PRN cap 02/12/17 [Rx] Losartan [Cozaar] 25 mg PO DAILY tablet 02/12/17 [Rx] Rosuvastatin [Crestor] 20 mg PO BEDTIME tablet 02/12/17 [Rx] Aspirin 81 mg PO DAILY 07/21/17 [History] Acyclovir 400 mg PO ASDIRECTED 08/11/19 [History] Indomethacin, Submicronized [Indomethacin] 25 mg PO ASDIRECTED 08/11/19 [History] Past Medical History HEENT History: Reports: Hard of Hearing, Impaired Vision Cardiovascular History: Reports: High Cholesterol, Hypertension, Syncope, Other (See Below) Other Cardiovascular History: hydrocephalus Respiratory History: Reports: Sleep Apnea, SOB, Other (See Below) Other Respiratory History: left thoracic outlet syndrome Gastrointestinal History: Reports: Chronic Diarrhea, Hemorrhoids Other Gastrointestinal History: uses anit-diarrhea med but then became constipated Genitourinary History: Reports: Urinary Incontinence Musculoskeletal History: Reports: Back Pain, Chronic, Fracture Other Musculoskeletal History: R hip, L arm and leg parasthesia and increased muscle tone from CVA Neurological History: Reports: CVA, TIA, Other (See Below) Other Neuro History: 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 Psychiatric History: Reports: Anxiety, Depression Endocrine/Metabolic History: Reports: None Hematologic History: Reports: Anticoagulation Therapy Immunologic History: Reports: None Oncologic (Cancer) History: Reports: None Dermatologic History: Reports: Other (See Below) - Infectious Disease History Infectious Disease History: Reports: Chicken Pox, Influenza, MRSA, Mumps, Pertussis (Whooping Cough) - Past Surgical History Head Surgeries/Procedures: Reports: Shunt HEENT Surgical History: Reports: None Cardiovascular Surgical History: Reports: None Respiratory Surgical History: Reports: Other (See Below) Other Respiratory Surgeries/Procedures: removed 1st left rib GI Surgical History: Reports: Other (See Below) Other GI Surgeries/Procedures: hemorrhoidectomy Male Surgical History: Reports: None Neurological Surgical History: Reports: Laminectomy, Lumbar Spine, Other (See Below) Other Neurological Surgeries/Procedures: shunt revisions Musculoskeletal Surgical History: Reports: Shoulder Surgery, Other (See Below) Other Musculoskeletal Surgeries/Procedures:: Laminectomy Oncologic Surgical History: Reports: None Social & Family History - Family History Family Medical History: Noncontributory Cardiac: Reports: Hypertension Neurological: Reports: CVA - Tobacco Use Smoking Status *Q: Never Smoker Second Hand Smoke Exposure: No - Caffeine Use Caffeine Use: Reports: Coffee - Recreational Drug Use Recreational Drug Use: No ED ROS GENERAL - Review of Systems Review Of Systems: Comprehensive ROS is negative, except as noted in HPI. ED EXAM, GENERAL - Physical Exam Exam: See Below Exam Limited By: No Limitations General Appearance: Alert, No Apparent Distress Eye Exam: Bilateral Eye: EOMI, Normal Inspection, PERRL Head: Atraumatic, Normocephalic Neck: Normal Inspection, Supple, Non-Tender Respiratory/Chest: No Respiratory Distress, Lungs Clear, Normal Breath Sounds, No Accessory Muscle Use, Chest Non-Tender Cardiovascular: Normal Peripheral Pulses, Regular Rate, Rhythm, No Edema, No Murmur Peripheral Pulses: 2+: Radial (L), Radial (R), Posterior Tibial (L), Posterior Tibial (R), Dorsalis Pedis (L), Dorsalis Pedis (R) GI/Abdominal: Normal Bowel Sounds, Soft, Non-Tender, No Distention Extremities: Normal Inspection Neurological: Alert, Oriented, CN II-XII Intact, Normal Cognition Skin Exam: Warm, Dry (Patient unable to lift left upper extremity. Patient able to dorsal flex on the left, but unable to push out with puente or lift up left lower extremity. 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 lower extremity.) Course - Vital Signs Last Recorded V/S: Last Vital Signs Temp 36.1 C 08/11/19 14:23 Pulse 60 08/11/19 14:23 Resp 18 08/11/19 14:23 BP 129/69 08/11/19 14:23 Pulse Ox 98 08/11/19 14:23 - Orders/Labs/Meds Orders: Active Orders 24 hr Category Date Time Status Patient Status [ADT] Routine ADT 08/11/19 16:46 Active Notify Provider Vital Signs [RC] ASDIRECTED Care 08/11/19 16:56 Active Up With Assistance [RC] ASDIRECTED Care 08/11/19 16:46 Active Up to Chair [RC] ASDIRECTED Care 08/11/19 16:46 Active Vital Signs [RC] [id number] Care 08/11/19 16:46 Active Consult to Physical Therapy [PT Evaluation and Cons 08/11/19 15:00 Active Treatment] [CONS] Routine OT Evaluation and Treatment [CONS] Routine Cons 08/11/19 15:08 Active Heart Healthy Diet [DIET] Diet 08/11/19 Dinner Ordered Acyclovir [Acyclovir] Med 08/11/19 20:30 Active 400 mg PO ASDIRECTED Aspirin [Aspirin] Med 08/12/19 08:00 Active 81 mg PO DAILY Aspirin [Halfprin] Med 08/12/19 08:00 Active 81 mg PO DAILY Baclofen [Lioresal] Med 08/11/19 20:00 Active 10 mg PO TID Baclofen [Lioresal] Med 08/12/19 08:00 Active 10 mg PO TID Clopidogrel [Plavix] Med 08/12/19 08:00 Active 75 mg PO DAILY Clopidogrel [Plavix] Med 08/12/19 08:00 Active 75 mg PO DAILY Indomethacin [Indocin] Med 08/12/19 08:00 Active 25 mg PO TIDMEALS PRN Indomethacin, Submicronized [Indomethacin] Med 08/11/19 20:30 Active 25 mg PO ASDIRECTED Losartan [Cozaar] Med 08/12/19 08:00 Active 25 mg PO DAILY Losartan [Cozaar] Med 08/12/19 08:00 Active 25 mg PO DAILY Rosuvastatin [Crestor] Med 08/12/19 20:00 Active 20 mg PO BEDTIME Rosuvastatin [Crestor] Med 08/11/19 20:00 Active 40 mg PO BEDTIME Sertraline HCl [Sertraline HCl] Med 08/12/19 08:00 Active 200 mg PO DAILY Sertraline [Zoloft] Med 08/12/19 08:00 Active 200 mg PO DAILY Medication Orders Aspirin (Halfprin) 81 mg PO DAILY [facility] Baclofen (Lioresal) 10 mg PO TID [facility] Clopidogrel Bisulfate (Plavix) 75 mg PO DAILY [facility] Indomethacin (Indocin) 25 mg PO TIDMEALS PRN PRN Reason: Pain (mild 1-3) Losartan Potassium (Cozaar) 25 mg PO DAILY [facility] Non-Formulary Medication (Acyclovir [Acyclovir]) 400 mg PO ASDIRECTED [facility] Non-Formulary Medication (Aspirin [Aspirin]) 81 mg PO DAILY [facility] Non-Formulary Medication (Baclofen [Lioresal]) 10 mg PO TID [facility] Non-Formulary Medication (Clopidogrel [Plavix]) 75 mg PO DAILY [facility] Non-Formulary Medication (Indomethacin, Submicronized [Indomethacin]) 25 mg PO ASDIRECTED [facility] Non-Formulary Medication (Losartan [Cozaar]) 25 mg PO DAILY [facility] Non-Formulary Medication (Rosuvastatin [Crestor]) 20 mg PO BEDTIME [facility] Non-Formulary Medication (Sertraline Hcl [Sertraline Hcl]) 200 mg PO DAILY [facility] Rosuvastatin Calcium (Crestor) 40 mg PO BEDTIME [facility] Sertraline HCl (Zoloft) 200 mg PO DAILY [facility] Labs: Laboratory Tests 07/07/2508/11/19 08/11/19 Range/Units 15:10 15:10 17:29 WBC 5.6 (4.0-11.0) K/uL RBC 4.77 (4.50-6.50) M/uL Hgb 14.4 (13.0-18.0) g/dL Hct 43.0 (40.0-54.0) % MCV 90 (76-96) fL MCH 30.2 (27.0-32.0) pg MCHC 33.5 (31.0-35.0) g/dL RDW 13.6 (11.0-16.0) % Plt Count 149 L D (150-400) K/uL MPV 10.2 H (6.0-10.0) fL Neut % (Auto) 63.3 (45.0-70.0) % Lymph % (Auto) 26.3 (20.0-40.0) % [place] % (Auto) 8.1 (3.0-10.0) % Eos % (Auto) 2.1 (1.0-5.0) % Baso % (Auto) 0.2 (0.0-0.5) % Neut # (Auto) 3.54 (2.00-7.50) K/uL Lymph # (Auto) 1.47 L (1.50-4.00) K/uL [place] # (Auto) 0.45 (0.20-0.80) K/uL Eos # (Auto) 0.12 (0.04-0.40) K/uL Baso # (Auto) 0.01 L (0.02-0.10) K/uL Sodium 140 (136-145) mmol/L Potassium 4.3 (3.5-5.1) mmol/L Chloride 104 (98-107) mmol/L Carbon Dioxide 26.3 (21.0-32.0) mmol/L Anion Gap 14.0 (5.0-15.0) mmol/L BUN 14 D (8-26) mg/dL Creatinine 0.85 (0.70-1.30) mg/dL Est Cr Clr Drug Dosing 86.22 mL/min Estimated GFR (MDRD) > 60 (>60) MLS/MIN BUN/Creatinine Ratio 16.5 (6-25) Glucose 110 H (74-100) mg/dL Calcium 9.0 (8.5-10.1) mg/dL Total Bilirubin 0.6 (0.0-1.0) mg/dL AST 22 (15-37) U/L ALT 30 (12-78) U/L Alkaline Phosphatase 89 (46-116) U/L Total Protein 7.7 (6.4-8.2) g/dL Albumin 4.2 (3.4-5.0) g/dL Globulin 3.5 (2.2-4.2) g/dL Albumin/Globulin Ratio 1.2 (0.8-2.0) Urine Color Yellow Urine Appearance Clear (CLEAR) Urine pH 5.5 (5.0-8.0) Ur Specific [place] >= 1.030 (1.003-1.030) Urine Protein Negative (NEGATIVE) mg/dL Urine Glucose (UA) Negative (NEGATIVE) mg/dL Urine Ketones Negative (NEGATIVE) mg/dL Urine Occult Blood Negative (NEGATIVE) Urine Nitrite Negative (NEGATIVE) Urine Bilirubin Negative (NEGATIVE) Urine Urobilinogen 0.2 (0.2-1.0) E.U./dL Ur Leukocyte Esterase Negative (NEGATIVE) Urine RBC Not seen /HPF Urine WBC Not seen /HPF Urine Mucus Moderate /HPF Meds: Medications Generic Name Dose Route Start Last Admin Trade Name Freq PRN Reason Stop Dose Admin Aspirin 81 mg 08/12/19 08:00 Halfprin PO DAILY [facility] Baclofen 10 mg 08/11/19 20:00 Lioresal PO TID [facility] Clopidogrel Bisulfate 75 mg 08/12/19 08:00 Plavix PO DAILY [facility] Indomethacin 25 mg 08/12/19 08:00 Indocin PO TIDMEALS PRN Pain (mild 1-3) Losartan Potassium 25 mg 08/12/19 08:00 Cozaar PO DAILY [facility] Non-Formulary Medication 400 mg 08/11/19 20:30 Acyclovir [Acyclovir] PO ASDIRECTED [facility] Non-Formulary Medication 81 mg 08/12/19 08:00 Aspirin [Aspirin] PO DAILY [facility] Non-Formulary Medication 10 mg 08/12/19 08:00 Baclofen [Lioresal] PO TID [facility] Non-Formulary Medication 75 mg 08/12/19 08:00 Clopidogrel [Plavix] PO DAILY [facility] Non-Formulary Medication 25 mg 08/11/19 20:30 Indomethacin, Submicronized [Indomethacin] PO ASDIRECTED [facility] Non-Formulary Medication 25 mg 08/12/19 08:00 Losartan [Cozaar] PO DAILY [facility] Non-Formulary Medication 20 mg 08/12/19 20:00 Rosuvastatin [Crestor] PO BEDTIME [facility] Non-Formulary Medication 200 mg 08/12/19 08:00 Sertraline Hcl [Sertraline Hcl] PO DAILY [facility] Rosuvastatin Calcium 40 mg 08/11/19 20:00 Crestor PO BEDTIME [facility] Sertraline HCl 200 mg 08/12/19 08:00 Zoloft PO DAILY [facility] Discontinued Medications Generic Name Dose Route Start Last Admin Trade Name Freq PRN Reason Stop Dose Admin Clopidogrel Bisulfate 75 mg 08/11/19 18:55 08/11/19 19:01 Plavix PO 08/11/19 18:56 Not Given ONETIME ONE Non-Formulary Medication 2 mg 08/11/19 20:26 Loperamide [Imodium] PO BID PRN DIARRHEA Departure - Departure Time of Disposition: 17:15 Disposition: Admitted As Inpatient 67 Condition: Fair Clinical Impression: Weakness - Discharge Information *PRESCRIPTION DRUG MONITORING PROGRAM REVIEWED*: Not Applicable *COPY OF PRESCRIPTION DRUG MONITORING REPORT IN PATIENT SHAKILA: Not Applicable Sepsis Event Note (ED) - Evaluation Sepsis Screening Result: No Definite Risk - My Orders Last 24 Hours: My Active Orders 08/11/19 15:00 Consult to Physical Therapy [PT Evaluation and Treatment] [CONS] Routine 08/11/19 15:08 OT Evaluation and Treatment [CONS] Routine 08/11/19 16:46 Patient Status [ADT] Routine Up With Assistance [RC] ASDIRECTED Up to Chair [RC] ASDIRECTED Vital Signs [RC] [id number] 08/11/19 16:56 Notify Provider Vital Signs [RC] ASDIRECTED 08/11/19 Dinner Heart Healthy Diet [DIET] 08/11/19 20:00 Baclofen [Lioresal] 10 mg PO TID Rosuvastatin [Crestor] 40 mg PO BEDTIME 08/11/19 20:30 Acyclovir [Acyclovir] 400 mg PO ASDIRECTED Indomethacin, Submicronized [Indomethacin] 25 mg PO ASDIRECTED 08/12/19 08:00 Aspirin [Aspirin] 81 mg PO DAILY Aspirin [Halfprin] 81 mg PO DAILY Baclofen [Lioresal] 10 mg PO TID Clopidogrel [Plavix] 75 mg PO DAILY Clopidogrel [Plavix] 75 mg PO DAILY Indomethacin [Indocin] 25 mg PO TIDMEALS PRN Losartan [Cozaar] 25 mg PO DAILY Losartan [Cozaar] 25 mg PO DAILY Sertraline HCl [Sertraline HCl] 200 mg PO DAILY Sertraline [Zoloft] 200 mg PO DAILY 08/12/19 20:00 Rosuvastatin [Crestor] 20 mg PO BEDTIME - Assessment/Plan Last 24 Hours: My Active Orders 08/11/19 15:00 Consult to Physical Therapy [PT Evaluation and Treatment] [CONS] Routine 08/11/19 15:08 OT Evaluation and Treatment [CONS] Routine 08/11/19 16:46 Patient Status [ADT] Routine Up With Assistance [RC] ASDIRECTED Up to Chair [RC] ASDIRECTED Vital Signs [RC] [id number] 08/11/19 16:56 Notify Provider Vital Signs [RC] ASDIRECTED 08/11/19 Dinner Heart Healthy Diet [DIET] 08/11/19 20:00 Baclofen [Lioresal] 10 mg PO TID Rosuvastatin [Crestor] 40 mg PO BEDTIME 08/11/19 20:30 Acyclovir [Acyclovir] 400 mg PO ASDIRECTED Indomethacin, Submicronized [Indomethacin] 25 mg PO ASDIRECTED 08/12/19 08:00 Aspirin [Aspirin] 81 mg PO DAILY Aspirin [Halfprin] 81 mg PO DAILY Baclofen [Lioresal] 10 mg PO TID Clopidogrel [Plavix] 75 mg PO DAILY Clopidogrel [Plavix] 75 mg PO DAILY Indomethacin [Indocin] 25 mg PO TIDMEALS PRN Losartan [Cozaar] 25 mg PO DAILY Losartan [Cozaar] 25 mg PO DAILY Sertraline HCl [Sertraline HCl] 200 mg PO DAILY Sertraline [Zoloft] 200 mg PO DAILY 08/12/19 20:00 Rosuvastatin [Crestor] 20 mg PO BEDTIME Assessment:: CT head and labs are unremarkable. OT consulted and patient unsafe to be discharged home. Will admit patient to [facility] and will be transferred to the [facility] for rehab when a bed is available. Plan: Dr. Vargas is managing patient today and forward. He will be going to the [facility] tomorrow.
--- NOTE | 2019-08-11 18:45 | CR ---
DATE OF SERVICE: 08/11/19 CLINICAL DATA: increased weakness AP CHEST: Comparison made to a prior exam dated 10/25/18. The patient has taken a poor inspiration. The heart size is normal. The lungs appear clear. No pneumothorax. No pleural effusions. No evidence of acute intrathoracic disease. [id number] [facility]
[2019-08-11] MEDS ORDERED: Clopidogrel 75 MG Tab PO ONE (18:55)
[2019-08-11] MEDS ORDERED: Baclofen 10 MG Tab PO SCH (20:00)
[2019-08-11] MEDS ORDERED: Non-Formulary Medication 1 Each (Loperamide [Imodium] 2 MG) PO PRN (20:26)
[2019-08-11] MEDS ORDERED: ACYCLOVIR 400 MG PO SCH (20:30)
[2019-08-11] MEDS ORDERED: [UNRECOGNIZED DRUG - OTHER] PO SCH (20:30)
[2019-08-12] MEDS ORDERED: Clopidogrel 75 MG Tab PO SCH (08:00)
[2019-08-12] MEDS ORDERED: Non-Formulary Medication 1 Each (Aspirin [Aspirin] 81 MG) PO SCH (08:00)
[2019-08-12] MEDS ORDERED: Non-Formulary Medication 1 Each (Losartan [Cozaar] 25 MG) PO SCH (08:00)
[2019-08-12] MEDS ORDERED: Sertraline 100 MG Tab PO SCH (08:00)
[2019-08-12] MEDS ORDERED: BACLOFEN 10 MG PO SCH (08:00)
[2019-08-12] MEDS ORDERED: Losartan 25 MG Tab PO SCH (08:00)
[2019-08-12] MEDS ORDERED: Aspirin 81 MG Tab.EC PO SCH (08:00)
[2019-08-12] MEDS ORDERED: SERTRALINE HCL 200 MG PO SCH (08:00)
[2019-08-12] MEDS ORDERED: Non-Formulary Medication 1 Each (Clopidogrel [Plavix] 75 MG) PO SCH (08:00)
[2019-08-12] MEDS ORDERED: Indomethacin 25 MG Cap PO PRN (08:00)
--- NOTE | 2019-08-12 08:34 | CT ---
DATE OF SERVICE: 08/11/2019 CLINICAL DATA: Increased weakness, confusion Unenhanced brain CT: Multislice acquisition through the brain without IV contrast was performed. Comparison is made to a prior exam dated 24 October 2018. There is a large area of encephalomalacia in the right middle cerebral artery distribution consistent with a prior infarct. It appears unchanged from the prior study. There is a right-sided ventriculostomy catheter in place with its distal tip in the right ventricle near the foramen of Monro. There is stable lateral and 3rd ventriculomegaly. No masses or mass effect. No intracranial hemorrhage. No evidence of acute or subacute infarct. No significant changed from the prior study. There is bilateral hyperostosis internus frontalis. Impression: No acute abnormalities. MTDD
[2019-08-12] MEDS ORDERED: Non-Formulary Medication 1 Each (Rosuvastatin [Crestor] 20 MG) PO SCH (20:00)
--- NOTE | 2019-08-13 16:32 | PCM.DCSUM1 ---
Discharge Summary - Discharge Data Discharge Date: 08/13/19 Discharge Disposition: DC/Tfer to [facility]ust[facility], [place] [facility] Condition: Stable - Referral to Home Health Primary Care Physician: PCP None - Patient Summary/Data Consults: Consultations 08/11/19 15:00 Consult to Physical Therapy [PT Evaluation and Treatment] [CONS] Routine Please Evaluate and Treat. PT Reason for Consult: Other (Type Response) Pending Discharge: Yes: pending workup Special Instructions: please eval and give recommendations This query below is only for informational purposes and is not editable. 08/11/19 15:08 OT Evaluation and Treatment [CONS] Routine Please Evaluate and Treat. OT Reason for Consult: Discharge Planning Pending Discharge: Yes: pending work up Special Instructions: please eval and given recommendations This query below is only for informational purposes and is not editable. - Patient Instructions Diet: Usual Diet as Tolerated Activity: As Tolerated Showering/Bathing: May Shower - Discharge Plan *PRESCRIPTION DRUG MONITORING PROGRAM REVIEWED*: Not Applicable *COPY OF PRESCRIPTION DRUG MONITORING REPORT IN PATIENT SHAKILA: Not Applicable Home Medications: Home Meds Sertraline HCl 200 mg PO DAILY 10/28/12 [History] Baclofen [Lioresal] 10 mg PO TID tablet 02/12/17 [Rx] Clopidogrel [Plavix] 75 mg PO DAILY tablet 02/12/17 [Rx] Loperamide [Imodium] 2 mg PO BID PRN cap 02/12/17 [Rx] Losartan [Cozaar] 25 mg PO DAILY tablet 02/12/17 [Rx] Rosuvastatin [Crestor] 20 mg PO BEDTIME tablet 02/12/17 [Rx] Aspirin 81 mg PO DAILY 07/21/17 [History] Acyclovir 400 mg PO ASDIRECTED 08/11/19 [History] Indomethacin, Submicronized [Indomethacin] 25 mg PO ASDIRECTED 08/11/19 [History] Referrals: PCP,None [Primary Care Provider] - - Discharge Summary/Plan Comment DC Time >30 min.: No Discharge Summary/Plan Comment: Patient to be discharged from Respite care to the Care center. Continue PT/OT. No medication changes at this time. - General Info Date of Service: 08/13/19 Subjective Update: This is a 73 yo M with prior CVA and hemiparesis who was recently admitted to Respite care for increasing weakness and inability to walk to transfer self. He denies any other concerns or complaints. Functional Status: Reports: Pain Controlled, Tolerating Diet - Review of Systems General: Reports: Weakness HEENT: Reports: No Symptoms Pulmonary: Reports: No Symptoms Cardiovascular: Reports: No Symptoms Gastrointestinal: Reports: No Symptoms Genitourinary: Reports: Incontinence Musculoskeletal: Reports: Leg Pain Neurological: Reports: Pre-Existing Deficit, Difficulty Walking, Weakness Psychiatric: Reports: No Symptoms - Patient Data Vitals - Most Recent: Last Vital Signs Temp 36.1 C 08/11/19 14:23 Pulse 60 08/11/19 14:23 Resp 18 08/11/19 14:23 BP 129/69 08/11/19 14:23 Pulse Ox 98 08/11/19 14:23 Weight - Most Recent: 104.326 kg Med Orders - Current: Current Medications Discontinued Medications Aspirin (Halfprin) 81 mg PO DAILY RUFINO Baclofen (Lioresal) 10 mg PO TID RUFINO Clopidogrel Bisulfate (Plavix) 75 mg PO ONETIME ONE Stop: 08/11/19 18:56 Last Admin: 08/11/19 19:01 Dose: Not Given Documented by: Clopidogrel Bisulfate (Plavix) 75 mg PO DAILY RUFINO Indomethacin (Indocin) 25 mg PO TIDMEALS PRN PRN Reason: Pain (mild 1-3) Losartan Potassium (Cozaar) 25 mg PO DAILY [facility] Non-Formulary Medication (Acyclovir [Acyclovir]) 400 mg PO ASDIRECTED RUFINO Non-Formulary Medication (Aspirin [Aspirin]) 81 mg PO DAILY [facility] Non-Formulary Medication (Baclofen [Lioresal]) 10 mg PO TID RUFINO Non-Formulary Medication (Clopidogrel [Plavix]) 75 mg PO DAILY RUFINO Non-Formulary Medication (Indomethacin, Submicronized [Indomethacin]) 25 mg PO ASDIRECTED RUFINO Non-Formulary Medication (Loperamide [Imodium]) 2 mg PO BID PRN PRN Reason: DIARRHEA Non-Formulary Medication (Losartan [Cozaar]) 25 mg PO DAILY [facility] Non-Formulary Medication (Rosuvastatin [Crestor]) 20 mg PO BEDTIME RUFINO Non-Formulary Medication (Sertraline Hcl [Sertraline Hcl]) 200 mg PO DAILY [facility] Rosuvastatin Calcium (Crestor) 40 mg PO BEDTIME RUFINO Sertraline HCl (Zoloft) 200 mg PO DAILY RUFINO - Exam General: Reports: Alert, Oriented, Cooperative HEENT: Reports: Pupils Equal, Pupils Reactive, EOMI Neck: Reports: Supple Lungs: Reports: Clear to Auscultation, Normal Respiratory Effort Cardiovascular: Reports: Regular Rate, Regular Rhythm Back Exam: Reports: Normal Inspection Skin: Reports: Warm, Dry, Intact Neurological: Reports: No New Focal Deficit Psy/Mental Status: Reports: Alert, Normal Affect, Normal Mood
== END 2019-08-11 17:34 ==
LOC: LB.ED 14:08
DX: R53.1 Weakness (principal); E78.00 Pure hypercholesterolemia, unspecified; I10 Essential (primary) hypertension; Z86.73 Personal history of transient ischemic attack (TIA), and cerebral infarction without residual deficits; F41.9 Anxiety disorder, unspecified; F32.9 Major depressive disorder, single episode, unspecified; Z88.8 Allergy status to other drugs, medicaments and biological substances; Z88.5 Allergy status to narcotic agent; Z88.2 Allergy status to sulfonamides; Z79.899 Other long term (current) drug therapy; Z79.82 Long term (current) use of aspirin
CPT/HCPCS: 36415; 70450; 71045; 80053; 81001; 85025; 99285-25

== ENCOUNTER 2019-08-11 16:46 | Inpatient (IN) | payer SELFPAY ==
[2019-08-11 17:54] VITALS: BP 129/69; PULSE 64
[2019-08-11] MEDS ORDERED: Aspirin 81 MG Tab.EC*PT OWN MED PO SCH (20:45)
[2019-08-11] MEDS: Baclofen 10 MG Tab PO ONE (20:54)
[2019-08-12] MEDS ORDERED: Sertraline 100 MG Tab PO SCH (08:00)
[2019-08-12] MEDS: Non-Formulary Medication 1 Each (Clopidogrel [Plavix] 75 MG) PO SCH (08:00)
[2019-08-12] MEDS ORDERED: Losartan 25 MG Tab PO SCH (08:00)
[2019-08-12] MEDS: Non-Formulary Medication 1 Each (Aspirin [Aspirin] 81 MG) PO SCH (08:00)
[2019-08-12] MEDS ORDERED: Clopidogrel 75 MG Tab*PT OWN MED PO SCH (08:00)
[2019-08-12] MEDS: Non-Formulary Medication 1 Each (Losartan [Cozaar] 25 MG) PO SCH (08:00)
[2019-08-12] MEDS: SERTRALINE HCL 200 MG PO SCH (08:00)
[2019-08-12] MEDS: BACLOFEN 10 MG PO SCH ×3 (08:00→20:29)
[2019-08-12] MEDS ORDERED: Baclofen 10 MG Tab PO SCH (08:00)
--- NOTE | 2019-08-12 09:00 | PCM.PN ---
- General Info Date of Service: 08/12/19 Subjective Update: Patient stable and denies any current concerns. He does recall who I am and got his age correct after a first incorrect response. He didn't get the year as he thought it was 2000 but was alert and looking for the date on the wall. He does appear cognitively baseline but has gotten very weak and unsteady and unable to ambulate very well by himself. - Review of Systems General: Reports: Weakness HEENT: Reports: No Symptoms Pulmonary: Reports: No Symptoms Cardiovascular: Reports: No Symptoms Gastrointestinal: Reports: No Symptoms Musculoskeletal: Reports: No Symptoms Neurological: Reports: Weakness - Patient Data Vitals - Most Recent: Last Vital Signs Temp 36.6 C 08/11/19 17:24 Pulse 64 08/11/19 17:24 Resp 18 08/11/19 17:24 BP 129/69 08/11/19 17:24 Pulse Ox 98 08/11/19 17:24 Weight - Most Recent: 104.78 kg Med Orders - Current: Current Medications Aspirin (Halfprin) 81 mg PO BEDTIME RUFINO Last Admin: 08/11/19 20:54 Dose: 81 mg Documented by: Baclofen (Lioresal) 10 mg PO TID RUFINO Clopidogrel Bisulfate (Plavix) 75 mg PO DAILY RUFINO Losartan Potassium (Cozaar) 25 mg PO DAILY RUFINO Rosuvastatin Calcium (Crestor) 40 mg PO BEDTIME RUFINO Sertraline HCl (Zoloft) 200 mg PO DAILY RUFINO Discontinued Medications Baclofen (Lioresal) 10 mg PO ONETIME ONE Stop: 08/11/19 20:46 Last Admin: 08/11/19 20:54 Dose: 10 mg Documented by: Rosuvastatin Calcium (Crestor) 40 mg PO ONETIME ONE Stop: 08/11/19 20:46 Last Admin: 08/11/19 20:54 Dose: 40 mg Documented by: - Exam General: Alert, Cooperative HEENT: Pupils Equal, Pupils Reactive, EOMI Lungs: Clear to Auscultation, Normal Respiratory Effort Cardiovascular: Regular Rate, Regular Rhythm Back Exam: Normal Inspection Neurological: Other (weak lower extremities with prior CVA paresis) Sepsis Event Note - Evaluation Sepsis Screening Result: No Definite Risk - Focused Exam Date Exam was Performed: 08/12/19 Time Exam was Performed: 08:55 - Problem List & Annotations (1) Weakness SNOMED Code(s): 59841962 Code(s): R53.1 - WEAKNESS Status: Acute Current Visit: Yes (2) CVA, Cerebrovascular accident SNOMED Code(s): 673820444 Code(s): I63.9 - CEREBRAL INFARCTION, UNSPECIFIED Status: Chronic Priority: High Current Visit: No (3) Falls SNOMED Code(s): 8051970, 096889868 Code(s): W19.XXXA - UNSPECIFIED FALL, INITIAL ENCOUNTER Status: Acute Priority: High Current Visit: Yes Onset Date: ~09/30/15 Qualifiers: Encounter type: initial encounter Qualified Code(s): W19.XXXA - Unspecified fall, initial encounter - Problem List Review Problem List Initiated/Reviewed/Updated: Yes - Plan Plan:: Patient in respite care pending care center admission. He has been having increasing falls at home and his has been unable to assist him or pick him up.
[2019-08-12] MEDS ORDERED: Baclofen 10 MG Tab ONE (13:46)
[2019-08-12] MEDS ORDERED: Non-Formulary Medication 1 Each (Rosuvastatin [Crestor] 20 MG) PO SCH (20:00)
[2019-08-12] MEDS: Baclofen 10 MG Tab PO ONE (20:29)
[2019-08-13] MEDS ORDERED: Sertraline 100 MG Tab ONE (08:22)
[2019-08-13] MEDS: Non-Formulary Medication 1 Each (Losartan [Cozaar] 25 MG) PO SCH (08:32)
[2019-08-13] MEDS: Non-Formulary Medication 1 Each (Clopidogrel [Plavix] 75 MG) PO SCH (08:32)
[2019-08-13] MEDS: SERTRALINE HCL 200 MG PO SCH (08:32)
[2019-08-13] MEDS: BACLOFEN 10 MG PO SCH (08:32)
[2019-08-13] MEDS: Non-Formulary Medication 1 Each (Aspirin [Aspirin] 81 MG) PO SCH (08:32)
[2019-08-13] MEDS ORDERED: Indomethacin 25 MG Cap PO PRN (08:34)
--- NOTE | 2019-08-14 14:43 | PCM.DCSUM1 ---
Discharge Summary - Discharge Data Discharge Date: 08/13/19 Discharge Disposition: DC/Tfer to SNF [facility] Condition: Stable - Referral to Home Health Primary Care Physician: PCP None - Patient Summary/Data Consults: Consultations 08/11/19 15:00 Consult to Physical Therapy [PT Evaluation and Treatment] [CONS] Routine Please Evaluate and Treat. PT Reason for Consult: Other (Type Response) Pending Discharge: Yes: pending workup Special Instructions: please eval and give recommendations This query below is only for informational purposes and is not editable. 08/11/19 15:08 OT Evaluation and Treatment [CONS] Routine Please Evaluate and Treat. OT Reason for Consult: Discharge Planning Pending Discharge: Yes: pending work up Special Instructions: please eval and given recommendations This query below is only for informational purposes and is not editable. - Patient Instructions Diet: Usual Diet as Tolerated Activity: As Tolerated Showering/Bathing: May Shower - Discharge Plan *PRESCRIPTION DRUG MONITORING PROGRAM REVIEWED*: Not Applicable *COPY OF PRESCRIPTION DRUG MONITORING REPORT IN PATIENT SHAKILA: Not Applicable Home Medications: Home Meds Sertraline HCl 200 mg PO DAILY 10/28/12 [History] Baclofen [Lioresal] 10 mg PO TID tablet 02/12/17 [Rx] Clopidogrel [Plavix] 75 mg PO DAILY tablet 02/12/17 [Rx] Loperamide [Imodium] 2 mg PO BID PRN cap 02/12/17 [Rx] Losartan [Cozaar] 25 mg PO DAILY tablet 02/12/17 [Rx] Rosuvastatin [Crestor] 20 mg PO BEDTIME tablet 02/12/17 [Rx] Aspirin 81 mg PO DAILY 07/21/17 [History] Acyclovir 400 mg PO ASDIRECTED 08/11/19 [History] Indomethacin, Submicronized [Indomethacin] 25 mg PO ASDIRECTED 08/11/19 [History] - Discharge Summary/Plan Comment DC Time >30 min.: No Discharge Summary/Plan Comment: Patient to be discharged from Respite care to the Care center. Continue PT/OT. No medication changes at this time. - General Info Date of Service: 08/13/19 Subjective Update: This is a 73 yo M with prior CVA and hemiparesis who was recently admitted to Respite care for increasing weakness and inability to walk to transfer self. He denies any other concerns or complaints. Functional Status: Reports: Pain Controlled, Tolerating Diet - Review of Systems General: Reports: Weakness HEENT: Reports: No Symptoms Pulmonary: Reports: No Symptoms Cardiovascular: Reports: No Symptoms Gastrointestinal: Reports: No Symptoms Genitourinary: Reports: Incontinence Musculoskeletal: Reports: Leg Pain Neurological: Reports: Pre-Existing Deficit, Difficulty Walking, Weakness Psychiatric: Reports: No Symptoms - Patient Data Vitals - Most Recent: Last Vital Signs Temp 36.1 C 08/11/19 14:23 Pulse 60 08/11/19 14:23 Resp 18 08/11/19 14:23 BP 129/69 08/11/19 14:23 Pulse Ox 98 08/11/19 14:23 Weight - Most Recent: 104.326 kg Med Orders - Current: Current Medications Discontinued Medications Aspirin (Halfprin) 81 mg PO DAILY RUFINO Baclofen (Lioresal) 10 mg PO TID RUFINO Clopidogrel Bisulfate (Plavix) 75 mg PO ONETIME ONE Stop: 08/11/19 18:56 Last Admin: 08/11/19 19:01 Dose: Not Given Documented by: Clopidogrel Bisulfate (Plavix) 75 mg PO DAILY [facility] Indomethacin (Indocin) 25 mg PO TIDMEALS PRN PRN Reason: Pain (mild 1-3) Losartan Potassium (Cozaar) 25 mg PO DAILY [facility] Non-Formulary Medication (Acyclovir [Acyclovir]) 400 mg PO ASDIRECTED RUFINO Non-Formulary Medication (Aspirin [Aspirin]) 81 mg PO DAILY [facility] Non-Formulary Medication (Baclofen [Lioresal]) 10 mg PO TID RUFINO Non-Formulary Medication (Clopidogrel [Plavix]) 75 mg PO DAILY RUFINO Non-Formulary Medication (Indomethacin, Submicronized [Indomethacin]) 25 mg PO ASDIRECTED RUFINO Non-Formulary Medication (Loperamide [Imodium]) 2 mg PO BID PRN PRN Reason: DIARRHEA Non-Formulary Medication (Losartan [Cozaar]) 25 mg PO DAILY [facility] Non-Formulary Medication (Rosuvastatin [Crestor]) 20 mg PO BEDTIME RUFINO Non-Formulary Medication (Sertraline Hcl [Sertraline Hcl]) 200 mg PO DAILY [facility] Rosuvastatin Calcium (Crestor) 40 mg PO BEDTIME RUFINO Sertraline HCl (Zoloft) 200 mg PO DAILY [facility] - Exam General: Reports: Alert, Oriented, Cooperative HEENT: Reports: Pupils Equal, Pupils Reactive, EOMI Neck: Reports: Supple Lungs: Reports: Clear to Auscultation, Normal Respiratory Effort Cardiovascular: Reports: Regular Rate, Regular Rhythm Back Exam: Reports: Normal Inspection Skin: Reports: Warm, Dry, Intact Neurological: Reports: No New Focal Deficit Psy/Mental Status: Reports: Alert, Normal Affect, Normal Mood
== END 2019-08-13 13:45 | DRG 57 ==
LOC: LB.MS 16:46 → UNDOADMIN 16:46
PROVIDERS: ADMIT Physician Assistant; ATTEND Physician Assistant
DX: I69.354 Hemiplegia and hemiparesis following cerebral infarction affecting left non-dominant side (principal); Z75.5 Holiday relief care; E78.00 Pure hypercholesterolemia, unspecified; I10 Essential (primary) hypertension; G47.30 Sleep apnea, unspecified; F41.9 Anxiety disorder, unspecified; F32.9 Major depressive disorder, single episode, unspecified; Z88.5 Allergy status to narcotic agent; Z88.2 Allergy status to sulfonamides; Z88.8 Allergy status to other drugs, medicaments and biological substances; Z79.82 Long term (current) use of aspirin; Z79.899 Other long term (current) drug therapy
CPT/HCPCS: A9270-GY; U0002

== ENCOUNTER 2019-09-21 21:56 | Inpatient (IN) | payer MEDICARE ==
--- NOTE | 2019-09-21 23:24 | EDM.PDOC ---
ED HPI GENERAL MEDICAL PROBLEM - General Chief Complaint: General Stated Complaint: confused at home Time Seen by Provider: 09/21/19 22:15 Source of Information: Reports: EMS, Family History Limitations: Reports: Altered Mental Status - History of Present Illness INITIAL COMMENTS - FREE TEXT/NARRATIVE: Pt seemed to be weaker this evening more than usual and seemed to more confused initially. His of 50 years thought he was having difficulty ambulating and she was unable to assist him as she is normally able to due. Pt with h/o hydrocephalus back in [id number] which resulted shunt revision of 8 times over a two year period but had had no further issues with his shunt since but has had several CVA and TIAs. Pt is DNR. At time of my exam pt seems to be able to communicate appropriately. He has normal left side weakness s/p prior strokes. Onset: Unknown/Unsure Duration: Improving, Resolved Prior to Arrival Severity: Mild Improves with: Reports: Rest Worsens with: Reports: None Associated Symptoms: Reports: Confusion - Related Data Allergies Allergy/AdvReac Type Severity Reaction Status Date / Time tuberculin, purified protein Allergy Intermediate Hives Verified 08/11/19 14:23 deriva acetaminophen [From Tylenol] Allergy Hives Verified 08/11/19 14:23 codeine Allergy Hives Verified 08/11/19 14:23 ibuprofen Allergy Hives Verified 08/11/19 14:23 morphine Allergy Hives Verified 08/11/19 14:23 sulfamethoxazole Allergy Hives Verified 08/11/19 14:23 [Sulfamethoxazole] Home Meds: Home Meds Sertraline HCl 200 mg PO DAILY 10/28/12 [History] Baclofen [Lioresal] 10 mg PO TID tablet 02/12/17 [Rx] Clopidogrel [Plavix] 75 mg PO DAILY tablet 02/12/17 [Rx] Loperamide [Imodium] 2 mg PO BID PRN cap 02/12/17 [Rx] Losartan [Cozaar] 25 mg PO DAILY tablet 02/12/17 [Rx] Rosuvastatin [Crestor] 20 mg PO BEDTIME tablet 02/12/17 [Rx] Aspirin 81 mg PO DAILY 07/21/17 [History] Acyclovir 400 mg PO ASDIRECTED 08/11/19 [History] Indomethacin, Submicronized [Indomethacin] 25 mg PO ASDIRECTED 08/11/19 [History] Past Medical History HEENT History: Reports: Hard of Hearing, Impaired Vision Cardiovascular History: Reports: High Cholesterol, Hypertension, Syncope, Other (See Below) Other Cardiovascular History: hydrocephalus Respiratory History: Reports: Sleep Apnea, SOB, Other (See Below) Other Respiratory History: left thoracic outlet syndrome Gastrointestinal History: Reports: Chronic Diarrhea, Hemorrhoids Other Gastrointestinal History: uses anit-diarrhea med but then became constipated Genitourinary History: Reports: Urinary Incontinence Musculoskeletal History: Reports: Back Pain, Chronic, Fracture Other Musculoskeletal History: R hip, L arm and leg parasthesia and increased muscle tone from CVA Neurological History: Reports: CVA, TIA, Other (See Below) Other Neuro History: 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 Psychiatric History: Reports: Anxiety, Depression Endocrine/Metabolic History: Reports: None Hematologic History: Reports: Anticoagulation Therapy Immunologic History: Reports: None Oncologic (Cancer) History: Reports: None Dermatologic History: Reports: Other (See Below) - Infectious Disease History Infectious Disease History: Reports: Chicken Pox, Influenza, MRSA, Mumps, Pertussis (Whooping Cough) - Past Surgical History Head Surgeries/Procedures: Reports: Shunt HEENT Surgical History: Reports: None Cardiovascular Surgical History: Reports: None Respiratory Surgical History: Reports: Other (See Below) Other Respiratory Surgeries/Procedures: removed 1st left rib GI Surgical History: Reports: Other (See Below) Other GI Surgeries/Procedures: hemorrhoidectomy Male Surgical History: Reports: None Neurological Surgical History: Reports: Laminectomy, Lumbar Spine, Other (See Below) Other Neurological Surgeries/Procedures: shunt revisions Musculoskeletal Surgical History: Reports: Shoulder Surgery, Other (See Below) Other Musculoskeletal Surgeries/Procedures:: Laminectomy Oncologic Surgical History: Reports: None Social & Family History - Family History Family Medical History: Noncontributory Cardiac: Reports: Hypertension Neurological: Reports: CVA - Tobacco Use Smoking Status *Q: Former Smoker Years of Tobacco use: 10 Used Tobacco, but Quit: Yes Month/Year Tobacco Last Used: Second Hand Smoke Exposure: No - Caffeine Use Caffeine Use: Reports: Coffee - Recreational Drug Use Recreational Drug Use: No ED ROS GENERAL - Review of Systems Review Of Systems: See Below Constitutional: Reports: Weakness. Denies: Fever HEENT: Reports: No Symptoms Respiratory: Reports: No Symptoms. Denies: Shortness of Breath, Wheezing Cardiovascular: Denies: Chest Pain Endocrine: Reports: No Symptoms GI/Abdominal: Reports: No Symptoms. Denies: Abdominal Pain, Nausea, Vomiting : Reports: No Symptoms Musculoskeletal: Reports: Back Pain Skin: Reports: No Symptoms Neurological: Reports: Confusion Psychiatric: Reports: Anxiety, Depression - Physical Exam Exam: See Below Exam Limited By: No Limitations General Appearance: Alert, WD/WN, Mild Distress Ears: Normal External Exam Nose: Normal Inspection Throat/Mouth: Normal Inspection Head Exam: Atraumatic, Normocephalic Neck: Normal Inspection, Supple, Non-Tender, Full Range of Motion Respiratory/Chest: No Respiratory Distress, Lungs Clear, Normal Breath Sounds Cardiovascular: Normal Peripheral Pulses, Regular Rate, Rhythm Neuro Exam (Abbreviated): Alert, Oriented, CN II-XII Intact, Normal Cognition Extremities: Normal Inspection Psychiatric: Flat Affect Skin Exam: Warm, Dry, Intact, Normal Color Course - Vital Signs Last Recorded V/S: Last Vital Signs Temp 97.7 F 09/21/19 22:27 Pulse 63 09/21/19 22:27 Resp 16 09/21/19 22:27 BP 154/76 H 09/21/19 22:27 Pulse Ox 98 09/21/19 22:27 - Re-Assessments/Exams Free Text/Narrative Re-Assessment/Exam: 09/21/19 23:48 Pt cleared from his 'mental fog' he had according to his who is at bedside but doesn't think he is steady enough and strong enough to go home tonight and asked if we could keep him here until AM and maybe have physical therapy see him in the morning. He had just left rehab 10 days ago after a month for rehabilitation to enable him to walk on his own. He is DNR and is s/p multiple strokes and TIAs. Departure - Departure Time of Disposition: 23:47 Disposition: Refer to Observation Condition: Fair Clinical Impression: Weakness, TIA on medication, History of cerebrovascular accident (CVA) with residual deficit Depression Qualifiers: Depression Type: other depression Qualified Code(s): F32.89 - Other specified depressive episodes - Discharge Information *PRESCRIPTION DRUG MONITORING PROGRAM REVIEWED*: Not Applicable *COPY OF PRESCRIPTION DRUG MONITORING REPORT IN PATIENT SHAKILA: Not Applicable Instructions: Weakness, [id number] Referrals: PCP,None [Primary Care Provider] - Sepsis Event Note (ED) - Evaluation Sepsis Screening Result: No Definite Risk - Focused Exam Vital Signs: Vital Signs Temp Pulse Resp BP Pulse Ox 09/21/19 22:27 97.7 F 63 16 154/76 H 98 09/21/19 22:10 97.6 F 63 16 154/76 H 98
--- NOTE | 2019-09-22 08:14 | PCM.PRNOTE ---
- Free Text/Narrative Note: PROGRESS NOTE: Pt was admitted last evening late around midnight. His hx is positive for multiple CVA and TIAs. He is DNR. His states he was confused more than usual last night and did not know whether or not he was having another stroke or TIA.
[2019-09-22] MEDS: Baclofen 10 MG Tab PO SCH ×2 (10:00→20:10)
[2019-09-22] MEDS: Losartan 25 MG Tab PO SCH (10:00)
[2019-09-22] MEDS: Sertraline 100 MG Tab PO SCH (10:00)
[2019-09-22] MEDS: Clopidogrel 75 MG Tab PO SCH (16:00)
[2019-09-22] MEDS: Aspirin 81 MG Tab.Chew PO SCH (16:00)
--- NOTE | 2019-09-22 16:32 | CT ---
Date of Service: 09/22/19 Clinical Data: delirium UNENHANCED BRAIN CT: Multislice acquisition through the brain without IV contrast was performed. Comparison is made to a prior exam dated 08/11/19. There is diffuse cerebral atrophy. There is an extensive area of encephalomalacia involving the right middle cerebral artery distribution consistent with a prior infarct, unchanged from the prior exam. There is a [employer] shunt in place, unchanged in position from the prior exam. There is significant decompression of the lateral and third ventricles compared with the prior exam. No masses. No intracranial hemorrhage. No evidence of acute or subacute infarct. IMPRESSION: No acute intracranial abnormalities. [id number] [facility]
--- NOTE | 2019-09-22 16:36 | CR ---
Date of Service: 09/22/19 Clinical Data: confusion, delirium AP CHEST: Comparison is made to a prior exam dated 08/11/19. The patient has taken a very poor inspiration. The heart size is at the upper limits of normal. It is probably accentuated by the poor inspiration. The pulmonary vasculature does appear mildly prominent. It also may be accentuated by the poor inspiration. No areas of consolidation. No pneumothorax. No pleural effusions. [id number] [facility]
[2019-09-22] MEDS ORDERED: LOPERAMIDE 2 MG PO PRN (17:42)
[2019-09-22] MEDS ORDERED: INDOMETHACIN 25 MG PO PRN (17:45)
[2019-09-22] MEDS ORDERED: Acyclovir 400 MG Tab PO SCH (17:45)
--- NOTE | 2019-09-22 17:47 | PCM.PN ---
- General Info Date of Service: 09/22/19 Subjective Update: Patient appears confused with decreased motor function compared to discharge from care center. There is concern that he may have had another CVA per family and PA. - Review of Systems General: Reports: Weakness HEENT: Reports: Dysphasia Pulmonary: Reports: No Symptoms Cardiovascular: Reports: No Symptoms Gastrointestinal: Reports: No Symptoms Genitourinary: Reports: No Symptoms Musculoskeletal: Reports: No Symptoms Neurological: Reports: Confusion, Pre-Existing Deficit, Difficulty Walking, Weakness Psychiatric: Reports: Confusion - Patient Data Vitals - Most Recent: Last Vital Signs Temp 36.8 C 09/22/19 00:39 Pulse 84 09/22/19 00:39 Resp 18 09/22/19 00:39 BP 139/62 09/22/19 00:39 Pulse Ox 98 09/22/19 00:39 Weight - Most Recent: 99.79 kg I&O - Last 24 Hours: Intake & Output 09/22/19 09/22/19 09/22/19 06:59 14:59 22:59 Intake Total 200 Output Total 200 Balance 0 Lab Results Last 24 Hours: Laboratory Results - last 24 hr 09/22/19 09/22/19 Range/Units 14:37 14:40 WBC 6.3 (4.0-11.0) K/uL RBC 4.42 L (4.50-6.50) M/uL Hgb 13.4 (13.0-18.0) g/dL Hct 41.0 (40.0-54.0) % MCV 93 (76-96) fL MCH 30.3 (27.0-32.0) pg MCHC 32.7 (31.0-35.0) g/dL RDW 14.4 (11.0-16.0) % Plt Count 170 (150-400) K/uL MPV 10.4 H (6.0-10.0) fL Neut % (Auto) 61.4 (45.0-70.0) % Lymph % (Auto) 27.3 (20.0-40.0) % [place] % (Auto) 8.9 (3.0-10.0) % Eos % (Auto) 2.2 (1.0-5.0) % Baso % (Auto) 0.2 (0.0-0.5) % Neut # (Auto) 3.88 (2.00-7.50) K/uL Lymph # (Auto) 1.72 (1.50-4.00) K/uL [place] # (Auto) 0.56 (0.20-0.80) K/uL Eos # (Auto) 0.14 (0.04-0.40) K/uL Baso # (Auto) 0.01 L (0.02-0.10) K/uL Sodium 145 (136-145) mmol/L Potassium 4.0 (3.5-5.1) mmol/L Chloride 108 H (98-107) mmol/L Carbon Dioxide 24.5 (21.0-32.0) mmol/L Anion Gap 16.5 H (5.0-15.0) mmol/L BUN 16 (8-26) mg/dL Creatinine 0.83 (0.70-1.30) mg/dL Est Cr Clr Drug Dosing 93.53 mL/min Estimated GFR (MDRD) > 60 (>60) MLS/MIN BUN/Creatinine Ratio 19.3 (6-25) Glucose 115 H (74-100) mg/dL Calcium 8.6 (8.5-10.1) mg/dL Total Bilirubin 0.3 D (0.0-1.0) mg/dL AST 33 (15-37) U/L ALT 39 (12-78) U/L Alkaline Phosphatase 82 (46-116) U/L B-Natriuretic Peptide 136 H (0-125) pg/mL Total Protein 7.3 (6.4-8.2) g/dL Albumin 3.7 (3.4-5.0) g/dL Globulin 3.6 (2.2-4.2) g/dL Albumin/Globulin Ratio 1.0 (0.8-2.0) TSH, Ultra Sensitive 2.241 (0.358-3.740) uIU/mL - Exam General: Alert HEENT: Pupils Equal, Pupils Reactive, EOMI Neck: Supple Lungs: Clear to Auscultation, Normal Respiratory Effort Cardiovascular: Regular Rate, Regular Rhythm Neurological: Other (increased b/l arm weakness; increased confusion; debility compared to discharge from Care center) Psy/Mental Status: Normal Affect, Normal Mood Sepsis Event Note - Evaluation Sepsis Screening Result: No Definite Risk - Problem List & Annotations (1) History of cerebrovascular accident (CVA) with residual deficit SNOMED Code(s): 203549380 Code(s): I69.30 - UNSPECIFIED SEQUELAE OF CEREBRAL INFARCTION Status: Acute Priority: High Current Visit: Yes (2) CVA, Cerebrovascular accident SNOMED Code(s): 467043891 Code(s): I63.9 - CEREBRAL INFARCTION, UNSPECIFIED Status: Chronic Priority: High Current Visit: No (3) Delirium SNOMED Code(s): 8306822 Code(s): R41.0 - DISORIENTATION, UNSPECIFIED Status: Acute Priority: High Current Visit: Yes (4) Weakness SNOMED Code(s): 18502397 Code(s): R53.1 - WEAKNESS Status: Acute Priority: High Current Visit: Yes - Problem List Review Problem List Initiated/Reviewed/Updated: Yes - Plan Plan:: We will continue to monitor patient status. At this time we will consider possible CVA and also consider admit rather than observation. Patient also has delirium. Meds reconciled. CT head and labs to be done. We will discuss further care with .
--- NOTE | 2019-09-22 17:59 | PCM.PN ---
- General Info Date of Service: 09/22/19 - Patient Data Vitals - Most Recent: Last Vital Signs Temp 36.8 C 09/22/19 00:39 Pulse 84 09/22/19 00:39 Resp 18 09/22/19 00:39 BP 139/62 09/22/19 00:39 Pulse Ox 98 09/22/19 00:39 Weight - Most Recent: 99.79 kg I&O - Last 24 Hours: Intake & Output 09/22/19 09/22/19 09/22/19 06:59 14:59 22:59 Intake Total 200 700 Output Total 200 Balance 0 700 Lab Results Last 24 Hours: Laboratory Results - last 24 hr 09/22/19 09/22/19 Range/Units 14:37 14:40 WBC 6.3 (4.0-11.0) K/uL RBC 4.42 L (4.50-6.50) M/uL Hgb 13.4 (13.0-18.0) g/dL Hct 41.0 (40.0-54.0) % MCV 93 (76-96) fL MCH 30.3 (27.0-32.0) pg MCHC 32.7 (31.0-35.0) g/dL RDW 14.4 (11.0-16.0) % Plt Count 170 (150-400) K/uL MPV 10.4 H (6.0-10.0) fL Neut % (Auto) 61.4 (45.0-70.0) % Lymph % (Auto) 27.3 (20.0-40.0) % [place] % (Auto) 8.9 (3.0-10.0) % Eos % (Auto) 2.2 (1.0-5.0) % Baso % (Auto) 0.2 (0.0-0.5) % Neut # (Auto) 3.88 (2.00-7.50) K/uL Lymph # (Auto) 1.72 (1.50-4.00) K/uL [place] # (Auto) 0.56 (0.20-0.80) K/uL Eos # (Auto) 0.14 (0.04-0.40) K/uL Baso # (Auto) 0.01 L (0.02-0.10) K/uL Sodium 145 (136-145) mmol/L Potassium 4.0 (3.5-5.1) mmol/L Chloride 108 H (98-107) mmol/L Carbon Dioxide 24.5 (21.0-32.0) mmol/L Anion Gap 16.5 H (5.0-15.0) mmol/L BUN 16 (8-26) mg/dL Creatinine 0.83 (0.70-1.30) mg/dL Est Cr Clr Drug Dosing 93.53 mL/min Estimated GFR (MDRD) > 60 (>60) MLS/MIN BUN/Creatinine Ratio 19.3 (6-25) Glucose 115 H (74-100) mg/dL Calcium 8.6 (8.5-10.1) mg/dL Total Bilirubin 0.3 D (0.0-1.0) mg/dL AST 33 (15-37) U/L ALT 39 (12-78) U/L Alkaline Phosphatase 82 (46-116) U/L B-Natriuretic Peptide 136 H (0-125) pg/mL Total Protein 7.3 (6.4-8.2) g/dL Albumin 3.7 (3.4-5.0) g/dL Globulin 3.6 (2.2-4.2) g/dL Albumin/Globulin Ratio 1.0 (0.8-2.0) TSH, Ultra Sensitive 2.241 (0.358-3.740) uIU/mL Med Orders - Current: Current Medications Acyclovir (Zovirax) 400 mg PO ASDIRECTED [facility] Aspirin (Aspirin) 81 mg PO DAILY [facility] Baclofen (Lioresal) 10 mg PO TID [facility] Clopidogrel Bisulfate (Plavix) 75 mg PO DAILY [facility] Loperamide HCl (Imodium) 2 mg PO BID PRN PRN Reason: DIARRHEA Losartan Potassium (Cozaar) 25 mg PO DAILY [facility] Non-Formulary Medication (Indomethacin, Submicronized [Indomethacin]) 25 mg PO ASDIRECTED [facility] Rosuvastatin Calcium (Crestor) 20 mg PO BEDTIME [facility] Sertraline HCl (Zoloft) 200 mg PO DAILY [facility] Sepsis Event Note - Evaluation Sepsis Screening Result: No Definite Risk - Problem List Review Problem List Initiated/Reviewed/Updated: Yes - Assessment Assessment:: Acute encephalopathy, R. arm weakness - Plan Plan:: E hospitalist collaboration: Nursing called with concern R. arm weakness. Frederic Griffiths 1945: 73 yro male admitted last night for acute encephalopathy. 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 No fever or chills or leukocytosis and WBC was 6.3. Hemoglobin and platelets were normal. Sodium 145, potassium 4, chloride 108, CO2 24.5, anion gap 16.5, BUN 16, creatinine 0.83, glucose 115, calcium 8.6, total bili 0.3, AST 33, ALT 39, alk phosphatase 82, BNP 136, total protein 7.3, albumin 3.7, TSH 2.241. Head CT today preliminary report no acute findings. Temp 36.8, heart rate 84, respiratory rate 18, BP 139/62, O2 sat 98%. At 830p last nite, noted patient was hungry so she helped him get to the kitchen, he walks with cane using his right hand (was discharged from a care facility not too long ago). He then mentioned he had to go to the bathroom and she noted he was having hard time standing and pivoting and his right arm/hand and was swaying to the right and she asked him if he could move it forward and he kept saying yes, but it didn't move. He hadn't had speech difficulty, but then developed delayed speech. Patient has prior hx of R. CVA with residual left sided weakness of left arm and then uses a brace for left leg and walks with cane out of right hand. Last nite per review of emr, patient/ had not wanted to pursue aggressive care/transfer,and was admitted for evaluation, therapy, obv. Today nursing noted patient had R. arm/hand weakness and not able to feed himself, but typically was able to feed himself on prior admit and confirmed at the prior care facility and confirmed with patient's that the R. arm weakness was new since last nite. On camera, patient was in no distress, he could talk to me, but it felt like he had to think hard before finding the words and so delayed speech. No slurred speech. I asked him if he could lift his right arm off the bed and he said yes, but the arm did not move. I asked him to squeeze the bedside Rn hand and he could and kept his electrifier operator as bedside Rn lifted her hand up and his hand came off the bed. Nursing lifted his arm up about shoulder height and his right arm fell down to the bed. Nursing lifted his right arm up some off the bed by the hip and patient could hold that forearm up some for a little while. His right toes move, he has not stood and nursing reports he needed the lift to be up into the chair. I talked to his Shelly and daughter Michael (a nurse) via conference phone today and I confirmed the right arm/hand weakness is new since last nite and his confirmed this for me since last nite around 830p. I explained on review of records, he is on Plavix and ASA and it is possible he had new tia/stroke or seizure (todds paralysis) or delirium encephalopathy. I think less likely would be a candidate for neuro intervention at this point, but if the and daughter want to be aggressive then would consider discussing tele Neuro or further imaging. I also explained to the /daughter that next step could consider MRI or CTA head and neck and possibly transitioning to anticoagulation instead of Plavix/asa or another combination, but would have to weigh his fall risk/bleeding risk and and daughter think his fall risk is high which inc reases bleeding risk and they are leaning to not do that even if new stroke. I also discussed with /daughter about initially they had not wanted to do a transfer or aggressive care and at this point plan to consider is ongoing pt/ot/Plavix/asa/monitor or consider additional imaging/Neuro discussion and they think they want to keep in [place] and consider imaging in [place] if able and continue therapy. I have discussed with Provider Ena to find out imaging capability in [place] and further determination if discussion with tele neuro for their opinion and Ena will discuss/review with patient/family and oncall provider and call me back. After this evaluation, then patient and daughter will be updated. does not think patient has had afib in the past. I was not able to listen to heart and lungs as the stethoscope was not working for tele med part, but I was able to see and hear and talk to the patient. Please call e hospitalist with any questions.
--- NOTE | 2019-09-23 08:20 | PCM.PN ---
- General Info Date of Service: 09/23/19 Subjective Update: This is a 73yo M with prior history of CVA here for recent weakness, confusion and CVA. He was initially placed into observation but due to his new changes involving the weakness of the right side which has supported his body for walking with a cane/walker and feeding himself prior to this incident he will be placed in acute inpatient. Patient plan discussed with patient and he appears agreeable. His memory appears intact and can recall the month/year, person, place and president. He denies any pain today but has concerns with decision making, asking what would you do in my situation having so many strokes. He denies any other concerns. Functional Status: Reports: Pain Controlled, Tolerating Diet. Denies: Ambulating - Review of Systems General: Reports: Weakness HEENT: Reports: No Symptoms Pulmonary: Reports: No Symptoms Cardiovascular: Reports: No Symptoms Gastrointestinal: Reports: No Symptoms Genitourinary: Reports: No Symptoms Musculoskeletal: Reports: No Symptoms Skin: Reports: No Symptoms Neurological: Reports: Pre-Existing Deficit, Weakness, Other (unable to get up, transfer or ambulate by self due to weakness of right lower ext; left hemiparesis is a pre-existing deficit) Psychiatric: Reports: No Symptoms - Patient Data Vitals - Most Recent: Last Vital Signs Temp 36.8 C 09/22/19 00:39 Pulse 84 09/22/19 00:39 Resp 18 09/22/19 00:39 BP 140/76 09/22/19 10:00 Pulse Ox 98 09/22/19 00:39 Weight - Most Recent: 99.79 kg I&O - Last 24 Hours: Intake & Output 09/22/19 09/23/19 09/23/19 22:59 06:59 14:59 Intake Total 700 550 Balance 700 550 Lab Results Last 24 Hours: Laboratory Results - last 24 hr 09/22/19 09/22/19 Range/Units 14:37 14:40 WBC 6.3 (4.0-11.0) K/uL RBC 4.42 L (4.50-6.50) M/uL Hgb 13.4 (13.0-18.0) g/dL Hct 41.0 (40.0-54.0) % MCV 93 (76-96) fL MCH 30.3 (27.0-32.0) pg MCHC 32.7 (31.0-35.0) g/dL RDW 14.4 (11.0-16.0) % Plt Count 170 (150-400) K/uL MPV 10.4 H (6.0-10.0) fL Neut % (Auto) 61.4 (45.0-70.0) % Lymph % (Auto) 27.3 (20.0-40.0) % [place] % (Auto) 8.9 (3.0-10.0) % Eos % (Auto) 2.2 (1.0-5.0) % Baso % (Auto) 0.2 (0.0-0.5) % Neut # (Auto) 3.88 (2.00-7.50) K/uL Lymph # (Auto) 1.72 (1.50-4.00) K/uL [place] # (Auto) 0.56 (0.20-0.80) K/uL Eos # (Auto) 0.14 (0.04-0.40) K/uL Baso # (Auto) 0.01 L (0.02-0.10) K/uL Sodium 145 (136-145) mmol/L Potassium 4.0 (3.5-5.1) mmol/L Chloride 108 H (98-107) mmol/L Carbon Dioxide 24.5 (21.0-32.0) mmol/L Anion Gap 16.5 H (5.0-15.0) mmol/L BUN 16 (8-26) mg/dL Creatinine 0.83 (0.70-1.30) mg/dL Est Cr Clr Drug Dosing 93.53 mL/min Estimated GFR (MDRD) > 60 (>60) MLS/MIN BUN/Creatinine Ratio 19.3 (6-25) Glucose 115 H (74-100) mg/dL Calcium 8.6 (8.5-10.1) mg/dL Total Bilirubin 0.3 D (0.0-1.0) mg/dL AST 33 (15-37) U/L ALT 39 (12-78) U/L Alkaline Phosphatase 82 (46-116) U/L B-Natriuretic Peptide 136 H (0-125) pg/mL Total Protein 7.3 (6.4-8.2) g/dL Albumin 3.7 (3.4-5.0) g/dL Globulin 3.6 (2.2-4.2) g/dL Albumin/Globulin Ratio 1.0 (0.8-2.0) TSH, Ultra Sensitive 2.241 (0.358-3.740) uIU/mL Med Orders - Current: Current Medications Acyclovir (Zovirax) 400 mg PO ASDIRECTED [facility] Aspirin (Aspirin) 81 mg PO DAILY [facility] Last Admin: 09/22/19 16:00 Dose: 81 mg Documented by: Baclofen (Lioresal) 10 mg PO TID [facility] Last Admin: 09/22/19 20:10 Dose: 10 mg Documented by: Clopidogrel Bisulfate (Plavix) 75 mg PO DAILY [facility] Last Admin: 09/22/19 16:00 Dose: 75 mg Documented by: Losartan Potassium (Cozaar) 25 mg PO DAILY [facility] Last Admin: 09/22/19 10:00 Dose: 25 mg Documented by: Indomethacine 25 Mg (Cap Own Med) 0 mg PO Q8H PRN PRN Reason: gout Loperamide 2 Mg Tab (*Own Med) 0 each PO BID PRN PRN Reason: DIARRHEA Rosuvastatin 40 Mg (Tab Own Med) 0 each PO BEDTIME [facility] Last Admin: 09/22/19 20:10 Dose: 20 each Documented by: Sertraline HCl (Zoloft) 200 mg PO DAILY [facility] Last Admin: 09/22/19 10:00 Dose: 200 mg Documented by: - Exam General: Alert, Oriented, Cooperative HEENT: Pupils Equal, Pupils Reactive, EOMI Neck: Supple Lungs: Clear to Auscultation, Normal Respiratory Effort Cardiovascular: Regular Rate, Regular Rhythm GI/Abdominal Exam: Normal Bowel Sounds Back Exam: Normal Inspection Extremities: Normal Inspection, Normal Range of Motion, Non-Tender, No Pedal Edema, Normal Capillary Refill Neurological: Other (b/l weakness; left side hemiparesis has not changed from prior CVA; current weakness is right sided from new CVA) Sepsis Event Note - Evaluation Sepsis Screening Result: No Definite Risk - Problem List & Annotations (1) History of cerebrovascular accident (CVA) with residual deficit SNOMED Code(s): 814573014 Code(s): I69.30 - UNSPECIFIED SEQUELAE OF CEREBRAL INFARCTION Status: Acute Priority: High Current Visit: Yes (2) CVA, Cerebrovascular accident SNOMED Code(s): 048832742 Code(s): I63.9 - CEREBRAL INFARCTION, UNSPECIFIED Status: Chronic Priority: High Current Visit: Yes (3) Delirium SNOMED Code(s): 2035274 Code(s): R41.0 - DISORIENTATION, UNSPECIFIED Status: Acute Priority: High Current Visit: Yes (4) Weakness SNOMED Code(s): 89943219 Code(s): R53.1 - WEAKNESS Status: Acute Priority: High Current Visit: Yes - Problem List Review Problem List Initiated/Reviewed/Updated: Yes - My Orders Last 24 Hours: My Active Orders 09/22/19 17:42 Patient's Own Medication [Ptom] 0 each PO BID PRN 09/22/19 17:45 Acyclovir [Zovirax] 400 mg PO ASDIRECTED Indomethacin, Submicronized [Indomethacin] 0 mg PO Q8H PRN 09/22/19 20:00 Baclofen [Lioresal] 10 mg PO TID Patient's Own Medication [Ptom] 0 each PO BEDTIME 09/23/19 08:00 Aspirin 81 mg PO DAILY Clopidogrel [Plavix] 75 mg PO DAILY Losartan [Cozaar] 25 mg PO DAILY Sertraline [Zoloft] 200 mg PO DAILY - Assessment Assessment:: Acute encephalopathy, R. arm weakness - Plan Plan:: E hospitalist collaboration: Nursing called with concern R. arm weakness. Frederic Griffiths 1945: 73 yro male admitted last night for acute encephalopathy. 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 No fever or chills or leukocytosis and WBC was 6.3. Hemoglobin and platelets were normal. Sodium 145, potassium 4, chloride 108, CO2 24.5, anion gap 16.5, BUN 16, creatinine 0.83, glucose 115, calcium 8.6, total bili 0.3, AST 33, ALT 39, alk phosphatase 82, BNP 136, total protein 7.3, albumin 3.7, TSH 2.241. Head CT today preliminary report no acute findings. Temp 36.8, heart rate 84, respiratory rate 18, BP 139/62, O2 sat 98%. At 830p last nite, noted patient was hungry so she helped him get to the kitchen, he walks with cane using his right hand (was discharged from a care facility not too long ago). He then mentioned he had to go to the bathroom and she noted he was having hard time standing and pivoting and his right arm/hand and was swaying to the right and she asked him if he could move it forward and he kept saying yes, but it didn't move. He hadn't had speech difficulty, but then developed delayed speech. Patient has prior hx of R. CVA with residual left sided weakness of left arm and then uses a brace for left leg and walks with cane out of right hand. Last nite per review of emr, patient/ had not wanted to pursue aggressive care/transfer,and was admitted for evaluation, therapy, obv. Today nursing noted patient had R. arm/hand weakness and not able to feed himself, but typically was able to feed himself on prior admit and confirmed at the prior care facility and confirmed with patient's that the R. arm weakness was new since last nite. On camera, patient was in no distress, he could talk to me, but it felt like he had to think hard before finding the words and so delayed speech. No slurred speech. I asked him if he could lift his right arm off the bed and he said yes, but the arm did not move. I asked him to squeeze the bedside Rn hand and he could and kept his respiratory therapy director as bedside Rn lifted her hand up and his hand came off the bed. Nursing lifted his arm up about shoulder height and his right arm fell down to the bed. Nursing lifted his right arm up some off the bed by the hip and patient could hold that forearm up some for a little while. His right toes move, he has not stood and nursing reports he needed the lift to be up into the chair. I talked to his Shelly and daughter Michael (a nurse) via conference phone today and I confirmed the right arm/hand weakness is new since last nite and his confirmed this for me since last nite around 830p. I explained on review of records, he is on Plavix and ASA and it is possible he had new tia/stroke or seizure (todds paralysis) or delirium encephalopathy. I think less likely would be a candidate for neuro intervention at this point, but if the and daughter want to be aggressive then would consider discussing tele Neuro or further imaging. I also explained to the /daughter that next step could consider MRI or CTA head and neck and possibly transitioning to anticoagulation instead of Plavix/asa or another combination, but would have to weigh his fall risk/bleeding risk and and daughter think his fall risk is high which increases bleeding risk and they are leaning to not do that even if new stroke. I also discussed with /daughter about initially they had not wanted to do a transfer or aggressive care and at this point plan to consider is ongoing pt/ot/Plavix/asa/monitor or consider additional imaging/Neuro discussion and they think they want to keep in [place] and consider imaging in [place] if able and continue therapy. I have discussed with Provider Ena to find out imaging capability in [place] and further determination if discussion with tele neuro for their opinion and Ena will discuss/review with patient/family and oncall provider and call me back. After this evaluation, then patient and daughter will be updated. does not think patient has had afib in the past. I was not able to listen to heart and lungs as the stethoscope was not working for tele med part, but I was able to see and hear and talk to the patient. Please call e hospitalist with any questions. 09/23/19 - Patient is alert today with concerns to plan of care. Discussed monitoring of neurological concerns and new deficits. Patient understands his condition and prognosis. Patient has been placed into inpatient for CCA monitoring of Neuro and Vitals. PT/OT to be ordered for further management and care. Will discuss with plan of care and management plan for consensus. Plan of care for inpatient management will consist of PT/OT, Speech/Swallow evaluation, continuation of Plavix/ASA, Neuro checks and Vitals. Considering repeat CT for progression of CVA. MRI unavailable at this facility and the time passed now will not change the management plan of care. Please contact e-Hospitalist for any acute changes or concerns today or overnight until we round tomorrow.
[2019-09-23] MEDS: Aspirin 81 MG Tab.Chew PO SCH (08:33)
[2019-09-23] MEDS: Losartan 25 MG Tab PO SCH (08:33)
[2019-09-23] MEDS: Sertraline 100 MG Tab PO SCH (08:34)
[2019-09-23] MEDS: Clopidogrel 75 MG Tab PO SCH (08:34)
[2019-09-23] MEDS: Baclofen 10 MG Tab PO SCH ×3 (08:34→20:13)
[2019-09-23] MEDS ORDERED: Baclofen 10 MG Tab ONE (20:08)
[2019-09-23] MEDS ORDERED: Rosuvastatin 20 MG Tab ONE (20:09)
[2019-09-24] MEDS ORDERED: Aspirin 81 MG Tab.Chew ONE (07:22)
[2019-09-24] MEDS ORDERED: Losartan 25 MG Tab ONE (07:23)
[2019-09-24] MEDS ORDERED: Baclofen 10 MG Tab ONE ×3 (07:23→20:43)
[2019-09-24] MEDS ORDERED: Clopidogrel 75 MG Tab ONE (07:24)
[2019-09-24] MEDS ORDERED: Sertraline 100 MG Tab ONE ×2 (07:24→08:09)
[2019-09-24] MEDS: Sertraline 100 MG Tab PO SCH ×2 (08:00)
[2019-09-24] MEDS: Aspirin 81 MG Tab.Chew PO SCH (08:00)
[2019-09-24] MEDS: Losartan 25 MG Tab PO SCH (08:00)
[2019-09-24] MEDS: Baclofen 10 MG Tab PO SCH ×3 (08:00→20:50)
[2019-09-24] MEDS: Clopidogrel 75 MG Tab PO SCH (08:00)
[2019-09-24] MEDS ORDERED: Indomethacin 25 MG Cap PO PRN (09:54)
[2019-09-24] MEDS ORDERED: Loperamide 2 MG Cap PO PRN (09:55)
--- NOTE | 2019-09-24 18:45 | PCM.PN ---
- General Info Date of Service: 09/24/19 Subjective Update: Patient remains confused with altered mental status. There is minimal improvement with his symptoms. He continues to be weak on the right side with inability to move the right leg and inability to feed himself with the right arm. He was able to walk and transfer and feed himself prior to his admission. Patient denies any pain at this time. No shortness of breath, no chest pain, no other concerns. Functional Status: Reports: Pain Controlled, Tolerating Diet. Denies: Ambulating - Review of Systems General: Reports: Weakness HEENT: Reports: No Symptoms Pulmonary: Reports: No Symptoms Cardiovascular: Reports: No Symptoms Gastrointestinal: Reports: No Symptoms Genitourinary: Reports: No Symptoms Musculoskeletal: Reports: No Symptoms Neurological: Reports: Pre-Existing Deficit, Weakness, Other (only able to move toes slightly on right right leg and unable to lift right arm) Psychiatric: Reports: Confusion - Patient Data Vitals - Most Recent: Last Vital Signs Temp 36.6 C 09/24/19 11:40 Pulse 64 09/24/19 11:40 Resp 18 09/24/19 11:40 BP 139/47 L 09/24/19 11:40 Pulse Ox 94 L 09/24/19 11:40 Weight - Most Recent: 99.79 kg I&O - Last 24 Hours: Intake & Output 09/24/19 09/24/19 09/24/19 06:59 14:59 22:59 Intake Total 120 1000 Output Total 200 Balance 120 800 Med Orders - Current: Current Medications Acyclovir (Zovirax) 400 mg PO [facility]RECTED [facility] Aspirin (Aspirin) 81 mg PO DAILY [facility] Last Admin: 09/24/19 08:00 Dose: 81 mg Documented by: Baclofen (Lioresal) 10 mg PO TID [facility] Last Admin: 09/24/19 14:29 Dose: 10 mg Documented by: Clopidogrel Bisulfate (Plavix) 75 mg PO DAILY [facility] Last Admin: 09/24/19 08:00 Dose: 75 mg Documented by: Indomethacin (Indocin) 25 mg PO Q8H PRN PRN Reason: GOUT Loperamide HCl (Imodium) 2 mg PO BID PRN PRN Reason: CONSTIPATION Losartan Potassium (Cozaar) 25 mg PO DAILY [facility] Last Admin: 09/24/19 08:00 Dose: 25 mg Documented by: Rosuvastatin Calcium (Crestor) 40 mg PO BEDTIME [facility] Sertraline HCl (Zoloft) 200 mg PO DAILY [facility] Last Admin: 09/24/19 08:00 Dose: 200 mg Documented by: Discontinued Medications Aspirin (Aspirin) Confirm Administered Dose 81 mg .ROUTE .STK-MED ONE Stop: 09/24/19 07:23 Last Admin: 09/24/19 08:05 Dose: 81 mg Documented by: Baclofen (Lioresal) Confirm Administered Dose 10 mg .ROUTE .STK-MED ONE Stop: 09/23/19 20:09 Baclofen (Lioresal) Confirm Administered Dose 10 mg .ROUTE .STK-MED ONE Stop: 09/24/19 07:24 Last Admin: 09/24/19 08:08 Dose: 10 mg Documented by: Baclofen (Lioresal) Confirm Administered Dose 10 mg .ROUTE .STK-MED ONE Stop: 09/24/19 14:28 Clopidogrel Bisulfate (Plavix) Confirm Administered Dose 75 mg .ROUTE .STK-MED ONE Stop: 09/24/19 07:25 Last Admin: 09/24/19 08:05 Dose: 75 mg Documented by: Losartan Potassium (Cozaar) Confirm Administered Dose 25 mg .ROUTE .STK-MED ONE Stop: 09/24/19 07:24 Last Admin: 09/24/19 08:05 Dose: 25 mg Documented by: Indomethacine 25 Mg (Cap Own Med) 0 mg PO Q8H PRN PRN Reason: gout Loperamide 2 Mg Tab (*Own Med) 0 each PO BID PRN PRN Reason: DIARRHEA Rosuvastatin 40 Mg (Tab Own Med) 0 each PO BEDTIME [facility] Last Admin: 09/23/19 20:13 Dose: 20 each Documented by: Rosuvastatin Calcium (Crestor) Confirm Administered Dose 20 mg .ROUTE .STK-MED ONE Stop: 09/23/19 20:10 Sertraline HCl (Zoloft) Confirm Administered Dose 200 mg .ROUTE .STK-MED ONE Stop: 09/24/19 07:25 Last Admin: 09/24/19 08:09 Dose: 200 mg Documented by: Sertraline HCl (Zoloft) Confirm Administered Dose 100 mg .ROUTE .STK-MED ONE Stop: 09/24/19 08:10 Last Admin: 09/24/19 14:14 Dose: Not Given Documented by: - Exam General: Other (confused, altered mental status) HEENT: Pupils Equal, Pupils Reactive, EOMI Neck: Supple Lungs: Normal Respiratory Effort, Rhonchi Cardiovascular: Regular Rate, Regular Rhythm GI/Abdominal Exam: Normal Bowel Sounds, Soft, Non-Tender Extremities: Other (contracture of left leg and arm - at baseline) Sepsis Event Note - Evaluation Sepsis Screening Result: No Definite Risk - Focused Exam Vital Signs: Vital Signs Temp Pulse Resp BP BP Pulse Ox 09/24/19 11:40 36.6 C 64 18 139/47 L 94 L 09/24/19 08:05 147/78 H 09/24/19 08:00 138/73 09/24/19 07:08 35.8 C L 55 L 18 147/78 H 94 L - Problem List & Annotations (1) History of cerebrovascular accident (CVA) with residual deficit SNOMED Code(s): 046083286 Code(s): I69.30 - UNSPECIFIED SEQUELAE OF CEREBRAL INFARCTION Status: Acute Priority: High Current Visit: Yes (2) CVA, Cerebrovascular accident SNOMED Code(s): 966418166 Code(s): I63.9 - CEREBRAL INFARCTION, UNSPECIFIED Status: Chronic Priority: High Current Visit: Yes (3) Delirium SNOMED Code(s): 6943369 Code(s): R41.0 - DISORIENTATION, UNSPECIFIED Status: Acute Priority: High Current Visit: Yes (4) Weakness SNOMED Code(s): 88190915 Code(s): R53.1 - WEAKNESS Status: Acute Priority: High Current Visit: Yes - Problem List Review Problem List Initiated/Reviewed/Updated: Yes - My Orders Last 24 Hours: My Active Orders 09/24/19 18:14 Resuscitation Status Routine - Assessment Assessment:: Acute encephalopathy, R. arm weakness - Plan Plan:: E hospitalist collaboration: Nursing called with concern R. arm weakness. Frederic Griffiths 1945: 73 yro male admitted last night for acute encephalopathy. 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 No fever or chills or leukocytosis and WBC was 6.3. Hemoglobin and platelets were normal. Sodium 145, potassium 4, chloride 108, CO2 24.5, anion gap 16.5, BUN 16, creatinine 0.83, glucose 115, calcium 8.6, total bili 0.3, AST 33, ALT 39, alk phosphatase 82, BNP 136, total protein 7.3, albumin 3.7, TSH 2.241. Head CT today preliminary report no acute findings. Temp 36.8, heart rate 84, respiratory rate 18, BP 139/62, O2 sat 98%. At 830p last nite, noted patient was hungry so she helped him get to the kitchen, he walks with cane using his right hand (was discharged from a care facility not too long ago). He then mentioned he had to go to the bathroom and she noted he was having hard time standing and pivoting and his right arm/hand and was swaying to the right and she asked him if he could move it forward and he kept saying yes, but it didn't move. He hadn't had speech difficulty, but then developed delayed speech. Patient has prior hx of R. CVA with residual left sided weakness of left arm and then uses a brace for left leg and walks with cane out of right hand. Last nite per review of emr, patient/ had not wanted to pursue aggressive care/transfer,and was admitted for evaluation, therapy, obv. Today nursing noted patient had R. arm/hand weakness and not able to feed himself, but typically was able to feed himself on prior admit and confirmed at the prior care facility and confirmed with patient's that the R. arm weakness was new since last nite. On camera, patient was in no distress, he could talk to me, but it felt like he had to think hard before finding the words and so delayed speech. No slurred speech. I asked him if he could lift his right arm off the bed and he said yes, but the arm did not move. I asked him to squeeze the bedside Rn hand and he could and kept his receptionist scheduler as bedside Rn lifted her hand up and his hand came off the bed. Nursing lifted his arm up about shoulder height and his right arm fell down to the bed. Nursing lifted his right arm up some off the bed by the hip and patient could hold that forearm up some for a little while. His right toes move, he has not stood and nursing reports he needed the lift to be up into the chair. I talked to his Shelly and daughter Michael (a nurse) via conference phone today and I confirmed the right arm/hand weakness is new since last nite and his confirmed this for me since last nite around 830p. I explained on review of records, he is on Plavix and ASA and it is possible he had new tia/stroke or seizure (todds paralysis) or delirium encephalopathy. I think less likely would be a candidate for neuro intervention at this point, but if the and daughter want to be aggressive then would consider discussing tele Neuro or further imaging. I also explained to the /daughter that next step could consider MRI or CTA head and neck and possibly transitioning to anticoagulation instead of Plavix/asa or another combination, but would have to weigh his fall risk/bleeding risk and and daughter think his fall risk is high which increases bleeding risk and they are leaning to not do that even if new stroke. I also discussed with /daughter about initially they had not wanted to do a transfer or aggressive care and at this point plan to consider is ongoing pt/ot/Plavix/asa/monitor or consider additional imaging/Neuro discussion and they think they want to keep in [place] and consider imaging in [place] if able and continue therapy. I have discussed with Provider Ena to find out imaging capability in [place] and further determination if discussion with tele neuro for their opinion and Ena will discuss/review with patient/family and oncall provider and call me back. After this evaluation, then patient and daughter will be updated. does not think patient has had afib in the past. I was not able to listen to heart and lungs as the stethoscope was not working for tele med part, but I was able to see and hear and talk to the patient. Please call e hospitalist with any questions. 09/23/19 - Patient is alert today with concerns to plan of care. Discussed monito ring of neurological concerns and new deficits. Patient understands his condition and prognosis. Patient has been placed into inpatient for CCA monitoring of Neuro and Vitals. PT/OT to be ordered for further management and care. Will discuss with plan of care and management plan for consensus. Plan of care for inpatient management will consist of PT/OT, Speech/Swallow evaluation, continuation of Plavix/ASA, Neuro checks and Vitals. Considering repeat CT for progression of CVA. MRI unavailable at this facility and the time passed now will not change the management plan of care. Please contact e-Hospitalist for any acute changes or concerns today or overnight until we round tomorrow. 09/24/19 Patient is alert but confused. He has a loss of memory with continued deficits of the right leg and arm. He understands his condition and prognosis. We will continue monitoring Neuro and vitals. Continue PT/OT and Speech eval for swallowing.
[2019-09-25] MEDS ORDERED: Clopidogrel 75 MG Tab ONE (08:05)
[2019-09-25] MEDS ORDERED: Baclofen 10 MG Tab ONE ×3 (08:06→19:40)
[2019-09-25] MEDS ORDERED: Losartan 25 MG Tab ONE (08:06)
[2019-09-25] MEDS ORDERED: Sertraline 100 MG Tab ONE (08:06)
[2019-09-25] MEDS: Aspirin 81 MG Tab.Chew PO SCH (08:32)
[2019-09-25] MEDS: Clopidogrel 75 MG Tab PO SCH (08:33)
[2019-09-25] MEDS: Sertraline 100 MG Tab PO SCH (08:33)
[2019-09-25] MEDS: Baclofen 10 MG Tab PO SCH ×3 (08:38→19:44)
[2019-09-25] MEDS: Losartan 25 MG Tab PO SCH (08:39)
--- NOTE | 2019-09-25 10:14 | PCM.PN ---
- General Info Date of Service: 09/25/19 - Patient Data Vitals - Most Recent: Last Vital Signs Temp 36.6 C 09/24/19 11:40 Pulse 64 09/24/19 11:40 Resp 18 09/24/19 23:00 BP 138/71 09/25/19 08:39 Pulse Ox 94 L 09/24/19 11:40 Weight - Most Recent: 99.79 kg I&O - Last 24 Hours: Intake & Output 09/24/19 09/25/19 09/25/19 22:59 06:59 14:59 Intake Total 1000 120 Output Total 200 Balance 800 120 Med Orders - Current: Current Medications Acyclovir (Zovirax) 400 mg PO ASDIRECTED [facility] Aspirin (Aspirin) 81 mg PO DAILY [facility] Last Admin: 09/25/19 08:32 Dose: 81 mg Documented by: Baclofen (Lioresal) 10 mg PO TID [facility] Last Admin: 09/25/19 08:38 Dose: 10 mg Documented by: Clopidogrel Bisulfate (Plavix) 75 mg PO DAILY [facility] Last Admin: 09/25/19 08:33 Dose: 75 mg Documented by: Indomethacin (Indocin) 25 mg PO Q8H PRN PRN Reason: GOUT Loperamide HCl (Imodium) 2 mg PO BID PRN PRN Reason: CONSTIPATION Losartan Potassium (Cozaar) 25 mg PO DAILY [facility] Last Admin: 09/25/19 08:39 Dose: 25 mg Documented by: Rosuvastatin Calcium (Crestor) 40 mg PO BEDTIME [facility] Last Admin: 09/24/19 20:52 Dose: 40 mg Documented by: Sertraline HCl (Zoloft) 200 mg PO DAILY [facility] Last Admin: 09/25/19 08:33 Dose: 200 mg Documented by: Discontinued Medications Aspirin (Aspirin) Confirm Administered Dose 81 mg .ROUTE .STK-MED ONE Stop: 09/24/19 07:23 Last Admin: 09/24/19 08:05 Dose: 81 mg Documented by: Baclofen (Lioresal) Confirm Administered Dose 10 mg .ROUTE .STK-MED ONE Stop: 09/23/19 20:09 Last Admin: 09/24/19 20:53 Dose: Not Given Documented by: Baclofen (Lioresal) Confirm Administered Dose 10 mg .ROUTE .STK-MED ONE Stop: 09/24/19 07:24 Last Admin: 09/24/19 08:08 Dose: 10 mg Documented by: Baclofen (Lioresal) Confirm Administered Dose 10 mg .ROUTE .STK-MED ONE Stop: 09/24/19 14:28 Last Admin: 09/24/19 20:54 Dose: Not Given Documented by: Baclofen (Lioresal) Confirm Administered Dose 10 mg .ROUTE .STK-MED ONE Stop: 09/24/19 20:44 Last Admin: 09/24/19 20:54 Dose: Not Given Documented by: Baclofen (Lioresal) Confirm Administered Dose 10 mg .ROUTE .STK-MED ONE Stop: 09/25/19 08:07 Last Admin: 09/25/19 08:38 Dose: Not Given Documented by: Clopidogrel Bisulfate (Plavix) Confirm Administered Dose 75 mg .ROUTE .STK-MED ONE Stop: 09/24/19 07:25 Last Admin: 09/24/19 08:05 Dose: 75 mg Documented by: Clopidogrel Bisulfate (Plavix) Confirm Administered Dose 75 mg .ROUTE .STK-MED ONE Stop: 09/25/19 08:06 Last Admin: 09/25/19 08:38 Dose: Not Given Documented by: Losartan Potassium (Cozaar) Confirm Administered Dose 25 mg .ROUTE .STK-MED ONE Stop: 09/24/19 07:24 Last Admin: 09/24/19 08:05 Dose: 25 mg Documented by: Losartan Potassium (Cozaar) Confirm Administered Dose 25 mg .ROUTE .STK-MED ONE Stop: 09/25/19 08:07 Last Admin: 09/25/19 08:39 Dose: Not Given Documented by: Indomethacine 25 Mg (Cap Own Med) 0 mg PO Q8H PRN PRN Reason: gout Loperamide 2 Mg Tab (*Own Med) 0 each PO BID PRN PRN Reason: DIARRHEA Rosuvastatin 40 Mg (Tab Own Med) 0 each PO BEDTIME [facility] Last Admin: 09/23/19 20:13 Dose: 20 each Documented by: Rosuvastatin Calcium (Crestor) Confirm Administered Dose 20 mg .ROUTE .STK-MED ONE Stop: 09/23/19 20:10 Last Admin: 09/24/19 20:53 Dose: Not Given Documented by: Sertraline HCl (Zoloft) Confirm Administered Dose 200 mg .ROUTE .STK-MED ONE Stop: 09/24/19 07:25 Last Admin: 09/24/19 08:09 Dose: 200 mg Documented by: Sertraline HCl (Zoloft) Confirm Administered Dose 100 mg .ROUTE .STK-MED ONE Stop: 09/24/19 08:10 Last Admin: 09/24/19 14:14 Dose: Not Given Documented by: Sertraline HCl (Zoloft) Confirm Administered Dose 200 mg .ROUTE .STK-MED ONE Stop: 09/25/19 08:07 Last Admin: 09/25/19 08:36 Dose: Not Given Documented by: Sepsis Event Note - Evaluation Sepsis Screening Result: No Definite Risk - Focused Exam Vital Signs: Vital Signs Resp BP 09/25/19 08:39 138/71 09/24/19 23:00 18 - Problem List & Annotations (1) History of cerebrovascular accident (CVA) with residual deficit SNOMED Code(s): 782709050 Code(s): I69.30 - UNSPECIFIED SEQUELAE OF CEREBRAL INFARCTION Status: Acute Priority: High Current Visit: Yes (2) CVA, Cerebrovascular accident SNOMED Code(s): 099547423 Code(s): I63.9 - CEREBRAL INFARCTION, UNSPECIFIED Status: Chronic Priority: High Current Visit: Yes (3) Delirium SNOMED Code(s): 0378946 Code(s): R41.0 - DISORIENTATION, UNSPECIFIED Status: Acute Priority: High Current Visit: Yes (4) Weakness SNOMED Code(s): 27644130 Code(s): R53.1 - WEAKNESS Status: Acute Priority: High Current Visit: Yes - My Orders Last 24 Hours: My Active Orders 09/24/19 18:14 Resuscitation Status Routine - Assessment Assessment:: Acute encephalopathy, R. arm weakness - Plan Plan:: E hospitalist collaboration: Nursing called with concern R. arm weakness. Frederic Griffiths 1945: 73 yro male admitted last night for acute encephalopathy. 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 No fever or chills or leukocytosis and WBC was 6.3. Hemoglobin and platelets were normal. Sodium 145, potassium 4, chloride 108, CO2 24.5, anion gap 16.5, BUN 16, creatinine 0.83, glucose 115, calcium 8.6, total bili 0.3, AST 33, ALT 39, alk phosphatase 82, BNP 136, total protein 7.3, albumin 3.7, TSH 2.241. Head CT today preliminary report no acute findings. Temp 36.8, heart rate 84, respiratory rate 18, BP 139/62, O2 sat 98%. At 830p last nite, noted patient was hungry so she helped him get to the kitchen, he walks with cane using his right hand (was discharged from a care facility not too long ago). He then mentioned he had to go to the bathroom and she noted he was having hard time standing and pivoting and his right arm/hand and was swaying to the right and she asked him if he could move it forward and he kept saying yes, but it didn't move. He hadn't had speech difficulty, but then developed delayed speech. Patient has prior hx of R. CVA with residual left sided weakness of left arm and then uses a brace for left leg and walks with cane out of right hand. Last nite per review of emr, patient/ had not wanted to pursue aggressive care/transfer,and was admitted for evaluation, therapy, obv. Today nursing noted patient had R. arm/hand weakness and not able to feed himself, but typically was able to feed himself on prior admit and confirmed at the prior care facility and confirmed with patient's that the R. arm weakness was new since last nite. On camera, patient was in no distress, he could talk to me, but it felt like he had to think hard before finding the words and so delayed speech. No slurred speech. I asked him if he could lift his right arm off the bed and he said yes, but the arm did not move. I asked him to squeeze the bedside Rn hand and he could and kept his police booking officer as bedside Rn lifted her hand up and his hand came off the bed. Nursing lifted his arm up about shoulder height and his right arm fell down to the bed. Nursing lifted his right arm up some off the bed by the hip and patient could hold that forearm up some for a little while. His right toes move, he has not stood and nursing reports he needed the lift to be up into the chair. I talked to his Shelly and daughter Michael (a nurse) via conference phone today and I confirmed the right arm/hand weakness is new since last nite and his confirmed this for me since last nite around 830p. I explained on review of records, he is on Plavix and ASA and it is possible he had new tia/stroke or seizure (todds paralysis) or delirium encephalopathy. I think less likely would be a candidate for neuro intervention at this point, but if the and daughter want to be aggressive then would consider discussing tele Neuro or further imaging. I also explained to the /daughter that next step could consider MRI or CTA head and neck and possibly transitioning to anticoagulation instead of Plavix/asa or another combination, but would have to weigh his fall risk/bleeding risk and and daughter think his fall risk is high which increases bleeding risk and they are leaning to not do that even if new stroke. I also discussed with /daughter about initially they had not wanted to do a transfer or aggressive care and at this point plan to consider is ongoing pt/ot/Plavix/asa/monitor or consider additional imaging/Neuro discussion and they think they want to keep in [place] and consider imaging in [place] if able and continue therapy. I have discussed with Provider Ena to find out imaging capability in [place] and further determination if discussion with tele neuro for their opinion and Ena will discuss/review with patient/family and oncall provider and call me back. After this evaluation, then patient and daughter will be updated. does not think patient has had afib in the past. I was not able to listen to heart and lungs as the stethoscope was not working for tele med part, but I was able to see and hear and talk to the patient. Please call e hospitalist with any questions. 09/23/19 - Patient is alert today with concerns to plan of care. Discussed monitoring of neurological concerns and new deficits. Patient understands his condition and prognosis. Patient has been placed into inpatient for CCA monitoring of Neuro and Vitals. PT/OT to be ordered for further management and care. Will discuss with plan of care and management plan for consensus. Plan of care for inpatient management will consist of PT/OT, Speech/Swallow evaluation, continuation of Plavix/ASA, Neuro checks and Vitals. Considering repeat CT for progression of CVA. MRI unavailable at this facility and the time passed now will not change the management plan of care. Please contact e-Hospitalist for any acute changes or concerns today or overnight until we round tomorrow.
[2019-09-26] MEDS ORDERED: Clopidogrel 75 MG Tab ONE (08:29)
[2019-09-26] MEDS ORDERED: Baclofen 10 MG Tab ONE (08:30)
[2019-09-26] MEDS ORDERED: Losartan 25 MG Tab ONE (08:30)
[2019-09-26] MEDS ORDERED: Sertraline 100 MG Tab ONE (08:30)
[2019-09-26] MEDS: Losartan 25 MG Tab PO SCH (09:04)
[2019-09-26] MEDS: Clopidogrel 75 MG Tab PO SCH (09:04)
[2019-09-26] MEDS: Baclofen 10 MG Tab PO SCH (09:04)
[2019-09-26] MEDS: Aspirin 81 MG Tab.Chew PO SCH (09:04)
[2019-09-26] MEDS: Sertraline 100 MG Tab PO SCH (09:05)
[2019-09-26 09:06] VITALS: BP 128/78
--- NOTE | 2019-09-26 10:01 | PCM.DCSUM1 ---
Discharge Summary - Discharge Data Discharge Date: 09/26/19 Discharge Disposition: DC/Tfer W/I Hosp To Swing [facility] Condition: Good - Referral to Home Health Primary Care Physician: PCP None - Discharge Diagnosis/Problem(s) (1) History of cerebrovascular accident (CVA) with residual deficit SNOMED Code(s): 728190958 ICD Code: I69.30 - UNSPECIFIED SEQUELAE OF CEREBRAL INFARCTION Status: Acute Priority: High Current Visit: Yes (2) CVA, Cerebrovascular accident SNOMED Code(s): 047023459 ICD Code: I63.9 - CEREBRAL INFARCTION, UNSPECIFIED Status: Chronic [place] ority: High Current Visit: Yes (3) Delirium SNOMED Code(s): 6564740 ICD Code: R41.0 - DISORIENTATION, UNSPECIFIED Status: Acute Priority: High Current Visit: Yes (4) Weakness SNOMED Code(s): 36457571 ICD Code: R53.1 - WEAKNESS Status: Acute Priority: High Current Visit: Yes - Patient Summary/Data Consults: Consultations 09/23/19 08:36 Consult to Speech Language Pathology [WELDER/FABRICATOR Evaluation and Treatment] [CONS] Ro utine Please Evaluate and Treat WELDER/FABRICATOR Reason for Consult: Swallow This query below is only for informational purposes and is not editable. Admission Diagnosis/Problem: CVA, Cerebrovascular accident OT Evaluation and Treatment [CONS] Routine Please Evaluate and Treat. OT Reason for Consult: ADL's This query below is only for informational purposes and is not editable. Admission Diagnosis/Problem: CVA, Cerebrovascular accident PT Evaluation and Treatment [CONS] Routine Please Evaluate and Treat. PT Reason for Consult: Ambulation This query below is only for informational purposes and is not editable. Admission Diagnosis/Problem: CVA, Cerebrovascular accident - Discharge Plan *PRESCRIPTION DRUG MONITORING PROGRAM REVIEWED*: Not Applicable *COPY OF PRESCRIPTION DRUG MONITORING REPORT IN PATIENT SHAKILA: Not Applicable Home Medications: Home Meds RX: Sertraline HCl 200 mg PO DAILY 10/28/12 [History] RX: Baclofen [Lioresal] 10 mg PO TID tablet 02/12/17 [Rx] RX: Clopidogrel [Plavix] 75 mg PO DAILY tablet 02/12/17 [Rx] RX: Loperamide [Imodium] 2 mg PO BID PRN cap 02/12/17 [Rx] RX: Losartan [Cozaar] 25 mg PO DAILY tablet 02/12/17 [Rx] RX: Rosuvastatin [Crestor] 20 mg PO BEDTIME tablet 02/12/17 [Rx] RX: Aspirin 81 mg PO DAILY 07/21/17 [History] RX: Acyclovir 400 mg PO ASDIRECTED 08/11/19 [History] RX: Indomethacin, Submicronized [Indomethacin] 25 mg PO ASDIRECTED 08/11/19 [History] RX: Indomethacin [Indocin] 25 mg PO Q8H PRN cap 09/26/19 [Rx] RX: Loperamide [Imodium] 2 mg PO BID PRN cap 09/26/19 [Rx] RX: Rosuvastatin [Crestor] 40 mg PO BEDTIME tablet 09/26/19 [Rx] Patient Handouts: Weakness, [id number] Referrals: PCP,None [Primary Care Provider] - - Discharge Summary/Plan Comment DC Time >30 min.: Yes - General Info Date of Service: 09/26/19 Functional Status: Reports: Pain Controlled, Tolerating Diet - Review of Systems General: Reports: Weakness HEENT: Reports: No Symptoms Pulmonary: Reports: No Symptoms Cardiovascular: Reports: No Symptoms Gastrointestinal: Reports: No Symptoms Genitourinary: Reports: No Symptoms Musculoskeletal: Reports: No Symptoms Skin: Reports: No Symptoms Neurological: Reports: Confusion, Pre-Existing Deficit, Difficulty Walking, Weakness, Change in Speech Psychiatric: Reports: Confusion - Patient Data Vitals - Most Recent: Last Vital Signs Temp 36.9 C 09/25/19 23:00 Pulse 60 09/25/19 23:00 Resp 18 09/25/19 23:00 BP 128/78 09/26/19 09:05 Pulse Ox 97 09/25/19 23:00 Weight - Most Recent: 99.79 kg I&O - Last 24 hours: Intake & Output 09/25/19 09/26/19 09/26/19 22:59 06:59 14:59 Intake Total 1200 200 Output Total 400 275 Balance 800 -75 Med Orders - Current: Current Medications Acyclovir (Zovirax) 400 mg PO ASDIRECTED [facility] Aspirin (Aspirin) 81 mg PO DAILY [facility] Last Admin: 09/26/19 09:04 Dose: 81 mg Documented by: Baclofen (Lioresal) 10 mg PO TID [facility] Last Admin: 09/26/19 09:04 Dose: 10 mg Documented by: Clopidogrel Bisulfate (Plavix) 75 mg PO DAILY [facility] Last Admin: 09/26/19 09:04 Dose: 75 mg Documented by: Indomethacin (Indocin) 25 mg PO Q8H PRN PRN Reason: GOUT Loperamide HCl (Imodium) 2 mg PO BID PRN PRN Reason: CONSTIPATION Losartan Potassium (Cozaar) 25 mg PO DAILY [facility] Last Admin: 09/26/19 09:04 Dose: 25 mg Documented by: Rosuvastatin Calcium (Crestor) 40 mg PO BEDTIME [facility] Last Admin: 09/25/19 19:43 Dose: 40 mg Documented by: Sertraline HCl (Zoloft) 200 mg PO DAILY [facility] Last Admin: 09/26/19 09:05 Dose: 200 mg Documented by: Discontinued Medications Aspirin (Aspirin) Confirm Administered Dose 81 mg .ROUTE .STK-MED ONE Stop: 09/24/19 07:23 Last Admin: 09/24/19 08:05 Dose: 81 mg Documented by: Baclofen (Lioresal) Confirm Administered Dose 10 mg .ROUTE .STK-MED ONE Stop: 09/23/19 20:09 Last Admin: 09/24/19 20:53 Dose: Not Given Documented by: Baclofen (Lioresal) Confirm Administered Dose 10 mg .ROUTE .STK-MED ONE Stop: 09/24/19 07:24 Last Admin: 09/24/19 08:08 Dose: 10 mg Documented by: Baclofen (Lioresal) Confirm Administered Dose 10 mg .ROUTE .STK-MED ONE Stop: 09/24/19 14:28 Last Admin: 09/24/19 20:54 Dose: Not Given Documented by: Baclofen (Lioresal) Confirm Administered Dose 10 mg .ROUTE .STK-MED ONE Stop: 09/24/19 20:44 Last Admin: 09/24/19 20:54 Dose: Not Given Documented by: Baclofen (Lioresal) Confirm Administered Dose 10 mg .ROUTE .STK-MED ONE Stop: 09/25/19 08:07 Last Admin: 09/25/19 08:38 Dose: Not Given Documented by: Baclofen (Lioresal) Confirm Administered Dose 10 mg .ROUTE .STK-MED ONE Stop: 09/25/19 14:14 Last Admin: 09/25/19 14:51 Dose: Not Given Documented by: Baclofen (Lioresal) Confirm Administered Dose 10 mg .ROUTE .STK-MED ONE Stop: 09/25/19 19:41 Last Admin: 09/25/19 19:44 Dose: Not Given Documented by: Baclofen (Lioresal) Confirm Administered Dose 10 mg .ROUTE .STK-MED ONE Stop: 09/26/19 08:31 Last Admin: 09/26/19 09:05 Dose: 10 mg Documented by: Clopidogrel Bisulfate (Plavix) Confirm Administered Dose 75 mg .ROUTE .STK-MED ONE Stop: 09/24/19 07:25 Last Admin: 09/24/19 08:05 Dose: 75 mg Documented by: Clopidogrel Bisulfate (Plavix) Confirm Administered Dose 75 mg .ROUTE .STK-MED ONE Stop: 09/25/19 08:06 Last Admin: 09/25/19 08:38 Dose: Not Given Documented by: Clopidogrel Bisulfate (Plavix) Confirm Administered Dose 75 mg .ROUTE .STK-MED ONE Stop: 09/26/19 08:30 Last Admin: 09/26/19 09:05 Dose: 75 mg Documented by: Losartan Potassium (Cozaar) Confirm Administered Dose 25 mg .ROUTE .STK-MED ONE Stop: 09/24/19 07:24 Last Admin: 09/24/19 08:05 Dose: 25 mg Documented by: Losartan Potassium (Cozaar) Confirm Administered Dose 25 mg .ROUTE .STK-MED ONE Stop: 09/25/19 08:07 Last Admin: 09/25/19 08:39 Dose: Not Given Documented by: Losartan Potassium (Cozaar) Confirm Administered Dose 25 mg .ROUTE .STK-MED ONE Stop: 09/26/19 08:31 Last Admin: 09/26/19 09:05 Dose: 25 mg Documented by: Indomethacine 25 Mg (Cap Own Med) 0 mg PO Q8H PRN PRN Reason: gout Loperamide 2 Mg Tab (*Own Med) 0 each PO BID PRN PRN Reason: DIARRHEA Rosuvastatin 40 Mg (Tab Own Med) 0 each PO BEDTIME [facility] Last Admin: 09/23/19 20:13 Dose: 20 each Documented by: Rosuvastatin Calcium (Crestor) Confirm Administered Dose 20 mg .ROUTE .STK-MED ONE Stop: 09/23/19 20:10 Last Admin: 09/24/19 20:53 Dose: Not Given Documented by: Sertraline HCl (Zoloft) Confirm Administered Dose 200 mg .ROUTE .STK-MED ONE Stop: 09/24/19 07:25 Last Admin: 09/24/19 08:09 Dose: 200 mg Documented by: Sertraline HCl (Zoloft) Confirm Administered Dose 100 mg .ROUTE .STK-MED ONE Stop: 09/24/19 08:10 Last Admin: 09/24/19 14:14 Dose: Not Given Documented by: Sertraline HCl (Zoloft) Confirm Administered Dose 200 mg .ROUTE .STK-MED ONE Stop: 09/25/19 08:07 Last Admin: 09/25/19 08:36 Dose: Not Given Documented by: Sertraline HCl (Zoloft) Confirm Administered Dose 200 mg .ROUTE .STK-MED ONE Stop: 09/26/19 08:31 Last Admin: 09/26/19 09:05 Dose: 200 mg Documented by: - Exam General: Reports: Cooperative HEENT: Reports: Pupils Equal, Pupils Reactive, EOMI Neck: Reports: Supple Lungs: Reports: Normal Respiratory Effort, Rhonchi Cardiovascular: Reports: Regular Rate, Regular Rhythm Back Exam: Reports: Normal Inspection Extremities: Other (contracture of left arm and leg) Neurological: Reports: Other (continued right lower leg paralysis and right arm weakness) Psy/Mental Status: Reports: Alert, Normal Affect, Normal Mood
[2019-09-26 11:25] VITALS: PULSE 88
--- NOTE | 2019-09-29 09:19 | MR ---
DATE OF SERVICE: 09/25/19 CLINICAL DATA: hx of TIAs HEAD MRA: Routine MR protocol without IV contrast was performed. Distal ICAs: No significant stenosis or vessel occlusion. The A1 segment of the left anterior cerebral artery is occluded at its origin. The A1 segment of the right anterior cerebral artery appears normal. The anterior communicating artery is patent. There is normal flow in the A2 segments of both right and left anterior cerebral arteries. Middle cerebral arteries: No significant stenosis or vessel occlusion. No aneurysm. Posterior cerebral arteries: No significant stenosis or vessel occlusion. No aneurysm. Basilar artery: No significant stenosis or vessel occlusion. No aneurysm. [id number] [facility]
== END 2019-09-26 10:00 | disposition swing bed (61) | DRG 65 ==
LOC: LB.ED 21:56 → LB.MS 23:55 → LB.ED 23:55 → UNDOADMOB 23:55 → LB.MS 09-22 08:24 → OBSVTOIN 09-23 08:20
PROVIDERS: ADMIT Physician Assistant Surgical; ATTEND Family Medicine
DX: I63.9 Cerebral infarction, unspecified (principal); R53.1 Weakness; I69.30 Unspecified sequelae of cerebral infarction; G81.91 Hemiplegia, unspecified affecting right dominant side; I69.354 Hemiplegia and hemiparesis following cerebral infarction affecting left non-dominant side; G93.40 Encephalopathy, unspecified; H54.7 Unspecified visual loss; H91.90 Unspecified hearing loss, unspecified ear; E78.00 Pure hypercholesterolemia, unspecified; I10 Essential (primary) hypertension; G47.30 Sleep apnea, unspecified; G54.0 Brachial plexus disorders; Z66 Do not resuscitate; Z86.14 Personal history of Methicillin resistant Staphylococcus aureus infection; Z98.2 Presence of cerebrospinal fluid drainage device; K52.9 Noninfective gastroenteritis and colitis, unspecified; R32 Unspecified urinary incontinence; G89.29 Other chronic pain; M54.9 Dorsalgia, unspecified; I69.398 Other sequelae of cerebral infarction; F41.9 Anxiety disorder, unspecified; F32.9 Major depressive disorder, single episode, unspecified; R47.81 Slurred speech; R41.0 Disorientation, unspecified; R41.3 Other amnesia; Z79.01 Long term (current) use of anticoagulants; Z98.890 Other specified postprocedural states; Z79.899 Other long term (current) drug therapy; Z79.02 Long term (current) use of antithrombotics/antiplatelets; Z79.82 Long term (current) use of aspirin; Z88.2 Allergy status to sulfonamides; Z88.5 Allergy status to narcotic agent; Z88.6 Allergy status to analgesic agent; Z88.8 Allergy status to other drugs, medicaments and biological substances; Z87.891 Personal history of nicotine dependence
CPT/HCPCS: 36415; 70450; 71045; 80053; 83880; 84443; 85025; 99285; A0425; A0429; A9270 ×6; 70544; 92522-GN; 92523-GN; 92526-GN; 92610-GN; 97110-GO; 97110-GP; 97161-GP; 97166-GO; G0378

== ENCOUNTER 2019-09-26 10:02 | Inpatient (IN) | payer MEDICARE ==
--- NOTE | 2019-09-26 12:40 | PCM.HP.2 ---
H&P History of Present Illness - General Date of Service: 09/26/19 Admit Problem/Dx: Admission Diagnosis/Problem Admission Diagnosis/Problem Weakness Source of Information: Patient, Prison Records, Old Records, RN, RN Notes Reviewed - History of Present Illness Initial Comments - Free Text/Narative: This is a 73yo M to be placed in swing bed for rehabilitation and recovery post CVA and delirium. He has had improved right arm strength but not at baseline and cannot feed himself yet. His right leg continues to be paralyzed with minimal movement of the toes. He denies any other issues at this time but he remains bed bound requiring full assist. There has been minimal improvement of his cognition. Onset of Symptoms: Reports: Sudden Duration of Symptoms: Reports: Day(s):, Constant, Improving (only of right arm) Location: Reports: Upper Extremity, Right, Lower Extremity, Right Severity: Severe Improves with: Reports: None Worsens with: Reports: None Associated Symptoms: Reports: Confusion, Weakness - Related Data Allergies/Adverse Reactions: Allergies Allergy/AdvReac Type Severity Reaction Status Date / Time tuberculin, purified protein Allergy Intermediate Hives Verified 08/11/19 14:23 deriva acetaminophen [From Tylenol] Allergy Hives Verified 08/11/19 14:23 codeine Allergy Hives Verified 08/11/19 14:23 ibuprofen Allergy Hives Verified 08/11/19 14:23 morphine Allergy Hives Verified 08/11/19 14:23 sulfamethoxazole Allergy Hives Verified 08/11/19 14:23 [Sulfamethoxazole] Home Medications: Home Meds Sertraline HCl 200 mg PO DAILY 10/28/12 [History] Baclofen [Lioresal] 10 mg PO TID tablet 02/12/17 [Rx] Clopidogrel [Plavix] 75 mg PO DAILY tablet 02/12/17 [Rx] Loperamide [Imodium] 2 mg PO BID PRN cap 02/12/17 [Rx] Losartan [Cozaar] 25 mg PO DAILY tablet 02/12/17 [Rx] Rosuvastatin [Crestor] 20 mg PO BEDTIME tablet 02/12/17 [Rx] Aspirin 81 mg PO DAILY 07/21/17 [History] Acyclovir 400 mg PO ASDIRECTED 08/11/19 [History] Indomethacin, Submicronized [Indomethacin] 25 mg PO ASDIRECTED 08/11/19 [History] Indomethacin [Indocin] 25 mg PO Q8H PRN cap 09/26/19 [Rx] Loperamide [Imodium] 2 mg PO BID PRN cap 09/26/19 [Rx] Rosuvastatin [Crestor] 40 mg PO BEDTIME tablet 09/26/19 [Rx] Past Medical History HEENT History: Reports: Hard of Hearing, Impaired Vision Cardiovascular History: Reports: High Cholesterol, Hypertension, Syncope, Other (See Below) Other Cardiovascular History: hydrocephalus Respiratory History: Reports: Sleep Apnea, SOB, Other (See Below) Other Respiratory History: left thoracic outlet syndrome Gastrointestinal History: Reports: Chronic Diarrhea, Hemorrhoids Other Gastrointestinal History: uses anit-diarrhea med but then became constipated Genitourinary History: Reports: Urinary Incontinence Musculoskeletal History: Reports: Back Pain, Chronic, Fracture Other Musculoskeletal History: R hip, L arm and leg parasthesia and increased muscle tone from CVA Neurological History: Reports: CVA, TIA, Other (See Below) Other Neuro History: 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 Psychiatric History: Reports: Anxiety, Depression Endocrine/Metabolic History: Reports: None Hematologic History: Reports: Anticoagulation Therapy Immunologic History: Reports: None Oncologic (Cancer) History: Reports: None Dermatologic History: Reports: Other (See Below) - Infectious Disease History Infectious Disease History: Reports: Chicken Pox, Influenza, MRSA, Mumps, Pertussis (Whooping Cough) - Past Surgical History Head Surgeries/Procedures: Reports: Shunt HEENT Surgical History: Reports: None Cardiovascular Surgical History: Reports: None Respiratory Surgical History: Reports: Other (See Below) Other Respiratory Surgeries/Procedures: removed 1st left rib GI Surgical History: Reports: Other (See Below) Other GI Surgeries/Procedures: hemorrhoidectomy Male Surgical History: Reports: None Neurological Surgical History: Reports: Laminectomy, Lumbar Spine, Other (See Below) Other Neurological Surgeries/Procedures: shunt revisions Musculoskeletal Surgical History: Reports: Shoulder Surgery, Other (See Below) Other Musculoskeletal Surgeries/Procedures:: Laminectomy Oncologic Surgical History: Reports: None Social & Family History - Family History Family Medical History: Noncontributory Cardiac: Reports: Hypertension Neurological: Reports: CVA - Caffeine Use Caffeine Use: Reports: Coffee H&P Review of Systems - Review of Systems: Review Of Systems: Comprehensive ROS is negative, except as noted in HPI. Exam - Exam Exam: See Below - Exam General: Cooperative HEENT: PERRLA, Conjunctiva Clear, EACs Clear, EOMI Neck: Supple, Trachea Midline Lungs: Normal Respiratory Effort, Rhonchi Cardiovascular: Regular Rate, Regular Rhythm GI/Abdominal Exam: Normal Bowel Sounds, Soft, Non-Tender Extremities: Other (contractures of left leg, left foot and left arm/hand) Skin: Warm, Dry, Intact - Problem List (1) Delirium SNOMED Code(s): 0767282 ICD Code: R41.0 - DISORIENTATION, UNSPECIFIED Status: Acute Priority: High Current Visit: Yes (2) History of cerebrovascular accident (CVA) with residual deficit SNOMED Code(s): 282446876 ICD Code: I69.30 - UNSPECIFIED SEQUELAE OF CEREBRAL INFARCTION Status: Acute Priority: High Current Visit: Yes (3) Weakness SNOMED Code(s): 12942248 ICD Code: R53.1 - WEAKNESS Status: Acute Priority: High Current Visit: Yes (4) CVA, Cerebrovascular accident SNOMED Code(s): 073155714 ICD Code: I63.9 - CEREBRAL INFARCTION, UNSPECIFIED Status: Chronic Priority: High Current Visit: Yes Problem List Initiated/Reviewed/Updated: Yes Orders Last 24hrs: Active Orders 24 hr Category Date Time Status Patient Status [ADT] Routine ADT 09/26/19 10:02 Active Consult to Milling/Polishing Operator [CONS] Routine Cons 09/26/19 10:02 Active Consult to Home Health [CONS] Routine Cons 09/26/19 10:02 Active Consult to Infection Prevention [CONS] Routine Cons 09/26/19 10:02 Active OT Evaluation and Treatment [CONS] Routine Cons 09/26/19 10:02 Active PT Evaluation and Treatment [CONS] Routine Cons 09/26/19 10:02 Active BODY DESIGNER Evaluation and Treatment [CONS] Routine Cons 09/26/19 10:02 Active Resuscitation Status Routine Resus Stat 09/26/19 10:02 Ordered Assessment/Plan Comment:: Patient will continue with PT/OT and Speech management. We will continue Neuro evaluations as needed. Discussed with patient regarding symptoms of right leg paresis and right arm weakness. Continue current medications and management.
[2019-09-26] MEDS: Menthol/Zinc Oxide Ointment 113 GM Tube TOP SCH (15:28)
[2019-09-26] MEDS: Baclofen 10 MG Tab PO SCH ×2 (15:29→20:14)
[2019-09-27] MEDS: Menthol/Zinc Oxide Ointment 113 GM Tube TOP SCH ×3 (00:14→19:48)
[2019-09-27] MEDS: Sertraline 100 MG Tab PO SCH (07:48)
[2019-09-27] MEDS: Losartan 25 MG Tab PO SCH (07:49)
[2019-09-27] MEDS: Clopidogrel 75 MG Tab PO SCH (07:49)
[2019-09-27] MEDS: Aspirin 81 MG Tab.Chew PO SCH (07:49)
[2019-09-27] MEDS: Baclofen 10 MG Tab PO SCH ×3 (07:55→19:49)
[2019-09-28] MEDS: Menthol/Zinc Oxide Ointment 113 GM Tube TOP SCH ×2 (08:00→19:40)
[2019-09-28] MEDS: Sertraline 100 MG Tab PO SCH (08:00)
[2019-09-28] MEDS: Baclofen 10 MG Tab PO SCH ×2 (08:00→19:38)
[2019-09-28] MEDS: Aspirin 81 MG Tab.Chew PO SCH (08:00)
[2019-09-28] MEDS: Losartan 25 MG Tab PO SCH (10:09)
[2019-09-28] MEDS: Clopidogrel 75 MG Tab PO SCH (10:11)
[2019-09-29] MEDS: Aspirin 81 MG Tab.Chew PO SCH (08:30)
[2019-09-29] MEDS: Clopidogrel 75 MG Tab PO SCH (08:31)
[2019-09-29] MEDS: Baclofen 10 MG Tab PO SCH ×3 (08:31→20:47)
[2019-09-29] MEDS: Losartan 25 MG Tab PO SCH (08:31)
[2019-09-29] MEDS: Sertraline 100 MG Tab PO SCH (08:31)
--- NOTE | 2019-09-29 11:36 | PCM.PN ---
- General Info Date of Service: 09/29/19 Subjective Update: This is a 73yo M here for subacute rehabilitation and management. He continues to have weakness of the right arm and continued paralysis of the right leg. 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 Functional Status: Reports: Pain Controlled, Tolerating Diet - Review of Systems General: Reports: Weakness HEENT: Reports: No Symptoms Pulmonary: Reports: No Symptoms Cardiovascular: Reports: No Symptoms Gastrointestinal: Reports: No Symptoms Genitourinary: Reports: No Symptoms Musculoskeletal: Reports: No Symptoms Neurological: Reports: Pre-Existing Deficit, Difficulty Walking, Weakness, Gait Disturbance - Patient Data Vitals - Most Recent: Last Vital Signs Temp 37.0 C 09/27/19 08:00 Pulse 60 09/27/19 08:00 Resp 18 09/27/19 08:00 BP 128/68 09/29/19 08:31 Pulse Ox 96 09/27/19 08:00 Weight - Most Recent: 99.79 kg Med Orders - Current: Current Medications Aspirin (Aspirin) 81 mg PO DAILY [facility] Last Admin: 09/29/19 08:30 Dose: 81 mg Documented by: Baclofen (Lioresal) 10 mg PO TID [facility] Last Admin: 09/29/19 08:31 Dose: 10 mg Documented by: Calamine/Phenol (Calmoseptine) 0 gm TOP BID [facility] Last Admin: 09/28/19 19:40 Dose: 1 applic Documented by: Clopidogrel Bisulfate (Plavix) 75 mg PO DAILY [facility] Last Admin: 09/29/19 08:31 Dose: 75 mg Documented by: Losartan Potassium (Cozaar) 25 mg PO DAILY [facility] Last Admin: 09/29/19 08:31 Dose: 25 mg Documented by: Rosuvastatin Calcium (Crestor) 40 mg PO BEDTIME [facility] Last Admin: 09/28/19 19:38 Dose: 40 mg Documented by: Sertraline HCl (Zoloft) 200 mg PO DAILY [facility] Last Admin: 09/29/19 08:31 Dose: 200 mg Documented by: - Exam General: Cooperative HEENT: Pupils Equal, Pupils Reactive, EOMI Neck: Supple Lungs: Clear to Auscultation, Normal Respiratory Effort Cardiovascular: Regular Rate, Regular Rhythm Extremities: Other (no movement on command of b/l lower legs; weakness of right arm) Sepsis Event Note - Evaluation Sepsis Screening Result: No Definite Risk - Focused Exam Vital Signs: Vital Signs BP 09/29/19 08:31 128/68 - Problem List & Annotations (1) Delirium SNOMED Code(s): 0376936 Code(s): R41.0 - DISORIENTATION, UNSPECIFIED Status: Acute Priority: High Current Visit: Yes (2) History of cerebrovascular accident (CVA) with residual deficit SNOMED Code(s): 877369404 Code(s): I69.30 - UNSPECIFIED SEQUELAE OF CEREBRAL INFARCTION Status: Acute Priority: High Current Visit: Yes (3) Weakness SNOMED Code(s): 09968962 Code(s): R53.1 - WEAKNESS Status: Acute Priority: High Current Visit: Yes (4) CVA, Cerebrovascular accident SNOMED Code(s): 987680550 Code(s): I63.9 - CEREBRAL INFARCTION, UNSPECIFIED Status: Chronic Priority: High Current Visit: Yes (5) Anterior cerebral artery syndrome SNOMED Code(s): 203229758 Code(s): G46.1 - ANTERIOR CEREBRAL ARTERY SYNDROME Status: Acute Priority: High Current Visit: Yes (6) Occlusion of anterior cerebral artery SNOMED Code(s): 41205692 Code(s): I66.19 - OCCLUSION AND STENOSIS OF UNSP ANTERIOR CEREBRAL ARTERY Status: Acute Priority: High Current Visit: Yes - Problem List Review Problem List Initiated/Reviewed/Updated: Yes - Plan Plan:: Patient will continue with PT/OT and Speech management. We will continue Neuro evaluations as needed. Discussed with patient regarding symptoms of right leg paresis and right arm weakness. Continue current medications and management. 09/29/19 Patient will need continued PT/OT and Speech. MRI shows anterior cerebral artery occlusion of the A1 segment of the left anterior cerebral artery which correlates to his right sided weakness and paralysis. Continue current management and support.
[2019-09-29] MEDS: Menthol/Zinc Oxide Ointment 113 GM Tube TOP SCH ×2 (20:48→20:50)
[2019-09-30] MEDS: Losartan 25 MG Tab PO SCH (07:41)
[2019-09-30] MEDS: Aspirin 81 MG Tab.Chew PO SCH (07:41)
[2019-09-30] MEDS: Sertraline 100 MG Tab PO SCH (07:41)
[2019-09-30] MEDS: Baclofen 10 MG Tab PO SCH ×4 (07:41→20:14)
[2019-09-30] MEDS: Clopidogrel 75 MG Tab PO SCH (07:46)
[2019-09-30] MEDS: Menthol/Zinc Oxide Ointment 113 GM Tube TOP SCH ×2 (07:51→20:14)
[2019-10-01] MEDS: Losartan 25 MG Tab PO SCH (08:15)
[2019-10-01] MEDS: Baclofen 10 MG Tab PO SCH ×3 (08:15→19:36)
[2019-10-01] MEDS: Aspirin 81 MG Tab.Chew PO SCH (08:15)
[2019-10-01] MEDS: Clopidogrel 75 MG Tab PO SCH (08:15)
[2019-10-01] MEDS: Menthol/Zinc Oxide Ointment 113 GM Tube TOP SCH ×2 (08:15→20:17)
[2019-10-01] MEDS: Sertraline 100 MG Tab PO SCH (08:15)
[2019-10-01] MEDS ORDERED: Cyclobenzaprine 10 MG Tab PO ONE (19:26)
[2019-10-02] MEDS: Sertraline 100 MG Tab PO SCH (08:18)
[2019-10-02] MEDS: Clopidogrel 75 MG Tab PO SCH (08:18)
[2019-10-02] MEDS: Aspirin 81 MG Tab.Chew PO SCH (08:18)
[2019-10-02] MEDS: Baclofen 10 MG Tab PO SCH ×3 (08:18→19:59)
[2019-10-02] MEDS: Losartan 25 MG Tab PO SCH (08:18)
[2019-10-02] MEDS: Menthol/Zinc Oxide Ointment 113 GM Tube TOP SCH ×2 (08:22→19:59)
[2019-10-03] MEDS: Menthol/Zinc Oxide Ointment 113 GM Tube TOP SCH ×2 (09:30→19:38)
[2019-10-03] MEDS ORDERED: Sertraline 100 MG Tab ONE (09:38)
[2019-10-03] MEDS: Aspirin 81 MG Tab.Chew PO SCH (09:38)
[2019-10-03] MEDS: Baclofen 10 MG Tab PO SCH ×3 (09:38→19:38)
[2019-10-03] MEDS: Sertraline 100 MG Tab PO SCH (09:38)
[2019-10-03] MEDS: Losartan 25 MG Tab PO SCH (09:39)
[2019-10-03] MEDS: Clopidogrel 75 MG Tab PO SCH (09:39)
[2019-10-04] MEDS: Aspirin 81 MG Tab.Chew PO SCH (07:36)
[2019-10-04] MEDS: Sertraline 100 MG Tab PO SCH (07:36)
[2019-10-04] MEDS: Baclofen 10 MG Tab PO SCH ×3 (07:36→20:14)
[2019-10-04] MEDS: Losartan 25 MG Tab PO SCH (07:37)
[2019-10-04] MEDS: Clopidogrel 75 MG Tab PO SCH (07:37)
[2019-10-04] MEDS: Menthol/Zinc Oxide Ointment 113 GM Tube TOP SCH ×2 (08:00→20:08)
[2019-10-04] MEDS ORDERED: Baclofen 10 MG Tab ONE (16:43)
[2019-10-05] MEDS: Sertraline 100 MG Tab PO SCH (08:31)
[2019-10-05] MEDS: Aspirin 81 MG Tab.Chew PO SCH (08:32)
[2019-10-05] MEDS: Losartan 25 MG Tab PO SCH (08:32)
[2019-10-05] MEDS: Baclofen 10 MG Tab PO SCH ×3 (08:32→20:28)
[2019-10-05] MEDS: Clopidogrel 75 MG Tab PO SCH (08:32)
[2019-10-05] MEDS: Menthol/Zinc Oxide Ointment 113 GM Tube TOP SCH ×2 (08:32→20:28)
[2019-10-06] MEDS: Losartan 25 MG Tab PO SCH (07:44)
[2019-10-06] MEDS: Aspirin 81 MG Tab.Chew PO SCH (07:44)
[2019-10-06] MEDS: Menthol/Zinc Oxide Ointment 113 GM Tube TOP SCH ×2 (07:44→19:34)
[2019-10-06] MEDS: Clopidogrel 75 MG Tab PO SCH (07:45)
[2019-10-06] MEDS: Sertraline 100 MG Tab PO SCH (07:45)
[2019-10-06] MEDS: Baclofen 10 MG Tab PO SCH ×3 (07:45→19:34)
--- NOTE | 2019-10-06 08:31 | PCM.PN ---
- General Info Date of Service: 10/06/19 Functional Status: Reports: Pain Controlled, Tolerating Diet - Review of Systems General: Reports: Weakness HEENT: Reports: No Symptoms Pulmonary: Reports: No Symptoms Cardiovascular: Reports: No Symptoms Gastrointestinal: Reports: No Symptoms Musculoskeletal: Reports: No Symptoms Neurological: Reports: Pre-Existing Deficit, Difficulty Walking, Weakness Psychiatric: Reports: No Symptoms - Patient Data Vitals - Most Recent: Last Vital Signs Temp 36.3 C 10/05/19 08:00 Pulse 70 10/05/19 08:00 Resp 16 10/05/19 08:00 BP 144/86 H 10/06/19 07:44 Pulse Ox 96 10/05/19 08:00 Weight - Most Recent: 99.79 kg Med Orders - Current: Current Medications Aspirin (Aspirin) 81 mg PO DAILY [facility] Last Admin: 10/06/19 07:44 Dose: 81 mg Documented by: Baclofen (Lioresal) 10 mg PO TID [facility] Last Admin: 10/06/19 07:45 Dose: 10 mg Documented by: Calamine/Phenol (Calmoseptine) 0 gm TOP BID [facility] Last Admin: 10/06/19 07:44 Dose: 1 applic Documented by: Clopidogrel Bisulfate (Plavix) 75 mg PO DAILY [facility] Last Admin: 10/06/19 07:45 Dose: 75 mg Documented by: Losartan Potassium (Cozaar) 25 mg PO DAILY [facility] Last Admin: 10/06/19 07:44 Dose: 25 mg Documented by: Rosuvastatin Calcium (Crestor) 40 mg PO BEDTIME [facility] Last Admin: 10/05/19 20:28 Dose: 40 mg Documented by: Sertraline HCl (Zoloft) 200 mg PO DAILY [facility] Last Admin: 10/06/19 07:45 Dose: 200 mg Documented by: Discontinued Medications Baclofen (Lioresal) Confirm Administered Dose 10 mg .ROUTE .STK-MED ONE Stop: 10/04/19 16:44 Last Admin: 10/04/19 17:00 Dose: Not Given Documented by: Cyclobenzaprine HCl (Flexeril) 10 mg PO ONETIME ONE Stop: 10/01/19 19:27 Last Admin: 10/01/19 19:36 Dose: 10 mg Documented by: Sertraline HCl (Zoloft) Confirm Administered Dose 100 mg .ROUTE .STK-MED ONE Stop: 10/03/19 09:39 Last Admin: 10/03/19 09:42 Dose: Not Given Documented by: - Exam General: Alert, Oriented, Cooperative HEENT: Pupils Equal, Pupils Reactive, EOMI Neck: Supple Lungs: Clear to Auscultation, Normal Respiratory Effort Cardiovascular: Regular Rate, Regular Rhythm GI/Abdominal Exam: Normal Bowel Sounds, Soft, Non-Tender Extremities: Other (contractures of b/l legs) Skin: Warm, Dry, Intact Neurological: No New Focal Deficit Psy/Mental Status: Alert, Normal Affect, Normal Mood Sepsis Event Note - Evaluation Sepsis Screening Result: No Definite Risk - Focused Exam Vital Signs: Vital Signs BP 10/06/19 07:44 144/86 H - Problem List & Annotations (1) Delirium SNOMED Code(s): 4661444 Code(s): R41.0 - DISORIENTATION, UNSPECIFIED Status: Acute Priority: High Current Visit: Yes (2) History of cerebrovascular accident (CVA) with residual deficit SNOMED Code(s): 172838759 Code(s): I69.30 - UNSPECIFIED SEQUELAE OF CEREBRAL INFARCTION Status: Acute Priority: High Current Visit: Yes (3) Weakness SNOMED Code(s): 08686873 Code(s): R53.1 - WEAKNESS Status: Acute Priority: High Current Visit: Yes (4) CVA, Cerebrovascular accident SNOMED Code(s): 684948150 Code(s): I63.9 - CEREBRAL INFARCTION, UNSPECIFIED Status: Chronic Priority: High Current Visit: Yes (5) Anterior cerebral artery syndrome SNOMED Code(s): 551746663 Code(s): G46.1 - ANTERIOR CEREBRAL ARTERY SYNDROME Status: Acute Priority: High Current Visit: Yes (6) Occlusion of anterior cerebral artery SNOMED Code(s): 02844283 Code(s): I66.19 - OCCLUSION AND STENOSIS OF UNSP ANTERIOR CEREBRAL ARTERY Status: Acute Priority: High Current Visit: Yes - Problem List Review Problem List Initiated/Reviewed/Updated: Yes - Plan Plan:: Patient will continue with PT/OT and Speech management. We will continue Neuro evaluations as needed. Discussed with patient regarding symptoms of right leg paresis and right arm weakness. Continue current medications and management. 09/29/19 Patient will need continued PT/OT and Speech. MRI shows anterior cerebral artery occlusion of the A1 segment of the left anterior cerebral artery which correlates to his right sided weakness and paralysis. Continue current management and support. 10/06/19 Patient will need continued PT/OT and Speech (f/u speech and swallowing). Continue current management and support as improvement seen as he is able to mostly feed himself now.
[2019-10-06] MEDS ORDERED: Loperamide 2 MG Cap PO PRN (15:20)
[2019-10-07] MEDS: Aspirin 81 MG Tab.Chew PO SCH (08:17)
[2019-10-07] MEDS: Clopidogrel 75 MG Tab PO SCH (08:17)
[2019-10-07] MEDS: Losartan 25 MG Tab PO SCH (08:17)
[2019-10-07] MEDS: Sertraline 100 MG Tab PO SCH (08:18)
[2019-10-07] MEDS: Baclofen 10 MG Tab PO SCH ×3 (08:18→19:26)
[2019-10-07] MEDS: Menthol/Zinc Oxide Ointment 113 GM Tube TOP SCH (09:11)
[2019-10-08] MEDS: Sertraline 100 MG Tab PO SCH (08:51)
[2019-10-08] MEDS: Clopidogrel 75 MG Tab PO SCH (08:51)
[2019-10-08] MEDS: Aspirin 81 MG Tab.Chew PO SCH (08:51)
[2019-10-08] MEDS: Baclofen 10 MG Tab PO SCH ×3 (08:52→19:32)
[2019-10-08] MEDS: Losartan 25 MG Tab PO SCH (08:52)
[2019-10-08] MEDS: Menthol/Zinc Oxide Ointment 113 GM Tube TOP SCH ×2 (08:53→19:33)
[2019-10-09] MEDS: Losartan 25 MG Tab PO SCH (08:26)
[2019-10-09] MEDS: Clopidogrel 75 MG Tab PO SCH (08:30)
[2019-10-09] MEDS: Aspirin 81 MG Tab.Chew PO SCH (08:31)
[2019-10-09] MEDS: Baclofen 10 MG Tab PO SCH ×3 (08:31→20:56)
[2019-10-09] MEDS: Sertraline 100 MG Tab PO SCH (08:31)
[2019-10-09] MEDS: Menthol/Zinc Oxide Ointment 113 GM Tube TOP SCH ×2 (11:15→20:58)
[2019-10-10] MEDS: Sertraline 100 MG Tab PO SCH (07:37)
[2019-10-10] MEDS: Baclofen 10 MG Tab PO SCH ×3 (07:37→20:58)
[2019-10-10] MEDS: Aspirin 81 MG Tab.Chew PO SCH (07:37)
[2019-10-10] MEDS: Losartan 25 MG Tab PO SCH (07:37)
[2019-10-10] MEDS: Clopidogrel 75 MG Tab PO SCH (07:37)
[2019-10-10] MEDS: Menthol/Zinc Oxide Ointment 113 GM Tube TOP SCH ×3 (07:38→20:59)
[2019-10-11] MEDS: Aspirin 81 MG Tab.Chew PO SCH (08:41)
[2019-10-11] MEDS: Menthol/Zinc Oxide Ointment 113 GM Tube TOP SCH (08:41)
[2019-10-11] MEDS: Losartan 25 MG Tab PO SCH (08:41)
[2019-10-11] MEDS: Sertraline 100 MG Tab PO SCH (08:41)
[2019-10-11] MEDS: Clopidogrel 75 MG Tab PO SCH (08:42)
[2019-10-11] MEDS: Baclofen 10 MG Tab PO SCH (08:42)
[2019-10-11 08:43] VITALS: BP 132/75
[2019-10-11 10:25] VITALS: PULSE 57
--- NOTE | 2019-10-14 10:29 | PCM.DCSUM1 ---
Discharge Summary - Discharge Data Discharge Date: 10/11/19 Discharge Disposition: DC/Tfer to Other 70 Condition: Good - Referral to Home Health Primary Care Physician: Yaniv Vargas MD - Discharge Diagnosis/Problem(s) (1) Delirium SNOMED Code(s): 2138701 ICD Code: R41.0 - DISORIENTATION, UNSPECIFIED Status: Acute Priority: High (2) History of cerebrovascular accident (CVA) with residual deficit SNOMED Code(s): 573961736 ICD Code: I69.30 - UNSPECIFIED SEQUELAE OF CEREBRAL INFARCTION Status: Acute Priority: High (3) Weakness SNOMED Code(s): 19614547 ICD Code: R53.1 - WEAKNESS Status: Acute Priority: High (4) CVA, Cerebrovascular accident SNOMED Code(s): 132238724 ICD Code: I63.9 - CEREBRAL INFARCTION, UNSPECIFIED Status: Chronic Priority: High (5) Anterior cerebral artery syndrome SNOMED Code(s): 891801125 ICD Code: G46.1 - ANTERIOR CEREBRAL ARTERY SYNDROME Status: Acute Priority: High (6) Occlusion of anterior cerebral artery SNOMED Code(s): 70182980 ICD Code: I66.19 - OCCLUSION AND STENOSIS OF UNSP ANTERIOR CEREBRAL ARTERY Status: Acute Priority: High - Patient Summary/Data Consults: Consultations 09/26/19 10:02 Consult to Network Security Consultant [CONS] Routine Comment: Physician Instructions: Quantity: Consult to Home Health [CONS] Routine Comment: Physician Instructions: Consult to Infection Prevention [CONS] Routine Comment: Physician Instructions: OT Evaluation and Treatment [CONS] Routine Please Evaluate and Treat. OT Reason for Consult: ADL's This query below is only for informational purposes and is not editable. Admission Diagnosis/Problem: Weakness PT Evaluation and Treatment [CONS] Routine Please Evaluate and Treat. PT Reason for Consult: Strengthening This query below is only for informational purposes and is not editable. Admission Diagnosis/Problem: Weakness CONTACT MANAGER Evaluation and Treatment [CONS] Routine Please Evaluate and Treat CONTACT MANAGER Reason for Consult: Swallow This query below is only for informational purposes and is not editable. Admission Diagnosis/Problem: Weakness - Discharge Plan Home Medications: Home Meds Sertraline HCl 200 mg PO DAILY 10/28/12 [History] Clopidogrel [Plavix] 75 mg PO DAILY tablet 02/12/17 [Rx] Losartan [Cozaar] 25 mg PO DAILY tablet 02/12/17 [Rx] Aspirin 81 mg PO DAILY 07/21/17 [History] Rosuvastatin [Crestor] 40 mg PO BEDTIME tablet 09/26/19 [Rx] Loperamide [Imodium] 2 mg PO BID PRN 10/06/19 [History] Baclofen [Lioresal] 15 mg PO TID 10/11/19 [History] Menthol/Zinc Oxide [Calmoseptine] 1 applic TOP BID 10/11/19 [History] Melatonin 3 mg PO BEDTIME 10/12/19 [History] - Discharge Summary/Plan Comment DC Time >30 min.: No Discharge Summary/Plan Comment: Patient to be discharged to respite care. He will eventually be transferred to the Care center. - Patient Data Vitals - Most Recent: Last Vital Signs Temp 36.0 C L 10/11/19 08:00 Pulse 57 L 10/11/19 08:00 Resp 16 10/11/19 08:00 BP 132/75 10/11/19 08:41 Pulse Ox 96 10/11/19 08:00 Weight - Most Recent: 99.79 kg Med Orders - Current: Current Medications Discontinued Medications Aspirin (Aspirin) 81 mg PO DAILY [facility] Last Admin: 10/11/19 08:41 Dose: 81 mg Documented by: Baclofen (Lioresal) 10 mg PO TID [facility] Last Admin: 10/07/19 08:18 Dose: 10 mg Documented by: Baclofen (Lioresal) Confirm Administered Dose 10 mg .ROUTE .STK-MED ONE Stop: 10/04/19 16:44 Last Admin: 10/04/19 17:00 Dose: Not Given Documented by: Baclofen (Lioresal) 15 mg PO TID [facility] Last Admin: 10/11/19 08:42 Dose: 15 mg Documented by: Calamine/Phenol (Calmoseptine) 0 gm TOP BID [facility] Last Admin: 10/11/19 08:41 Dose: 1 applic Documented by: Clopidogrel Bisulfate (Plavix) 75 mg PO DAILY [facility] Last Admin: 10/11/19 08:42 Dose: 75 mg Documented by: Cyclobenzaprine HCl (Flexeril) 10 mg PO ONETIME ONE Stop: 10/01/19 19:27 Last Admin: 10/01/19 19:36 Dose: 10 mg Documented by: Loperamide HCl (Imodium) 2 mg PO BID PRN PRN Reason: Diarrhea Losartan Potassium (Cozaar) 25 mg PO DAILY [facility] Last Admin: 10/11/19 08:41 Dose: 25 mg Documented by: Rosuvastatin Calcium (Crestor) 40 mg PO BEDTIME [facility] Last Admin: 10/10/19 20:59 Dose: 40 mg Documented by: Sertraline HCl (Zoloft) 200 mg PO DAILY [facility] Last Admin: 10/11/19 08:41 Dose: 200 mg Documented by: Sertraline HCl (Zoloft) Confirm Administered Dose 100 mg .ROUTE .[facility]-MED ONE Stop: 10/03/19 09:39 Last Admin: 10/03/19 09:42 Dose: Not Given Documented by:
== END 2019-10-11 10:30 | disposition other institution (70) | DRG 57 ==
LOC: LB.MS 10:02
PROVIDERS: ADMIT Family Medicine; ATTEND Family Medicine
DX: I69.351 Hemiplegia and hemiparesis following cerebral infarction affecting right dominant side (principal); G46.1 Anterior cerebral artery syndrome; R41.0 Disorientation, unspecified; E78.00 Pure hypercholesterolemia, unspecified; G54.0 Brachial plexus disorders; I10 Essential (primary) hypertension; G47.30 Sleep apnea, unspecified; F32.9 Major depressive disorder, single episode, unspecified; F41.9 Anxiety disorder, unspecified; G89.29 Other chronic pain; M54.9 Dorsalgia, unspecified; Z88.8 Allergy status to other drugs, medicaments and biological substances; Z88.5 Allergy status to narcotic agent; Z88.2 Allergy status to sulfonamides; Z79.899 Other long term (current) drug therapy; Z79.82 Long term (current) use of aspirin; Z79.01 Long term (current) use of anticoagulants; Z79.02 Long term (current) use of antithrombotics/antiplatelets; Z98.890 Other specified postprocedural states
CPT/HCPCS: 97110-GO; 97110-GP; 97530-GO; 97535-GO; A9270-GY

== ENCOUNTER 2019-10-11 09:55 | Inpatient (IN) | payer SELFPAY ==
[2019-10-11] MEDS ORDERED: LOPERAMIDE 2 MG PO PRN (13:37)
[2019-10-11] MEDS ORDERED: Melatonin 10 MG Cap PO SCH (20:00)
[2019-10-11] MEDS ORDERED: Non-Formulary Medication 1 Each (Rosuvastatin [Crestor] 40 MG) PO SCH (20:00)
[2019-10-11] MEDS: ZINC OXIDE TOP SCH (21:06)
[2019-10-11] MEDS: MENTHOL TOP SCH (21:06)
[2019-10-12] MEDS: ZINC OXIDE TOP SCH ×2 (07:52→20:08)
[2019-10-12] MEDS: MENTHOL TOP SCH ×2 (07:52→20:08)
[2019-10-12] MEDS: Sertraline 100 MG Tab**OWN MED PO SCH (07:53)
[2019-10-12] MEDS: Losartan 25 MG Tab**OWN MED PO SCH (07:53)
[2019-10-12] MEDS: BACLOFEN 10 MG PO SCH ×3 (07:53→20:08)
[2019-10-12] MEDS: Clopidogrel 75 MG Tab**OWN MED PO SCH (07:53)
[2019-10-12] MEDS: Aspirin 81 MG Tab.EC**OWN MED PO SCH (07:53)
[2019-10-12] MEDS ORDERED: BACLOFEN 10 MG PO SCH (08:00)
[2019-10-12] MEDS: ROSUVASTATIN 40 MG PO SCH ×2 (20:07)
[2019-10-12] MEDS: MELATONIN 3 MG PO SCH (20:09)
[2019-10-13] MEDS: ZINC OXIDE TOP SCH ×2 (08:32→20:30)
[2019-10-13] MEDS: MENTHOL TOP SCH ×2 (08:32→20:30)
[2019-10-13] MEDS: Aspirin 81 MG Tab.EC**OWN MED PO SCH (08:33)
[2019-10-13] MEDS: Clopidogrel 75 MG Tab**OWN MED PO SCH (08:33)
[2019-10-13] MEDS: Sertraline 100 MG Tab**OWN MED PO SCH (08:34)
[2019-10-13] MEDS: Losartan 25 MG Tab**OWN MED PO SCH (08:34)
[2019-10-13] MEDS: BACLOFEN 10 MG PO SCH ×3 (08:36→20:30)
[2019-10-13 17:34] VITALS: PULSE 54
[2019-10-13] MEDS: MELATONIN 3 MG PO SCH (20:30)
[2019-10-13] MEDS: ROSUVASTATIN 40 MG PO SCH (20:41)
[2019-10-14] MEDS: ZINC OXIDE TOP SCH (09:04)
[2019-10-14] MEDS: MENTHOL TOP SCH (09:04)
[2019-10-14] MEDS: Losartan 25 MG Tab**OWN MED PO SCH (09:04)
[2019-10-14 09:05] VITALS: BP 134/62
[2019-10-14] MEDS: Clopidogrel 75 MG Tab**OWN MED PO SCH (09:05)
[2019-10-14] MEDS: Sertraline 100 MG Tab**OWN MED PO SCH (09:05)
[2019-10-14] MEDS: BACLOFEN 10 MG PO SCH (09:05)
[2019-10-14] MEDS: Aspirin 81 MG Tab.EC**OWN MED PO SCH (09:05)
--- NOTE | 2019-10-21 08:14 | PCM.DCSUM1 ---
Discharge Summary - Hospital Course Diagnosis: Stroke: Yes Modified Bartholomew Scale: Mod.Sev.Disability ;Unable to Walk/Attend Bodily Needs W/O Assistance Modified Bartholomew Scale Score: 4 - Discharge Data Discharge Date: 10/14/19 Discharge Disposition: DC/Tfer to Assisted Care 64 Condition: Good - Referral to Home Health Primary Care Physician: Yaniv Vargas MD - Patient Instructions Activity: As Tolerated Driving: Do Not Drive - Discharge Plan Home Medications: Home Meds Sertraline HCl 200 mg PO DAILY 10/28/12 [History] Clopidogrel [Plavix] 75 mg PO DAILY tablet 02/12/17 [Rx] Losartan [Cozaar] 25 mg PO DAILY tablet 02/12/17 [Rx] Aspirin 81 mg PO DAILY 07/21/17 [History] Rosuvastatin [Crestor] 40 mg PO BEDTIME tablet 09/26/19 [Rx] Loperamide [Imodium] 2 mg PO BID PRN 10/06/19 [History] Baclofen [Lioresal] 15 mg PO TID 10/11/19 [History] Menthol/Zinc Oxide [Calmoseptine] 1 applic TOP BID 10/11/19 [History] Melatonin 3 mg PO BEDTIME 10/12/19 [History] - Discharge Summary/Plan Comment DC Time >30 min.: No Discharge Summary/Plan Comment: Patient discharged to care center with PT/OT recommendations. - Patient Data Vitals - Most Recent: Last Vital Signs Temp 35.8 C L 10/13/19 08:00 Pulse 54 L 10/13/19 08:00 Resp 16 10/13/19 08:00 BP 134/62 10/14/19 09:04 Pulse Ox 97 10/13/19 08:00 Weight - Most Recent: 99.79 kg Med Orders - Current: Current Medications Discontinued Medications Aspirin (Halfprin) 81 mg PO DAILY [facility] Last Admin: 10/14/19 09:05 Dose: 81 mg Documented by: Baclofen (Lioresal) 15 mg PO TID [facility] Last Admin: 10/11/19 21:07 Dose: 15 mg Documented by: Baclofen (Lioresal) 15 mg PO TID [facility] Last Admin: 10/14/19 09:05 Dose: 15 mg Documented by: Calamine/Phenol (Calmoseptine) 0 gm TOP BID [facility] Last Admin: 10/14/19 09:04 Dose: 1 applic Documented by: Clopidogrel Bisulfate (Plavix) 75 mg PO DAILY [facility] Last Admin: 10/14/19 09:05 Dose: 75 mg Documented by: Loperamide HCl (Imodium) 2 mg PO BID PRN PRN Reason: Diarrhea Losartan Potassium (Cozaar) 25 mg PO DAILY [facility] Last Admin: 10/14/19 09:04 Dose: 25 mg Documented by: Melatonin (Melatonin) 10 mg PO BEDTIME [facility] Melatonin (Melatonin) 3 mg PO BEDTIME [facility] Last Admin: 10/13/19 20:30 Dose: 3 mg Documented by: Non-Formulary Medication (Rosuvastatin [Crestor]) 40 mg PO BEDTIME [facility] Last Admin: 10/12/19 12:15 Dose: Not Given Documented by: Rosuvastatin Calcium (Crestor) 20 mg PO BEDTIME [facility] Last Admin: 10/13/19 20:41 Dose: 20 mg Documented by: Sertraline HCl (Zoloft) 200 mg PO DAILY [facility] Last Admin: 10/14/19 09:05 Dose: 200 mg Documented by:
== END 2019-10-14 10:13 | DRG 951 ==
LOC: LB.MS 09:55
PROVIDERS: ADMIT Family Medicine; ATTEND Family Medicine
DX: Z75.5 Holiday relief care (principal); G46.1 Anterior cerebral artery syndrome; R53.1 Weakness; R41.0 Disorientation, unspecified; I69.30 Unspecified sequelae of cerebral infarction; I66.19 Occlusion and stenosis of unspecified anterior cerebral artery
CPT/HCPCS: A9270-GY

== ENCOUNTER 2020-08-19 10:06 | Emergency (ER) | payer MEDICARE ==
[2020-08-19 10:33] VITALS: BP 132/62; PULSE 60
--- NOTE | 2020-08-19 10:42 | EDM.PDOC ---
ED HPI GENERAL MEDICAL PROBLEM - General Chief Complaint: General Stated Complaint: BOIL ABCESS Time Seen by Provider: 08/19/20 10:25 Right Shoulder Pain Score (Numeric/FACES): 2 - Related Data Allergies Allergy/AdvReac Type Severity Reaction Status Date / Time tuberculin, purified protein Allergy Intermediate Hives Verified 08/11/19 14:23 deriva acetaminophen [From Tylenol] Allergy Hives Verified 08/11/19 14:23 codeine Allergy Hives Verified 08/11/19 14:23 ibuprofen Allergy Hives Verified 08/11/19 14:23 morphine Allergy Hives Verified 08/11/19 14:23 sulfamethoxazole Allergy Hives Verified 08/11/19 14:23 [Sulfamethoxazole] Home Meds: Home Meds Sertraline HCl 200 mg PO DAILY 10/28/12 [History] Clopidogrel [Plavix] 75 mg PO DAILY tablet 02/12/17 [Rx] Losartan [Cozaar] 25 mg PO DAILY tablet 02/12/17 [Rx] Aspirin 81 mg PO DAILY 07/21/17 [History] Rosuvastatin [Crestor] 40 mg PO BEDTIME tablet 09/26/19 [Rx] Loperamide [Imodium] 2 mg PO BID PRN 10/06/19 [History] Baclofen [Lioresal] 15 mg PO TID 10/11/19 [History] Menthol/Zinc Oxide [Calmoseptine] 1 applic TOP BID 10/11/19 [History] Melatonin 3 mg PO BEDTIME 10/12/19 [History] Past Medical History HEENT History: Reports: Hard of Hearing, Impaired Vision Cardiovascular History: Reports: High Cholesterol, Hypertension, Syncope, Other (See Below) Other Cardiovascular History: hydrocephalus Respiratory History: Reports: Sleep Apnea, SOB, Other (See Below) Other Respiratory History: left thoracic outlet syndrome Gastrointestinal History: Reports: Chronic Diarrhea, Hemorrhoids Other Gastrointestinal History: uses anit-diarrhea med but then became constipated Genitourinary History: Reports: Urinary Incontinence Musculoskeletal History: Reports: Back Pain, Chronic, Fracture Other Musculoskeletal History: R hip, L arm and leg parasthesia and increased muscle tone from CVA Neurological History: Reports: CVA, TIA, Other (See Below) Other Neuro History: 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 Psychiatric History: Reports: Anxiety, Depression Endocrine/Metabolic History: Reports: None Hematologic History: Reports: Anticoagulation Therapy Immunologic History: Reports: None Oncologic (Cancer) History: Reports: None Dermatologic History: Reports: Other (See Below) - Infectious Disease History Infectious Disease History: Reports: Chicken Pox, Influenza, MRSA, Mumps, Pertussis (Whooping Cough) - Past Surgical History Head Surgeries/Procedures: Reports: Shunt HEENT Surgical History: Reports: None Cardiovascular Surgical History: Reports: None Respiratory Surgical History: Reports: Other (See Below) Other Respiratory Surgeries/Procedures: removed 1st left rib GI Surgical History: Reports: Other (See Below) Other GI Surgeries/Procedures: hemorrhoidectomy Male Surgical History: Reports: None Neurological Surgical History: Reports: Laminectomy, Lumbar Spine, Other (See Below) Other Neurological Surgeries/Procedures: shunt revisions Musculoskeletal Surgical History: Reports: Shoulder Surgery, Other (See Below) Other Musculoskeletal Surgeries/Procedures:: Laminectomy Oncologic Surgical History: Reports: None Social & Family History - Family History Family Medical History: No Pertinent Family History Cardiac: Reports: Hypertension Neurological: Reports: CVA - Caffeine Use Caffeine Use: Reports: Coffee ED ROS GENERAL - Review of Systems Review Of Systems: Comprehensive ROS is negative, except as noted in HPI. Skin: Reports: Other (Painful red area on upper back.) ED EXAM, GENERAL - Physical Exam Exam: See Below Skin Exam: Other (Red slightly raised area on upper back - Right side of spine. 3 cm in size with induration. No fluctuance noted with light palpation.) Course - Vital Signs Text/Narrative:: Vital signs reviewed and are nml. Last Recorded V/S: Last Vital Signs Temp 97.7 F 08/19/20 10:28 Pulse 60 08/19/20 10:28 Resp 20 08/19/20 10:28 BP 132/62 08/19/20 10:28 Pulse Ox 98 08/19/20 10:28 Departure - Departure Time of Disposition: 10:15 Disposition: DC/Tfer to [facility] 64 Clinical Impression: Boil, back - Discharge Information Referrals: Yaniv Vargas MD [Primary Care Provider] - Additional Instructions: Augmentin started 875 mg bid x 7 days. Apply warm packs bid for 15 minutes. Probiotic daily. Re check prn. Sepsis Event Note (ED) - Evaluation Sepsis Screening Result: No Definite Risk - Focused Exam Vital Signs: Vital Signs Temp Pulse Resp BP Pulse Ox 08/19/20 10:28 97.7 F 60 20 132/62 98
== END 2020-08-19 10:30 ==
LOC: LB.ED 10:06
DX: L02.222 Furuncle of back [any part, except buttock and flank] (principal); I10 Essential (primary) hypertension; E78.00 Pure hypercholesterolemia, unspecified; Z88.6 Allergy status to analgesic agent; Z88.5 Allergy status to narcotic agent; Z88.2 Allergy status to sulfonamides; Z88.8 Allergy status to other drugs, medicaments and biological substances; Z79.02 Long term (current) use of antithrombotics/antiplatelets; Z79.82 Long term (current) use of aspirin; Z79.899 Other long term (current) drug therapy
CPT/HCPCS: 99283